=== PATIENT | female | born 1940 | race Caucasian/White ===

== ENCOUNTER 2023-04-29 17:44 | Emergency (ER) | payer MEDICARE, SELFPAY ==
[2023-04-29] VITALS (23 sets, daily range): BP systolic 111–164; BP diastolic 44–73; PULSE 78–98; RESP 15–29; TEMP 36.4–38.1; O2SAT 92–95; BMI 32.7
--- NOTE | 2023-04-29 18:24 | EKG12_ITS ---
Test Reason : DYSRHYTHMIA Blood Pressure : / mmHG Vent. Rate : 093 BPM Atrial Rate : 093 BPM P-R Int : 144 ms QRS Dur : 082 ms QT Int : 354 ms P-R-T Axes : -03 -04 026 degrees QTc Int : 440 ms Normal sinus rhythm Minimal voltage criteria for LVH, may be normal variant ( R in aVL ) Nonspecific ST and T wave abnormality Abnormal ECG Confirmed by RADHA HENNING, CELESTE ([id number]), marketing editor MARCO A KIRBY ([id number]) on 05/02/2023 9:37:07 AM Referred By: Confirmed By:DEVON GARCIA MD
[2023-04-29] MEDS: Acetaminophen 500 MG Tablet 1000 MG PO (18:47)
[2023-04-29 19:02] LABS: Absolute Lymphocyte Count 1.21 X10^3/uL (0.83-4.51); Absolute Neutrophil Count 18.1 X10^3/uL (2.0-7.7); Basophil# 0.06 X10^3/uL; Basophil% 0.3 % (0-1); Eosinophil# 0.02 X10^3/uL; Eosinophils% 0.1 % (0-5); Hematocrit 33.1 % (37-47); Hemoglobin 9.1 g/dL (12.0-15.0); Lymphocyte # 1.21 X10^3/ul (0.83-4.51); Lymphocyte % 5.9 % (19-41); Mean Corp Hgb Conc 27.5 g/dL (32-36); Mean Corpuscular Hgb 20.1 pg (27.0-32.0); Mean Corpuscular Volume 73.1 fL (81-99); Mean Platelet Vol. 10.2 fl (6.2-12.0); Monocyte# 0.88 X10^3/uL; Monocyte% 4.3 % (0-10); NRBC Flagged by Analyzer 0 % (0-5); Neutrophil # 18.14 X10^3/uL (2.7-7.7); Neutrophil % 88.9 % (47-70); Platelet Count 425 K/mm3 (150-450); RBC Distribution Width CV 19.1 % (11.6-14.6); RBC Distribution Width SD 49.5 fl (35.1-43.9); Red Blood Count 4.53 M/mm3 (4.2-5.4); White Blood Count 20.4 K/mm3 (4.4-11.0)
--- NOTE | 2023-04-29 19:03 | EX.ED.DYSGE1 ---
HPI History of Present Illness Chief Complaint: Confusion Narrative Narrative: 83-year-old female present with fever and weakness. Patient from his assisted living. Today she has been more confused per family. Patient was seen yesterday at neurology office had a concern for developing dementia. They did not give her hard diagnosis of dementia but did take her off her oxybutynin had a concern this may be causing confusion. Patient unable to transfer today which she is usually been able to do. She complains of right leg weakness more than anything. Patient is alert to self but not day, month, year. No fevers at home that she knows of. No coughing or shortness of breath. Denies urinary complaint. She does complain of back pain and states she has not any trauma. [facility] Medical History Anxiety HTN (hypertension) Home Medications acetaminophen 325 mg capsule 325 mg PO Q4H PRN fever or pain 04/29/23 [History Last Taken Unknown] amlodipine 5 mg tablet 5 mg PO DAILY 04/29/23 [History Last Taken Unknown] bisacodyl 10 mg rectal suppository [address] DAILY PRN constipation 04/29/23 [History Last Taken Unknown] cephalexin 500 mg capsule 500 mg PO Q12 #14 CAPSULES 04/29/23 [Rx Last Taken Unknown] clonidine HCl 0.1 mg tablet 0.1 mg PO Q2H PRN hypertensive emergency 04/29/23 [History Last Taken Unknown] cyanocobalamin (vitamin B-12) 1,000 mcg capsule 1,000 mcg PO DAILY 04/29/23 [History Last Taken Unknown] donepezil 5 mg tablet 5 mg PO QHS 04/29/23 [History Last Taken Unknown] famotidine 40 mg tablet 40 mg PO DAILY 04/29/23 [History Last Taken Unknown] fluoxetine 40 mg capsule 40 mg PO DAILY 04/29/23 [History Last Taken Unknown] loperamide 2 mg capsule (Anti-Diarrheal (loperamide)) 2 mg PO Q4H PRN loose stool 04/29/23 [History Last Taken Unknown] magnesium hydroxide 400 mg/5 mL oral suspension (Milk of Magnesia) 30 ml PO Q24H PRN constipation 04/29/23 [History Last Taken Unknown] mirabegron 25 mg tablet,extended release 24 hr 25 mg PO DAILY 04/29/23 [History Last Taken Unknown] mirtazapine 15 mg tablet 15 mg PO DAILY 04/29/23 [History Last Taken Unknown] polysaccharide iron complex 150 mg iron capsule 150 mg PO DAILY 04/29/23 [History Last Taken Unknown] propranolol 60 mg capsule,24 hr,extended release 60 mg PO DAILY 04/29/23 [History Last Taken Unknown] sennosides 8.6 mg tablet (Evac-U-Gen (sennosides)) 17.2 mg PO BID 04/29/23 [History Last Taken Unknown] sodium phosphates 19 gram-7 gram/118 mL enema (Fleet Enema) [address] DAILY PRN constipation 04/29/23 [History Last Taken Unknown] tramadol 100 mg tablet 100 mg PO Q6H PRN pain 04/29/23 [History Last Taken Unknown] vitamins A,C,X-jsfc-vqjwlx 4,296 mcg-226 mg-90 mg capsule (PreserVision AREDS) 1 cap PO BID 04/29/23 [History Last Taken Unknown] Allergy/AdvReac Type Severity Reaction Status Date / Time No Known Allergies Allergy Verified 04/29/23 17:47 Surgical History S/P hip replacement Social History Smoking Status: Never smoker ROS ROS ED Constitutional Constitutional ED: Denies chills, fever(s) or sweats Eyes Eyes: Denies blurry vision or change in vision ENT ENT ED: Denies ear pain or sore throat Cardiovascular Cardiovascular: Denies chest pain, palpitations or racing heartbeat Respiratory/Chest Respiratory/Chest: Denies cough, dyspnea or sputum Gastrointestinal Gastrointestinal: Denies abdominal pain, constipation, diarrhea, nausea or vomiting Genitourinary Genitourinary ED: Denies dysuria, hematuria or urinary frequency Musculoskeletal Musculoskeletal: Reports back pain; Denies arthralgias, myalgias or neck pain Integumentary Denies abscess, Abrasions or rash Neurologic Neurologic: Denies headache(s), paresthesias or weakness Psychiatric Psychiatric: Reports other Details: Confusion ; Denies anxiety, depression, suicidal ideation or suicidal thoughts Endocrine Endocrinology: Denies polydipsia or polyuria EXAM Physical Exam Const Vital Signs: 04/29/23 17:48 04/29/23 17:50 04/29/23 19:06 Temperature 100.5 F H 100.5 F H 97.5 F L Temperature Source Oral Oral Oral Pulse Rate 98 97 92 Respiratory Rate 19 H 18 15 Blood Pressure 164/73 H 164/73 H 148/56 H Blood Pressure Mean 103 103 86 Pulse Ox 92 92 92 Oxygen Delivery Method Room Air Room Air Room Air 04/29/23 20:32 04/29/23 20:32 04/29/23 21:01 Temperature 98.8 F 98.8 F Temperature Source Oral Oral Pulse Rate 84 85 87 Respiratory Rate 17 16 17 Blood Pressure 140/54 H 140/54 H Blood Pressure Mean 82 82 Pulse Ox 94 93 Oxygen Delivery Method Room Air Room Air 04/29/23 22:25 Temperature 98.8 F Temperature Source Pulse Rate 82 Respiratory Rate 16 Blood Pressure 120/45 L Blood Pressure Mean 70 Pulse Ox 95 Oxygen Delivery Method Positive well nourished General Appearance ED: NAD; Negative for pallor HEENT Reports moist mucous membranes and dry mucous membranes Mouth ED: Yes dry mucous membranes Mouth: dry mucous membranes Eyes PERRL and EOMs intact bilaterally Chest Wall inspection of chest normal Resp normal respiratory effort and clear to auscultation bilaterally Auscultation: Negative for rales, rhonchi or wheezes Cardio regular rate and regular rhythm GI normal to inspection, nondistended, normoactive bowel sounds Back/Spine Thoracic Spine / Upper Back: Negative for thoracic spinal tenderness Lumbar Spine / Lower Back: Negative for lumbar spinal tenderness Extremity normal to inspection Neuro oriented x3 and CN's II-XII intact bilaterally Sensorium / Orientation: alert Psych mental status grossly normal Skin no rashes or lesions noted and no wounds General Skin Exam: Negative for jaundice or pallor MDM MDM MDM Narrative Medical decision making narrative: Patient presenting with confusion. Patient is alert to self but not to place and time. Differential includes COVID, flu, influenza, UTI, dehydration, anemia, electrolyte abnormalities. CBC was obtained to assess white blood cell count, hemoglobin, platelets. CMP to assess liver function, renal function, electrolytes, glucose. High-sensitivity troponin EKG to assess for ischemia/dysrhythmia. Chest x-ray to rule out pneumonia. COVID, influenza, RSV swabs obtained. Urinalysis will be obtained to assess for UTI. Patient has 100.5 temperature here today so she was given a gram of Tylenol. CBC shows leukocytosis of 20.4. Hemoglobin is 9.1 without any reference range as the patient is from [place] however it does look like she has a chronic anemia based on her CBC. Renal function and electrolytes appear normal. LFTs unremarkable. High-sensitivity troponin is 8. EKG on my interpretation shows sinus tachycardia 3 bpm without sign of ischemic change or ectopy. Chest x-ray my interpretation shows no acute process. COVID, influenza, RSV all negative. Urinalysis did come back positive for infection with positive nitrites, 5-10 white blood cells, 4+ bacteria on cath specimen. Patient given a dose of Rocephin. Urine sent for culture. Case was discussed at length with Dr. De La Cruz who is on-call for Dr. Zhao. Since she has stable vital signs and has only UTI she felt it was okay to send her back to the facility. I do believe this is reasonable. I did offer to admit the patient for observation and she thought it was necessary although the patient is stable and she felt she could manage it. Patient will be given Keflex for home. Return precautions were discussed. By the time I went back to the room to discuss with the family they had already gone home. I discussed with the patient at length he appears to understand this at this point. She is discharged with a prescription for Keflex. Impression: 1. UTI 2. Delirium 3. Leukocytosis 4. Anemia Lab Data Attestation: I reviewed the patient's lab results. Labs: Laboratory Results - last 24 hr 04/29/23 04/29/23 17:59 20:30 WBC 20.4 H RBC 4.53 Hgb 9.1 L Hct 33.1 L MCV 73.1 L MCH 20.1 L MCHC 27.5 L RDW Std Deviation 49.5 H RDW Coeff of Berry 19.1 H Plt Count 425 MPV 10.2 Immature Gran % (Auto) 0.500 Neut % (Auto) 88.9 H Lymph % (Auto) 5.9 L [place] % (Auto) 4.3 Eos % (Auto) 0.1 Baso % (Auto) 0.3 Absolute Neuts (auto) 18.1 H Absolute Lymphs (auto) 1.21 Nucleated RBC % 0 Sodium 138 Potassium 3.9 Chloride 107 Carbon Dioxide 26.0 Anion Gap 5 BUN 14 Creatinine 0.72 Estim Creat Clear Calc 57.78 Est GFR (MDRD) Af Amer 100 Est GFR (MDRD) Non-Af 83 BUN/Creatinine Ratio 19.6 Glucose 110 H Calcium 8.6 Total Bilirubin 0.50 AST 22 ALT 13 Alkaline Phosphatase 110 Troponin I High Sens 8 Total Protein 6.9 Albumin 3.1 L Globulin 3.8 Albumin/Globulin Ratio 0.8 L Urine Color Yellow Urine Clarity Sl. Cloudy Urine pH 6.5 Ur Specific [place] 1.010 Urine Protein 30 H Urine Glucose (UA) Normal Urine Ketones 5 H Urine Occult Blood 50 H Urine Nitrite Positive H Urine Bilirubin Negative Urine Urobilinogen Normal Ur Leukocyte Esterase 25 H Urine RBC 0-5 SEEN Urine WBC 5-10 SEEN Ur Squamous Epith Cells 0 SEEN Urine Bacteria 4+ Urine Mucus 0 SEEN Radiography Diagnostic Testing: Clinical Impression(s) from Imaging Studies Chest X-Ray 04/29/23 19:18 IMPRESSION: Hiatal hernia. Electronically Signed: Jagdish James DO at 19:54 EST Reading Location ID and State: [address] [place] [address] Tel [phone], Service support , Discharge Plan Triage Chief Complaint: Confusion ED Provider: Horacio Romero Dx/Rx/DC Orders Instructions: ED ALOC, ED Cystitis Female Adult Prescriptions: New cephalexin 500 mg capsule 500 mg PO Q12 Qty: 14 0RF No Action acetaminophen 325 mg capsule 325 mg PO Q4H PRN (Reason: fever or pain) amlodipine 5 mg tablet 5 mg PO DAILY bisacodyl 10 mg suppository [address] DAILY PRN (Reason: constipation) clonidine HCl 0.1 mg tablet 0.1 mg PO Q2H PRN (Reason: hypertensive emergency) donepezil 5 mg tablet 5 mg PO QHS famotidine 40 mg tablet 40 mg PO DAILY Fleet Enema 19-7 gram/118 mL enema [address] DAILY PRN (Reason: constipation) fluoxetine 40 mg capsule 40 mg PO DAILY loperamide [Anti-Diarrheal (loperamide)] 2 mg capsule 2 mg PO Q4H PRN (Reason: loose stool) Rx Instructions: administer after each loose stool until symptoms controlled; do not exceed 8 mg per 24 hrs magnesium hydroxide [Milk of Magnesia] 400 mg/5 mL suspension 30 ml PO Q24H PRN (Reason: constipation) mirabegron 25 mg tablet extended release 24 hr 25 mg PO DAILY mirtazapine 15 mg tablet 15 mg PO DAILY polysaccharide iron complex 150 mg iron capsule 150 mg PO DAILY PreserVision AREDS 4,296 mcg-226 mg-90 mg capsule 1 cap PO BID propranolol 60 mg capsule,extended release 24 hr 60 mg PO DAILY sennosides [Evac-U-Gen (sennosides)] 8.6 mg tablet 17.2 mg PO BID tramadol 100 mg tablet 100 mg PO Q6H PRN (Reason: pain) cyanocobalamin (vitamin B-12) 1,000 mcg capsule 1,000 mcg PO DAILY Primary Care Provider: Manuel Zhao Referrals: Manuel Zhao MD [Primary Care Provider] - Disposition Disposition: Home, Self Care
--- NOTE | 2023-04-29 19:18 | RAD_ITS ---
INDICATION: fever EXAMINATION/TECHNIQUE: X-RAY - XR Chest 1 View COMPARISON: FINDINGS: LINES/DEVICES: None. LUNGS: No consolidation, edema or effusion. No pneumothorax. MEDIASTINUM AND CARDIOVASCULAR STRUCTURES: Cardiac silhouette not enlarged. Central airways and mediastinal contour are unremarkable. BONES AND SOFT TISSUES: Possible old right sixth rib fracture. Hiatal hernia. RAD/Chest 1 View (Portable) IMPRESSION: Hiatal hernia. Electronically Signed: Jagdish James DO at 19:54 EST ,
[2023-04-29 19:20] LABS: ALB/GLOB Ratio 0.8 RATIO (0.9-2.4); AST(SGOT) 22 U/L (15-37); Alanine Aminotransfer ALT/SGPT 13 U/L (13-56); Albumin, Serum 3.1 g/dL (3.2-5.0); Alkaline Phosphatase 110 U/L (45-117); Anion Gap 5 (5-15); BUN 14 mg/dL (7-18); BUN/Creat Ratio 19.6 RATIO (10-20); Calcium,Total 8.6 mg/dL (8.5-10.1); Chloride 107 mmol/L (98-107); Creatinine, Serum 0.72 mg/dL (0.55-1.02); EST Glomerular Filtration Rate 83 mL/min (>60); Est Glom Filt Rate - Afr Amer 100 mL/min (>60); Estimated Creatinine Clearance 57.78 ml/min; Globulin 3.8 g/dL (2.2-4.2); Glucose 110 mg/dL (74-106); Potassium 3.9 mmol/L (3.5-5.1); Protein, Total 6.9 g/dL (6.4-8.2); Sodium Level 138 mmol/L (136-145); Troponin-I HS 8 pg/mL (3.0-54.0)
[2023-04-29 20:37] LABS: Mucous, Urine 0 SEEN /hpf (<or=2+); Squamous Epithelial Cells - UA 0 SEEN /hpf (5-10)
[2023-04-29 20:38] LABS: Color, Urine Yellow (Yellow); Glucose, Dipstick Normal (Normal); Ketone-Dipstick 5 mg/dl (Negative); Leukocyte Esterase-Dipstick 25 /ul (Negative); Nitrite-Dipstick Positive (Negative); Occult Blood-Urine 50 /ul (Negative); Protein-Dipstick 30 mg/dl (Negative); Urine Bilirubin Dipstick Negative (Negative); Urine Clarity Sl. Cloudy (Clear); Urine Urobilinogen Normal (Normal); Urine pH 6.5 (5.0 - 8.0)
[2023-04-29 20:52] LABS: Bacteria 4+ /hpf (None Seen); Red Blood Cells-Urine 0-5 SEEN /hpf (0-5); White Blood Cells 5-10 SEEN /hpf (0-5)
[2023-04-29] MEDS: Ceftriaxone 1 GM/50 ML BAG IV (21:15)
--- NOTE | 2023-04-29 22:11 | ED.RN ---
report called to [facility] informed that patient would be discharged back to their facility, still awaiting ETA from [facility].
[2023-04-30 04:35] VITALS: BP 140/98; PULSE 88; RESP 19; O2SAT 96
== END 2023-04-30 06:35 | disposition home or self-care (01) ==
PROVIDERS: Emergency Provider Student in an Organized Health Care Education/Training Program; PCP Family Medicine; Visit Provider Student in an Organized Health Care Education/Training Program
DX: N39.0 Urinary tract infection, site not specified (principal); D64.9 Anemia, unspecified; Z11.52 Encounter for screening for COVID-19; D72.829 Elevated white blood cell count, unspecified; R41.0 Disorientation, unspecified; R00.0 Tachycardia, unspecified; I10 Essential (primary) hypertension; F41.9 Anxiety disorder, unspecified; Z79.899 Other long term (current) drug therapy
CPT/HCPCS: 71045; 80053; 81001; 84484; 85025; 87077; 87086; 87088; 87186; 87631; 93005; 96365; 99285; J7050; P9612; A4216

== ENCOUNTER 2023-06-09 08:04 | Day surgery (SDC) | payer MEDICARE, SELFPAY ==
--- NOTE | 2023-06-09 08:36 | PCM.HP.STD ---
HPI - General HPI Narrative TAMIE GONSALEZ, is a 83 F who presents for removal of a nonfunctioning InterStim device and placement of Axonics stage I and II. Informed consent has been obtained. The patient recently moved into this area and establish care with me. Her battery has been for some time and it worked very well for her issues with urge incontinence and nocturnal enuresis. She would like to have it replaced. [facility] Medical History (Updated 06/09/23 @ 09:[address] Estrella Teixeira MD) Anxiety Arthritis Gastric reflux History of edema HTN (hypertension) Injury of head and neck Left knee pain Left rotator cuff tear arthropathy Left shoulder pain Nocturnal enuresis Non-smoker Osteoarthritis of left knee Post-menopausal Urge incontinence Urinary frequency Uses wheelchair Wears glasses Home Medications acetaminophen 325 mg capsule 325 mg PO Q4H PRN fever or pain 04/29/23 [History Last Taken Unknown] amlodipine 5 mg tablet 5 mg PO DAILY 04/29/23 [History Last Taken Unknown] bisacodyl 10 mg rectal suppository 10 mg [place] DAILY PRN constipation 04/29/23 [History Last Taken Unknown] clonidine HCl 0.1 mg tablet 0.1 mg PO Q2H PRN hypertensive emergency 04/29/23 [History Last Taken Unknown] cyanocobalamin (vitamin B-12) 1,000 mcg capsule 1,000 mcg PO DAILY 04/29/23 [History Last Taken Unknown] famotidine 40 mg tablet 40 mg PO DAILY 04/29/23 [History Last Taken Unknown] loperamide 2 mg capsule (Anti-Diarrheal (loperamide)) 2 mg PO Q4H PRN loose stool 04/29/23 [History Last Taken Unknown] magnesium hydroxide 400 mg/5 mL oral suspension (Milk of Magnesia) 30 ml PO Q24H PRN constipation 04/29/23 [History Last Taken Unknown] polysaccharide iron complex 150 mg iron capsule 150 mg PO DAILY 04/29/23 [History Last Taken Unknown] propranolol 60 mg capsule,24 hr,extended release 60 mg PO DAILY 04/29/23 [History Last Taken Unknown] sennosides 8.6 mg tablet (Evac-U-Gen (sennosides)) 17.2 mg PO BID 04/29/23 [History Last Taken Unknown] tramadol 100 mg tablet 100 mg PO Q6H PRN pain 04/29/23 [History Last Taken Unknown] vitamins A,C,I-pfek-sxmxbj 4,296 mcg-226 mg-90 mg capsule (PreserVision AREDS) 1 cap PO BID 04/29/23 [History Last Taken Unknown] aspirin 325 mg tablet,delayed release 325 mg PO DAILY 06/03/23 [History Last Taken Unknown] oxybutynin chloride 5 mg tablet 5 mg PO DAILY 06/03/23 [History Last Taken Unknown] cephalexin 500 mg capsule 500 mg PO Q12 post-operative 3 days #6 CAPSULES 06/09/23 [Rx Last Taken Unknown] oxycodone-acetaminophen 5 mg-325 mg tablet (Percocet) 1 tab PO Q8H PRN pain 3 days #10 tabs 06/09/23 [Rx Last Taken Unknown] Allergy/AdvReac Type Severity Reaction Status Date / Time No Known Allergies Allergy Verified 06/09/23 08:48 Surgical History Hx of bilateral cataract extraction S/P hip replacement Social History Smoking Status: Never smoker ROS Constitutional Constitutional: Reports systems reviewed and no addt'l complaints, except as documented; Denies body ache(s), chills, fever(s) or night sweats Eyes Eyes: Reports systems reviewed and no addt'l complaints, except as documented ENT HEENT: Reports systems reviewed and no addt'l complaints, except as documented Cardiovascular Cardiovascular: Denies abdominal pain, chest pain, diaphoresis, fatigue or nausea Respiratory/Chest Respiratory/Chest: Denies chest congestion, chest tightness or cough Gastrointestinal Gastrointestinal: Denies abdominal pain, anorexia, nausea or vomiting Genitourinary Genitourinary: Reports urinary frequency, urinary incontinence and urinary urgency; Denies abdominal discomfort, flank pain or hematuria Musculoskeletal Musculoskeletal: Reports systems reviewed and no addt'l complaints, except as documented Integumentary Integumentary: Reports systems reviewed and no addt'l complaints, except as documented Neurologic Neurologic: Reports systems reviewed and no addt'l complaints, except as documented Psychiatric Psychiatric: Reports systems reviewed and no addt'l complaints, except as documented Endocrine Endocrinology: Reports systems reviewed and no addt'l complaints, except as documented Hematologic/Lymphatic Hematologic/Lymphatic: Reports systems reviewed and no addt'l complaints, except as documented Allergic/Immunologic Allergic/Immunologic: Reports systems reviewed and no addt'l complaints, except as documented Physical Exam Const alert, oriented x3 and no apparent distress General Appearance: cooperative, comfortable and well kempt HEENT normocephalic, head/scalp atraumatic, hearing grossly normal bilaterally, external ears normal, external nose normal and moist oral mucous membranes Eyes General Eye: normal appearance of both eyes Neck supple General: normal visual inspection Lymph Lymphatic: no lymphedema noted Chest inspection of chest normal Chest: symmetrical chest wall rise Resp normal respiratory effort, normal air movement and no retractions Cardio regular rate and regular rhythm GI soft to palpation, non-tender and non-distended no CVA tenderness Back/Spine no CVA tenderness Extremity normal to inspection Skin no rashes or lesions noted, no wounds, skin turgor normal, no jaundice, no petechiae and no mottling Neuro oriented x3 and CN's II-XII intact bilaterally Psych mental status grossly normal Results Lab / Micro Data 06/09/23 09:05 06/09/23 09:05 Assessment & Plan Assessment/Plan (1) Urge incontinence: (2) Nocturnal enuresis: PLAN: Plan Proceed with InterStim battery and lead removal and Axonics stage I and II insertion Informed consent has been obtained Vancomycin preoperatively
--- NOTE | 2023-06-09 08:41 | EX.PCM.DISCH ---
Discharge Instructions Diet Discharge Diet: No restrictions Activity Discharge Activity: May Shower (on Tuesday) May resume sexual activity in: 4 weeks Dressing / Incision Call your doctor if your incision/area has: Continuous Slow Oozing, Sudden Increased Bleeding, Increased Pain/ Swelling, Increased Redness, Foul Smelling Discharge and Swelling at the incision site Call your doctor if you observe: Fever of 101 or Higher, Inability to urinate and Inability to have a bowel movement Follow Up Care Please Follow Up With: Estrella Teixeira MD When: in the office in 4 weeks Test Results: Test results from this visit will be discussed in further detail at your follow-up appointment, if applicable. Discharge Plan Admission Attending Provider: Estrella Teixeira Primary Care Provider: Manuel Zhao Discharge Orders/Prescriptions Prescriptions: New oxycodone-acetaminophen [Percocet] 5-325 mg tablet 1 tab PO Q8H PRN (Reason: pain) 3 Days Qty: 10 0RF cephalexin [cephalexin] 500 mg capsule 500 mg PO Q12 3 Days Qty: 6 0RF Continued acetaminophen 325 mg capsule 325 mg PO Q4H PRN (Reason: fever or pain) amlodipine 5 mg tablet 5 mg PO DAILY bisacodyl 10 mg suppository 10 mg CO DAILY PRN (Reason: constipation) clonidine HCl 0.1 mg tablet 0.1 mg PO Q2H PRN (Reason: hypertensive emergency) Patient Comments: SBP>180 AND OR DBP>100 famotidine 40 mg tablet 40 mg PO DAILY loperamide [Anti-Diarrheal (loperamide)] 2 mg capsule 2 mg PO Q4H PRN (Reason: loose stool) Rx Instructions: administer after each loose stool until symptoms controlled; do not exceed 8 mg per 24 hrs magnesium hydroxide [Milk of Magnesia] 400 mg/5 mL suspension 30 ml PO Q24H PRN (Reason: constipation) polysaccharide iron complex 150 mg iron capsule 150 mg PO DAILY PreserVision AREDS 4,296 mcg-226 mg-90 mg capsule 1 cap PO BID propranolol 60 mg capsule,extended release 24 hr 60 mg PO DAILY sennosides [Evac-U-Gen (sennosides)] 8.6 mg tablet 17.2 mg PO BID tramadol 100 mg tablet 100 mg PO Q6H PRN (Reason: pain) cyanocobalamin (vitamin B-12) 1,000 mcg capsule 1,000 mcg PO DAILY aspirin 325 mg tablet,delayed release (DR/EC) 325 mg PO DAILY oxybutynin chloride 5 mg tablet 5 mg PO DAILY Referrals / Follow Up: Manuel Zhao MD [Primary Care Provider] - Disposition Disposition (needs filled in before D/C Order can be placed): Home, Self Care
[2023-06-09 08:49] VITALS: BP 159/79; PULSE 72; RESP 16; TEMP 36.1; O2SAT 98; BMI 31.3
[2023-06-09] MEDS: Vancomycin HCl 1,250 MG in 0.9% Normal Saline (250mL Bag) 250 ML 167 MG IV (09:09)
[2023-06-09] MEDS: Lactated Ringers 1,000 ML 15 ML IV (09:09)
[2023-06-09 09:15] LABS: Hematocrit 34.8 % (37-47); Hemoglobin 9.7 g/dL (12.0-15.0); Mean Corp Hgb Conc 27.9 g/dL (32-36); Mean Corpuscular Hgb 20.2 pg (27.0-32.0); Mean Corpuscular Volume 72.5 fL (81-99); Mean Platelet Vol. 9.5 fl (6.2-12.0); Platelet Count 394 K/mm3 (150-450); RBC Distribution Width CV 18.7 % (11.6-14.6)
[2023-06-09 09:33] LABS: Anion Gap 1 (5-15); BUN 21 mg/dL (7-18); BUN/Creat Ratio 28.1 RATIO (10-20); Calcium,Total 8.9 mg/dL (8.5-10.1); Chloride 110 mmol/L (98-107); Creatinine, Serum 0.75 mg/dL (0.55-1.02); EST Glomerular Filtration Rate 79 mL/min (>60); Est Glom Filt Rate - Afr Amer 95 mL/min (>60); Estimated Creatinine Clearance 56.46 ml/min; Glucose 106 mg/dL (74-106); Potassium 3.8 mmol/L (3.5-5.1); Sodium Level 141 mmol/L (136-145)
--- NOTE | 2023-06-09 09:45 | RAD_ITS ---
STUDY: X-RAY - PELVIS REASON FOR EXAM: Female, 83 years old. REMOVAL INTERSTIM, AXONICS STAGE 1 2 -- -- fluoro time 29 sec -- 12.53 mgy TECHNIQUE: 6 intraoperative views of the pelvis obtained. COMPARISON: None. FINDINGS: Intraoperative fluoroscopy utilized during stimulator replacement . RAD/Pelvis 1 or 2 Views IMPRESSION: Intraoperative fluoroscopy. Electronically Signed: Seth Berry MD at 11:14 EDT ,
[2023-06-09] MEDS: Lidocaine 2% /Epi 1:100 (20ml) 20 ML VIAL (10:42)
[2023-06-09 11:00] VITALS: BP 159/79; BP 169/77; PULSE 79; RESP 16; TEMP 37.5; O2SAT 96
[2023-06-09 11:05] VITALS: BP 155/83; BP 159/79; PULSE 77; RESP 16; O2SAT 95
[2023-06-09 11:10] VITALS: BP 159/79; BP 168/70; PULSE 76; RESP 16; O2SAT 95
[2023-06-09 11:14] VITALS: BP 159/79; BP 167/73; PULSE 77; RESP 16; TEMP 37.3; O2SAT 95
[2023-06-09 11:39] VITALS: BP 159/79
--- NOTE | 2023-06-09 12:17 | PCM.OPRPT ---
Report of Operation Date of Procedure: 06/09/23 Pre-Operative Diagnosis: Urge incontinence, nocturnal enuresis Post-Operative Diagnosis: Same Surgery/Procedure Performed:: Removal InterStim lead and battery, Axonics stage I and II Surgeon: Estrella Teixeira Type of Anesthesia: MAC Estimated Blood Loss (mL): 5 cc Description of Procedure: The patient is an 83-year-old female with an indwelling InterStim device that is no longer functioning. She is having recurrence of her urge incontinence and nocturnal enuresis and has agreed to proceed with removal of the InterStim battery and lead with placement of Axonics battery and lead. Informed consent was obtained. The patient was taken to the operating room and placed on the in a prone position on the operating room table. She was appropriately secured and padded. Anesthesia monitored the head, neck, airway, IV access and vital signs throughout the case. Once anesthesia was appropriately administered the patient was prepped and draped in usual sterile fashion. The incisions from the previous InterStim insertion site were infiltrated with lidocaine. These incisions were reopened with a knife and Bovie cautery was used to identify the battery which was then brought into the operative field. The lead was grasped with a hemostat and the battery was removed. With tension on the lead the insertion site of the lead was identified in the area overlying this was opened with a knife. Blunt dissection was performed until the lead was identified. Using 2 hemostats and constant pressure, the lead in its entirety with all tines intact was removed. These areas were irrigated for infection control. The decision was made to place the new unit with the lead on the patient's contralateral side for prevention of infection. Using fluoroscopic visualization the S3 foramen was marked out onto her skin and the insertion sites were infiltrated with lidocaine. The needle was placed through the S3 foramen on the patient's right side and stimulation provided minimal анна response with no foot rotation. The decision was made to leave the lead in this location. The guidewire was placed through the needle which was then removed. A skin incision was made and the dilator was inserted over the guidewire. The lead was placed into the dilator through the foramen. The dilator was retracted leaving the lead in good position. All 4 portions of the lead received a анна response without foot rotation. The lead was then left in situ and was tunneled into the existing pocket site. The pocket site was dry. Then lead was dried and then inserted into the Axonics battery and secured using the torque wrench. The battery was then placed into the pocket site and closed with 2 layers including 3-0 interrupted Vicryl followed by 4-0 Monocryl in subcuticular fashion. Skin glue was then applied. The new lead insertion site and the removal sites were both closed in the same fashion with 3-0 Vicryl followed by 4-0 Monocryl and skin glue. Once this was completely dry, the patient was awakened and taken to the recovery room in good condition. There were no complications during this procedure. Grafts/Implants Used: Axonics lead and battery Complications None Admit VTE Documentation VTE Present on Admission: No VTE Mechan Device Prophylaxis: None VTE Pharm Prophylaxis ordered?: No Reason prophylaxis not ordered:: Treatment Not Indicated
== END 2023-06-09 12:11 | disposition home or self-care (01) ==
LOC: SDC 08:13 → AC 08:15
PROVIDERS: PCP Family Medicine; Referring Provider Family Medicine; Visit Provider Urology
PROC: (CPT 64590; principal; 2023-06-09 09:40)
DX: Z45.42 Encounter for adjustment and management of neurostimulator (principal); N39.41 Urge incontinence; N39.44 Nocturnal enuresis; I10 Essential (primary) hypertension; R35.0 Frequency of micturition; Z79.899 Other long term (current) drug therapy; Z79.82 Long term (current) use of aspirin; F41.9 Anxiety disorder, unspecified; M19.90 Unspecified osteoarthritis, unspecified site; K21.9 Gastro-esophageal reflux disease without esophagitis
CPT/HCPCS: 64590; 64581; 00300; 72170; 76000; 80048; 85027; J7050; J7120; J2405

== ENCOUNTER → 2023-08-25 | Outpatient (CLI) | payer MEDICARE, SELFPAY | END | disposition home or self-care (01) | PROVIDERS: PCP Family Medicine; Referring Provider Surgery; Visit Provider Surgery | DX: R19.7 Diarrhea, unspecified (principal); R10.9 Unspecified abdominal pain | CPT/HCPCS: 87177; 87209; 87493 ==

== ENCOUNTER 2023-09-20 15:38 | Inpatient (IN) | payer MEDICARE, SELFPAY ==
[2023-09-20] VITALS (19 sets, daily range): BP systolic 149–222; BP diastolic 59–83; PULSE 69–87; RESP 14–18; TEMP 36.2–37.5; O2SAT 87–100; BMI 32.1
--- NOTE | 2023-09-20 09:48 | PRE.ANES_ITS ---
ASA Classification* ASA Classification ASA Classification: 3 Assessment & Plan Anesthesia* Anesthesia Assessment Anesthesia Assessment: Discussed sedation and/or anesthesia options, risks, benefits, and alternatives with patient/parents/legal guardian/POA. Questions invited. The patient/parents/legal guardian/POA seems to understand and agrees to proceed with anesthesia plan. Reviewed the physical assessment, medical history, allergy history and patient home medications list prior to surgery/procedure/anesthetic and documented any changes. Performed airway and anesthesia risk assessments. Anesthesia Type Anesthesia Type: MAC Anesthesia Focused Assessment* Airway Assessment Mouth opens: >3 cm Mallampati Score: II Focused Labs Anesthesia Preop lab: CBC WBC 12.0 K/mm3 (4.4-11.0) H 06/09/23 09:05 RBC 4.80 M/mm3 (4.2-5.4) 06/09/23 09:05 Hgb 9.7 g/dL (12.0-15.0) L 06/09/23 09:05 Hct 34.8 % (37-47) L 06/09/23 09:05 Plt Count 394 K/mm3 (150-450) 06/09/23 09:05 CHEMISTRY Potassium 3.8 mmol/L (3.5-5.1) 06/09/23 09:05 Sodium 141 mmol/L (136-145) 06/09/23 09:05 BUN 21 mg/dL (7-18) H 06/09/23 09:05 Creatinine 0.75 mg/dL (0.55-1.02) 06/09/23 09:05 Glucose 106 mg/dL (74-106) 06/09/23 09:05 COAG Pre-Assessment Diagnosis/Proposed Procedure Planned Operative Procedure(s): COLONOSCOPY/EGD Anesthesia History 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 When Was Last Pacemaker Check QUESTION #4 FULL TEXT: You/Your Family Experience fever (hyperthermia) with Anesthesia Last Oral Intake Last Oral intake: Last Oral Intake NPO since Meds taken in AM with sips of water? Meds patient instructed to take am of surgery PONV PONV - electrical journeyman: PONV - electrical journeyman Female Yes 09/19/23 15:20 HX of Motion Sickness No 09/19/23 15:20 HX of N/V After Surgery No 09/19/23 15:20 Non-Smoker Yes 09/19/23 15:20 Duration of Surgery greater No 09/19/23 15:20 than 60 minutes Number of Risk Factors 2 09/19/23 15:20 PONV Score Moderate Risk 09/19/23 15:20 Height & Weight Height & Weight: Anesthesia: Height & Weight Height 5 ft 5 in 08/24/23 09:37 Respiratory Assessment Respiratory Assessment - electrical journeyman: Respiratory Tract Infection Hx - electrical journeyman Hx Respiratory Tract Infection No 09/19/23 15:20 STOP Sleep Apnea STOP Sleep Apnea - electrical journeyman: STOP Sleep Apnea - electrical journeyman Hx Hypertension Yes: CONTROLLED ON MED 09/19/23 15:20 Hx Sleep Apnea No 09/19/23 15:20 CPAP No 09/19/23 15:20 BIPAP Do you snore loudly (louder No 09/19/23 15:20 than talking or can be heard Do you often feel tired/ No 09/19/23 15:20 fatigued/ sleepy during daytime? Has anyone observed you stop No 09/19/23 15:20 breathing during sleep? STOP Results Negative 09/19/23 15:20 QUESTION #5 FULL TEXT : Do you snore loudly (louder than talking or can be heard through closed doors)? Tobacco Use History Tobacco Use History - electrical journeyman: Tobacco Use History - electrical journeyman Tobacco Use Smoking Status Former smoker 09/19/23 15:20 Hx Tobacco Use No 09/19/23 15:20 Years Smoking Packs Smoked per Day Smoking Cessation Date was No - quit smoking greater 09/19/23 15:20 within the last 15 years than 15 years ago Hx Smoking Cessation Date Hx Smoking Cessation Counseling Hematologic Medial History Hematologic Hx - electrical journeyman: Hematologic Medical Hx - chipper feeder Hx of Blood Transfusion No 09/19/23 15:20 Hx of Transfusion in last 3 No 09/19/23 15:20 Months Date of Last Transfusion (if within last 3 months) Ever experience any problems No 09/19/23 15:20 with transfusion(s)? Specify any problems Hx of Preganancy in last 3 No 09/19/23 15:20 Months Nurse Filling Out Transfusion VCHRISTIN 09/19/23 15:20 & Questions: Date: 09/19/23 09/19/23 15:20 Time: 15:09/19/23 15:20 Patient unable to answer at this time (ie. confused, unrespo /Reproduction History /Reproductive History - electrical journeyman: /Reproductive Hx- electrical journeyman Hx Now Gestational Age (in weeks): EDC: Hx Hx Para Hx Section SAB Active Medications Active Medications: Current Medications Generic Name Dose Route Start Last Admin Trade Name Freq PRN Reason Stop Dose Admin Lactated Ringer's 1,000 mls @ 15 mls/hr 09/20/23 09:15 IV .Q48H MARCIAL PFSH Medical History Walker as ambulation aid Bladder disease Easy bruising Back pain Parkinson's disease Former smoker Diarrhea Belching Abdominal pain C. difficile diarrhea Nocturnal enuresis Urinary frequency Urge incontinence Wears glasses Post-menopausal Uses wheelchair Arthritis Injury of head and neck Gastric reflux Non-smoker History of edema Osteoarthritis of left knee Left rotator cuff tear arthropathy Left shoulder pain Left knee pain HTN (hypertension) Anxiety Home Medications ?Medication ?Instructions ?Recorded ?Last Taken ?Type acetaminophen 325 mg capsule 325 mg PO Q4H PRN fever or pain 04/29/23 Unknown History amlodipine 5 mg tablet 5 mg PO DAILY 04/29/23 09/20/23 09:00 History bisacodyl 10 mg rectal suppository 10 mg CA DAILY PRN constipation 04/29/23 Unknown History clonidine HCl 0.1 mg tablet 0.1 mg PO Q2H PRN hypertensive 04/29/23 Unknown History emergency cyanocobalamin (vitamin B-12) 1,000 mcg PO DAILY 04/29/23 09/19/23 History 1,000 mcg capsule famotidine 40 mg tablet 40 mg PO DAILY 04/29/23 09/19/23 History loperamide 2 mg capsule 2 mg PO Q4H PRN loose stool 04/29/23 Unknown History (Anti-Diarrheal (loperamide)) magnesium hydroxide 400 mg/5 mL 30 ml PO Q24H PRN constipation 04/29/23 Unknown History oral suspension (Milk of Magnesia) polysaccharide iron complex 150 mg 150 mg PO DAILY 04/29/23 09/19/23 History iron capsule propranolol 60 mg capsule,24 60 mg PO DAILY 04/29/23 09/20/23 History hr,extended release sennosides 8.6 mg tablet 17.2 mg PO BID 04/29/23 09/19/23 History (Evac-U-Gen (sennosides)) tramadol 100 mg tablet 100 mg PO Q6H PRN pain 04/29/23 Unknown History vitamins A,C,D-yogb-rrceea 4,296 1 cap PO BID 04/29/23 09/19/23 History mcg-226 mg-90 mg capsule (PreserVision AREDS) donepezil 5 mg disintegrating 5 mg PO QHS 08/24/23 09/19/23 History tablet mirtazapine 15 mg tablet 15 mg PO DAILY 08/24/23 09/19/23 History omeprazole 40 mg capsule,delayed 40 mg PO DAILY #60 caps 09/09/23 Unknown Rx release Allergy/AdvReac Type Severity Reaction Status Date / Time No Known Allergies Allergy Verified 09/20/23 09:40 Surgical History Hx of surgical procedure Hx of bilateral cataract extraction S/P hip replacement Social History Smoking Status: Former smoker Review of Systems (Anesthesia) ROS Narrative System reviewed and no additional complaints, except as documented.
[2023-09-20] MEDS: Lactated Ringers 1,000 ML 15 ML IV (09:59)
--- NOTE | 2023-09-20 10:30 | IMM_PTH ---
PATIENT: TAMIE GONSALEZ LOC: MS3 U#:[id number] AGE/SX: 83/F [place] [facility] [place]: Dr. Eduardo Francis MD : 1940 BED: 1 DIS: 09/24/2023 SPEC #: [id number] RECD: 09/21/23 08:27 STATUS: SO RENila #: [id number] CRISTINA: 09/20/23 10:[address]: Eduardo Francis DEPT: IMMUNOHISTOCHEMISTRY RECD BY: Patrick Diez ENTERED: 09/21/23 08:28 SP TYPE: IMMUNO OTHR DR: Dr. Manuel Zhao MD Tissues: Gastric mucous membrane Procedures: H Pylori (initial) PHYSICIAN & [place] [id number] SPECIMEN INFORMATION: Tissue Source: Antrum biopsy Clinical Info: Diarrhea, belching Specimen Number: [id number] CPT code: 17373 METHODOLOGY: Deparaffinized sections of prefer/formalin-fixed tissue or PAP/DQ stained slides are incubated with monoclonal/polyclonal antibodies/oligonucleotide probes. Localization is made via biotin free immunoperoxidase method. Appropriate controls are performed and reacted as expected. Results on target cell population are indicated in the following table: RESULTS: ANTIBODY / CLONE RESULT H Pylori (polyclonal) negative These tests were developed and their performance characteristics determined by [facility]. They may not have been cleared or approved by the U.S. Food and Drug Administration. The FDA has determined that such clearance or approval is not necessary. The above immunohistochemical/dualISH markers are ordered and reviewed by the Pathologist. INTERPRETATION: Gastric antrum biopsy: Negative for Helicobacter pylori organisms. DAMIEN/ 09/22/2023
--- NOTE | 2023-09-20 10:30 | EGD_PTH ---
PATIENT: TAMIE GONSALEZ LOC: MS3 U#:[id number] AGE/SX: 83/F [place] [facility] [place]: Dr. Eduardo Francis MD : 1940 BED: 1 DIS: 09/24/2023 SPEC #: [id number] RECD: 09/20/23 13:50 STATUS: SO HANNAH #: [id number] CRISTINA: 09/20/23 10:[address]: Eduardo Francis DEPT: SURGICAL PATHOLOGY RECD BY: Jessica Butler ENTERED: 09/21/23 07:57 SP TYPE: EGD BIOPSY OT DR: Dr. Manuel Zhao MD Tissues: Gastric mucous membrane Procedures: Surgery Specimen Level IV HEADER OPERATION: Colonoscopy, EGD biopsy PRE-OP DIAGNOSIS: Diarrhea, belching TISSUE SUBMITTED: Antrum biopsy MICROSCOPIC DIAGNOSIS Gastric antrum, biopsy: Mild chronic inflammation. Focal acute inflammation. See comment. DAMIEN/ 09/22/2023 COMMENT The results of immunohistochemistry for Helicobacter pylori will be reported separately ([id number]). MICROSCOPIC DESCRIPTION Slides are reviewed. GROSS DESCRIPTION Received in fixative is one container labeled with the patient's name and designated Antrum biopsy. The specimen consists of one irregular fragment of light perez soft tissue that measures 0.3 x 0.3 x 0.1 cm. The specimen is totally submitted in one cassette. Indira 09/21/2023 TC:2 CPT:87744
--- NOTE | 2023-09-20 12:27 | PCM.HP.BLA ---
History and Physical Date of Admission: 09/20/23 Intake Vital Signs 06/09/2407:49 08/23/2408:37 Height 5 ft 5 in 5 ft 5 in BP 155/75 H Blood Pressure Location Lt brachial Position Sitting Respiration 18 Intake Visit Reasons: CHANGE IN BOWEL HABITS & GERD Chief Complaint: diarrhea, abd pain, belching Process Improvement Analyst Required: No Is patient in pain?: Yes (upper abdomen) Allergies No Known Allergies Allergy (Verified 08/24/23 09:38) Medications ?Medication ?Instructions ?Recorded ?Confirmed ?Type acetaminophen 325 mg capsule 325 mg PO Q4H PRN fever or pain 04/29/23 08/24/23 History amlodipine 5 mg tablet 5 mg PO DAILY 04/29/23 08/24/23 History bisacodyl 10 mg rectal suppository 10 mg MS DAILY PRN constipation 04/29/23 08/24/23 History clonidine HCl 0.1 mg tablet 0.1 mg PO Q2H PRN hypertensive 04/29/23 08/24/23 History emergency cyanocobalamin (vitamin B-12) 1,000 mcg PO DAILY 04/29/23 08/24/23 History 1,000 mcg capsule famotidine 40 mg tablet 40 mg PO DAILY 04/29/23 08/24/23 History loperamide 2 mg capsule 2 mg PO Q4H PRN loose stool 04/29/23 08/24/23 History (Anti-Diarrheal (loperamide)) magnesium hydroxide 400 mg/5 mL 30 ml PO Q24H PRN constipation 04/29/23 08/24/23 History oral suspension (Milk of Magnesia) polysaccharide iron complex 150 mg 150 mg PO DAILY 04/29/23 08/24/23 History iron capsule propranolol 60 mg capsule,24 60 mg PO DAILY 04/29/23 08/24/23 History hr,extended release sennosides 8.6 mg tablet 17.2 mg PO BID 04/29/23 08/24/23 History (Evac-U-Gen (sennosides)) tramadol 100 mg tablet 100 mg PO Q6H PRN pain 04/29/23 08/24/23 History vitamins A,C,Z-sxxf-yywjip 4,296 1 cap PO BID 04/29/23 08/24/23 History mcg-226 mg-90 mg capsule (PreserVision AREDS) donepezil 5 mg disintegrating 5 mg PO QHS 08/24/23 08/24/23 History tablet fluoxetine 40 mg capsule 40 mg PO DAILY 08/24/23 08/24/23 History mirtazapine 15 mg tablet 15 mg PO DAILY 08/24/23 08/24/23 History Have you fallen in the past year?: No PFSH Medical History (Updated 08/24/23 @ 09:53 by Sun Galvin) Diarrhea Belching Abdominal pain C. difficile diarrhea Nocturnal enuresis Urinary frequency Urge incontinence Wears glasses Post-menopausal Uses wheelchair Arthritis Injury of head and neck Gastric reflux Non-smoker History of edema Osteoarthritis of left knee Left rotator cuff tear arthropathy Left shoulder pain Left knee pain HTN (hypertension) Anxiety Surgical History Hx of bilateral cataract extraction S/P hip replacement Social History Smoking Status: Never smoker HPI HPI HPI: Patient is an 83-year-old female brought here from [place] by her family. She is being seen because she is having a lot of belching and upper abdominal discomfort especially after eating and a lot of loose stools. She recently also had C. difficile about 3 weeks ago. ROS General General: No weight change, appetite, fatigue, colon cancer, breast cancer or weakness HEENT HEENT: Yes difficulty swallowing, eye injury and eye surgery; No swollen glands or hoarseness Endo Endocrine: No thyroid disease, diabetes mellitus, thyroid cancer, Hair loss, heat intolerance or cold intolerance Skin Skin: No rash or changing moles Breast Breast: No left breast lump, right breast lump, nipple discharge, breast pain, abnormal mammogram, abnormal US or breast enlargement Musc Musculoskeletal: Yes arthritis; No back problems, rheumatoid arthritis, gout or joint pain Cardio Cardiovascular: No murmur, pacemaker, heart disease, atrial fibrillation, high blood pressure, heart attack, heart stent, palpitations, shortness of breat with exertion or chest pain Psych Psychiatric: No depression, anxiety or hearing voices Resp Respiratory: No shortness of breath, No sleep apnea, No cough, No COPD, No asthma, No emphysema and No wheezing Gastro Gastrointestinal: Yes abdominal pain, Yes nausea or vomiting, Yes diarrhea, No constipation, No blood in stool, Yes acid reflux, No hemorrhoids, No ulcers, No gallbladder problem and Yes black,tarry stools Jose Hematologic: No blood thinners, No blood disorders, No bleeding, No anemia and No blood clots Neuro Neurologic: No system reviewed and no additional complaints, except as documented, No as per HPI, No abnormal gait, No abnormal hearing, No abnormal movements, No abnormal speech, No behavioral changes, No burning sensations, No confusion, No convulsions, No disequilibrium, No dizziness, No localized weakness, No frequent falls, No headache(s), No lack of coordination, No loss of vision, No memory loss, No numbness, No other visual disturbances, No radicular pain, No restless legs, No sensory deficit, No syncope, No tingling, No tremor(s), No weakness and No other Exam Const General: cooperative Orientation: alert and oriented x3 HENMT Head: normal to inspection Neck Neck: normal visual inspection and full ROM Chest Chest palpation & inspection: normal inspection of the chest Resp Effort & Inspection: normal respiratory effort Auscultation: clear to auscultation bilaterally Cardio Rate: regular rate Rhythm: regular rhythm GI Inspection: non-distended Palpation: soft and nontender Skin General: no rashes or lesions noted Neuro General: patient alert and patient oriented x3 Extrem General: full ROM Psych Appearance: grossly normal Mental Status: mental status grossly normal Assessment and Plan Assessment and Plan (1) Diarrhea: Status: Acute (2) Belching: Status: Acute Orders: Orders CDIFF (PCR) 08/25/23 R19.7 - Diarrhea, unspecified Ova and Parasites 8623 08/25/23 R10.9 - Unspecified abdominal pain, R19.7 - Diarrhea, unspecified Colonoscopy Today EGD Today Plan The patient is having a lot of belching and diarrhea. I would like to switch her Pepcid over to a PPI and perform a double endoscopy to evaluate the esophagus and stomach as well as the colon. I have also checked a C. difficile, which came back negative. Plan for EGD and colonoscopy to evaluate. I explained endoscopy in detail to the patient. I explained the risks including but not limited to stroke or heart attack with anesthesia, perforation of the GI tract, bleeding, infection. I explained that any of these could necessitate further emergency surgery. The patient understands and all questions were answered sufficiently. The patient wishes to proceed with procedure. Eduardo Francis MD Pager: [facility] [address] [place] [address], [address] [place] [address] Office: I have examined the patient and the H&P has been reviewed. There are no clinical changes since date of exam.
--- NOTE | 2023-09-20 12:57 | PCM.POST.ANE ---
Anesthesia: Postop Eval I Current Vital Signs Temperature: 97.2 F Pulse Rate: 87 Blood Pressure: 222/82 Respiratory Rate: 18 Pulse Ox: 94 Oxygen Delivery Method: Room Air Assessment Airway patent: Yes Spontaneous unlabored respirations: Yes Mental status: Awake and Calm nausea: Yes Vomiting: No Anesthesia Complication: No Fluid Hydration Crystalloid volume administer (ml): 1,000 Total IV fluid infused: 1,000 Progress Note Anesthesia document: Postop Eval 1 completed: Yes
--- NOTE | 2023-09-20 13:01 | PN_ITS ---
Progress Note During the colonoscopy portion of her procedure I was unable to make it around the sigmoid colon and during manipulation we saw outside of the colon indicating that we perforated. The scope was quickly removed and the patient will be awoken and consented and discussed for surgery. I will discuss performing a sigmoid repair if possible if not I will do a sigmoid resection. I also discussed this with the patient's son as she has dementia. He will consent when he makes it and he is on his way. I discussed performing sigmoid colectomy if unable to repair the injury. I also discussed possibly performing a colostomy if necessary. Patient understands the risks and is willing to proceed. I discussed the risks of bleeding, infection, injury other organs, need for open surgery. Patient understands and is willing to proceed. Eduardo Francis MD Pager: [facility] [address] [place] [address], [address] [place] [address] Office:
[2023-09-20] MEDS: Piperacil/Tazobactam 3.375 GM in 0.9% Normal Saline (50mL MB+) 50 ML IV ×2 (14:06→20:40)
--- NOTE | 2023-09-20 14:10 | POSTOPAN2_ITS ---
Anesthesia Postop Eval I Sum Postop Eval Completion status Anesthesia document: Postop Eval 1 completed: Yes Anesthesia Postop Eval I Summary Anesthesia Postop Eval I Summary: Anesthesia Postop Eval I: Assessment Summary Airway patent Yes 09/20/23 12:58 POLITICAL [email or web address] Spontaneous unlabored Yes 09/20/23 12:58 POLITICAL [email or web address].SCHR respirations Mental status Awake,Calm 09/20/23 12:58 POLITICAL [email or web address].SCHR nausea Yes 09/20/23 12:58 POLITICAL ANTHROPOLOGIST.SCHR Vomiting No 09/20/23 12:58 POLITICAL [email or web address].SCHR Anesthesia Postop Eval I: Fluid Summary Crystalloid volume administer 1,000 09/20/23 12:58 POLITICAL [email or web address].SCHR (ml) Colloids volume administered ( ml) Blood Product volume administered (ml) Total IV fluid infused 1,000 09/20/23 12:58 POLITICAL [email or web address].SCHR Anesthesia Postop Eval I: Summary Notes Anesthesia Complication No 09/20/23 12:58 POLITICAL [email or web address].SCHR Anesthesia Complication Comment: Post-operative progress note Anesthesia: Postop Eval II Evaluation Mental status: Awake and Calm Pain Level: 2 nausea: No Vomiting: No Complications Anesthesia Complication: No
--- NOTE | 2023-09-20 14:10 | PCM.POSTANE2 ---
Anesthesia Postop Eval I Sum Postop Eval Completion status Anesthesia document: Postop Eval 1 completed: Yes Anesthesia Postop Eval I Summary Anesthesia Postop Eval I Summary: Anesthesia Postop Eval I: Assessment Summary Airway patent Yes 09/20/23 12:58 DATA GOVERNANCE ANALYST.[email or web address] Spontaneous unlabored Yes 09/20/23 12:58 DATA GOVERNANCE ANALYST.SCHR respirations Mental status Awake,Calm 09/20/23 12:58 DATA GOVERNANCE ANALYST.SCHR nausea Yes 09/20/23 12:58 DATA GOVERNANCE ANALYST.SCHR Vomiting No 09/20/23 12:58 DATA GOVERNANCE ANALYST.SCHR Anesthesia Postop Eval I: Fluid Summary Crystalloid volume administer 1,000 09/20/23 12:58 DATA GOVERNANCE ANALYST.SCHR (ml) Colloids volume administered ( ml) Blood Product volume administered (ml) Total IV fluid infused 1,000 09/20/23 12:58 DATA GOVERNANCE ANALYST.SCHR Anesthesia Postop Eval I: Summary Notes Anesthesia Complication No 09/20/23 12:58 DATA GOVERNANCE ANALYST.SCHR Anesthesia Complication Comment: Post-operative progress note Anesthesia: Postop Eval II Evaluation Mental status: Awake and Calm Pain Level: 2 nausea: No Vomiting: No Complications Anesthesia Complication: No
[2023-09-20] MEDS: Bupivacaine Mpf 0.5% 30 ML VIAL (15:08)
--- NOTE | 2023-09-20 15:29 | OP.PCM_ITS ---
Report of Operation Date of Procedure: 09/20/23
--- NOTE | 2023-09-20 15:29 | PCM.OPRPT ---
Report of Operation Date of Procedure: 09/20/23 Pre-Operative Diagnosis: Iatrogenic colon injury Post-Operative Diagnosis: Iatrogenic sigmoid colon perforation Surgery/Procedure Performed:: Laparoscopic repair of sigmoid colon Type of Anesthesia: General/Regional Drains: PHANI to bulb suction Estimated Blood Loss (mL): 10 Description of Procedure: Patient brought back to the operating room and general anesthesia was induced. A Ybarra catheter was placed. The abdomen was prepped and draped in the usual sterile fashion as well as perineum. Next a small incision was made superior to the umbilicus and deepened to the fascia which was elevated and incised. Port was placed into the abdomen and insufflated to 15 mm mercury. Patient was placed in steep Trendelenburg position. Under direct visualization a 5 mm port was placed in the left upper quadrant as well as in the right lower quadrant and right upper quadrant. She had a lot of adhesions to the anterior abdominal wall from the omentum precluding view. These were taken down using Enseal. After there was a clear view of the sigmoid colon was inspected. There was an area of pneumatosis in an easily accessible antimesenteric part of the sigmoid colon. The peritoneum was stripped of this area and the perforation was identified. It was small. It was repaired with several interrupted 2-0 silk suture. The completely reapproximated and then it was imbricated with another suture. Next a leak test was performed. A rigid sigmoidoscope was placed into the well-lubricated anus the proximal sigmoid was pinched and there was no air leak. The abdomen was suctioned dry. A 15 Burundian round drain was placed through the lateral right lower quadrant port and into the pelvis sutured in place using 3-0 nylon suture. Next the midline fascia was closed with a [id number] 0 Vicryl suture. All of the incisions were injected with local anesthetic and closed with interrupted 4-0 Monocryl sutures. Steri-Strips and bandages were applied. We left the Ybarra and brought the patient to PACU in stable condition. Admit VTE Documentation VTE Mechan Device Prophylaxis: SCD's
--- NOTE | 2023-09-20 15:32 | OP.CCLET_ITS ---
09/20/2023 Manuel Zhao MD [address] [place] [address] Re : Upper GI endoscopy procedure for Cordelia Olivier Dear Dr. Zhao This procedure was performed on Wednesday, September 20, 2023. My impressions and recommendations are as follows: Impressions : - Normal esophagus. - Normal examined duodenum. - Large hiatal hernia. - No specimens collected. Recommendations : - Discharge patient to home. - Resume previous diet. - Continue present medications. My findings are described in the full procedure note, which is enclosed. If I can be of further assistance, please feel free to contact me at Doctor phone number(s): , Work: . Sincerely, Eduardo Francis MD 09/20/2023 3:31:40 PM This report has been signed electronically.
--- NOTE | 2023-09-20 15:32 | OP.EGD_ITS ---
Patient Name: Cordelia Olivier Procedure Date: 09/20/2023 12:24 PM Date of : 1940 Age: 83 Procedure: Upper GI endoscopy Indications: Gastro-esophageal reflux disease Providers: Eduardo Francis MD Referring MD: Eduardo Francis MD Medicines: Propofol per Anesthesia Patient Profile: This is an 83 year old female. Refer to note in patient chart for documentation of history and physical. Complications: No immediate complications. Estimated blood loss: Minimal. Procedure: Pre-Anesthesia Assessment: - Prior to the procedure, a History and Physical was performed, and patient medications and allergies were reviewed. The patient's tolerance of previous anesthesia was also reviewed. The risks and benefits of the procedure and the sedation options and risks were discussed with the patient. All questions were answered, and informed consent was obtained. Prior Anticoagulants: The patient has taken no anticoagulant or antiplatelet agents. After reviewing the risks and benefits, the patient was deemed in satisfactory condition to undergo the procedure. After obtaining informed consent, the endoscope was passed under direct vision. Throughout the procedure, the patient's blood pressure, pulse, and oxygen saturations were monitored continuously. The Endoscope was introduced through the mouth, and advanced to the second part of duodenum. The upper GI endoscopy was accomplished without difficulty. The patient tolerated the procedure well. Scope In: 12:41:11 PM Scope Out: 12:43:45 PM Total Procedure Duration Time 0 hours 2 minutes 34 seconds Findings: The esophagus was normal. The examined duodenum was normal. A large hiatal hernia was present. Impression: - Normal esophagus. - Normal examined duodenum. - Large hiatal hernia. - No specimens collected. Recommendation: - Discharge patient to home. - Resume previous diet. - Continue present medications. Procedure Code(s): --- Professional --- 47488, Esophagogastroduodenoscopy, flexible, transoral; diagnostic, including collection of specimen(s) by brushing or washing, when performed (separate procedure) Diagnosis Code(s): --- Professional --- K44.9, Diaphragmatic hernia without obstruction or gangrene K21.9, Gastro-esophageal reflux disease without esophagitis CPT copyright 2021 [employer]. All rights reserved. The codes documented in this report are preliminary and upon sample cutter review may be revised to meet current compliance requirements. Eduardo Francis MD 09/20/2023 3:31:40 PM This report has been signed electronically. Number of Addenda: 0 Note Initiated On: 09/20/2023 12:24 PM
--- NOTE | 2023-09-20 16:31 | PCM.POST.ANE ---
Anesthesia: Postop Eval I Current Vital Signs Temperature: 97.9 F Pulse Rate: 81 Blood Pressure: 164/73 Respiratory Rate: 14 Pulse Ox: 96 Oxygen Delivery Method: Nasal Cannula Oxygen Flow Rate (L/min): 4 Assessment Airway patent: Yes Spontaneous unlabored respirations: Yes Mental status: Awake and Calm nausea: No Vomiting: No Anesthesia Complication: No Fluid Hydration Crystalloid volume administer (ml): 2,400 Total IV fluid infused: 2,400 Progress Note Anesthesia document: Postop Eval 1 completed: Yes
[2023-09-20] MEDS: 0.9% Normal Saline (1000mL) 1,000 ML 100 ML IV (18:17)
[2023-09-20] MEDS: Ketorolac 15 MG/ML Vial IV (18:17)
[2023-09-20] MEDS: 0.9% Saline Lock 10 ML Syringe IV (18:17)
[2023-09-20] MEDS: Donepezil HCl 5 MG Tablet PO (20:39)
[2023-09-20] MEDS: Acetaminophen 325 MG Tablet PO (20:39)
[2023-09-21] VITALS (7 sets, daily range): BP systolic 137–159; BP diastolic 51–76; PULSE 62–84; RESP 16–18; TEMP 36.6–36.8; O2SAT 92–96
[2023-09-21] MEDS: Menthol/Lanolin/Calamine/Znox 113 GM Tube 1 APPLIC TOPICAL ×3 (00:49→20:12)
[2023-09-21] MEDS: Piperacil/Tazobactam 3.375 GM in 0.9% Normal Saline (50mL MB+) 50 ML IV ×3 (05:06→20:13)
[2023-09-21] MEDS: 0.9% Saline Lock 10 ML Syringe IV ×2 (05:06→20:25)
[2023-09-21] MEDS: Acetaminophen 325 MG Tablet PO ×3 (05:06→17:11)
[2023-09-21] MEDS: Ketorolac 15 MG/ML Vial IV ×2 (05:06→20:25)
[2023-09-21] MEDS: 0.9% Normal Saline (1000mL) 1,000 ML 100 ML IV (05:07)
[2023-09-21] MEDS: 0.9% Normal Saline (250mL Bag) 250 ML 15 ML IV (05:07)
[2023-09-21 06:53] LABS: Absolute Lymphocyte Count 1.41 X10^3/uL (0.83-4.51); Absolute Neutrophil Count 13.6 X10^3/uL (2.0-7.7); Basophil# 0.05 X10^3/uL; Basophil% 0.3 % (0-1); Eosinophil# 0.01 X10^3/uL; Eosinophils% 0.1 % (0-5); Hematocrit 30.2 % (37-47); Lymphocyte # 1.41 X10^3/ul (0.83-4.51); Lymphocyte % 8.8 % (19-41); Mean Corp Hgb Conc 29.8 g/dL (32-36); Mean Corpuscular Hgb 24.1 pg (27.0-32.0); Mean Platelet Vol. 9.9 fl (6.2-12.0); Monocyte# 0.86 X10^3/uL; Monocyte% 5.3 % (0-10); NRBC Flagged by Analyzer 0 % (0-5); Neutrophil # 13.62 X10^3/uL (2.7-7.7); Neutrophil % 84.5 % (47-70); Platelet Count 237 K/mm3 (150-450); RBC Distribution Width CV 15.7 % (11.6-14.6); RBC Distribution Width SD 45.9 fl (35.1-43.9); Red Blood Count 3.73 M/mm3 (4.2-5.4); White Blood Count 16.1 K/mm3 (4.4-11.0)
[2023-09-21 07:09] LABS: Anion Gap 5 (5-15); BUN 14 mg/dL (7-18); BUN/Creat Ratio 13.9 RATIO (10-20); Calcium,Total 8.5 mg/dL (8.5-10.1); Chloride 109 mmol/L (98-107); Creatinine, Serum 1.01 mg/dL (0.55-1.02); EST Glomerular Filtration Rate 55 mL/min (>60); Est Glom Filt Rate - Afr Amer 67 mL/min (>60); Estimated Creatinine Clearance 45.31 ml/min; Glucose 141 mg/dL (74-106); Potassium 3.3 mmol/L (3.5-5.1); Sodium Level 141 mmol/L (136-145)
[2023-09-21] MEDS: Potassium Chloride 10mEq/100mL 10 MEQ/100 ML IV.SOLN. 100 MEQ IV BOLUS ×2 (08:15→09:20)
--- NOTE | 2023-09-21 09:27 | CASEMGMT ---
Social Work Pt is here from [facility]. SW spoke w/pt in regard to discharge plan. Pt confirms will return to [facility]. She states she has been there for 6 months, and she does like it there. Pt states that her children Gem and Migue are both her healthcare POAs. SW did let her know that we do not have the POA/LW papers on the chart. SW explained will ask [facility] to send them over, she states that they should have them on file. SW will continue to follow. D/C senior planning analyst Josette will send over updates. BERNICE Villalpando
--- NOTE | 2023-09-21 09:41 | CASEMGMT ---
Discharge Planning Updates sent to [facility] via [facility]. Josette Azevedo DC Planning Asst.
[2023-09-21] MEDS: Docusate Sodium 100 MG Capsule PO ×2 (11:39→20:12)
[2023-09-21] MEDS: amLODIPine 5 MG Tablet PO (11:39)
[2023-09-21] MEDS: Pantoprazole Sodium 40 MG Tablet PO (11:39)
[2023-09-21] MEDS: Mirtazapine 15 MG Tablet PO (11:43)
--- NOTE | 2023-09-21 11:52 | NURSING ---
assisted pt w/ ordering clear liquid diet
--- NOTE | 2023-09-21 12:02 | CASEMGMT ---
Addendum entered by Shara Nielson 09/21/23 14:53: Social Work Josette d/c golf player assistant, did send over PT/OT to [facility]. Based on these evaluations it does appear pt will be able to return to [place]. SW will continue to follow. BERNICE Villalpando Original Note: Social Work TOY did send a message in [facility] asking [facility] to fax over LW/POA documents. ANDIE VillalpandoS
--- NOTE | 2023-09-21 14:51 | CASEMGMT ---
Discharge Planning Therapy evals sent to [place] [facility] via [facility]. Karol is comfortable with patient returning to her [facility] suite. Josette Azevedo DC Planning Asst.
[2023-09-21] MEDS: Propranolol LA 60 MG Capsule PO (17:10)
[2023-09-21] MEDS: 0.9% Normal Saline (1000mL) 1,000 ML 40 ML IV (20:11)
[2023-09-21] MEDS: Donepezil HCl 5 MG Tablet PO (20:12)
[2023-09-22] VITALS (8 sets, daily range): BP systolic 158–184; BP diastolic 49–78; PULSE 66–82; RESP 16–18; TEMP 36.5–36.7; O2SAT 94–97
[2023-09-22] MEDS: Acetaminophen 325 MG Tablet PO ×2 (04:06→21:56)
[2023-09-22] MEDS: Piperacil/Tazobactam 3.375 GM in 0.9% Normal Saline (50mL MB+) 50 ML IV ×3 (05:38→21:47)
--- NOTE | 2023-09-22 06:34 | PCM.PN.SRG ---
Subjective Subjective Patient seen and examined during AM rounds. She is found resting comfortably in bed. She states that she is doing well. She describes only fleeting sharp discomfort in her left lower quadrant. She states that she has been up and about her room. She denies any difficulty with her clear liquid diet yesterday. She continues to have loose bowel movements and shares that she will have a bowel movement without hardly even knowing it. Objective Data Objective Data Vital Signs: Vital Signs Temp Pulse Resp BP Pulse Ox O2 Del Method O2 Flow Rate 98.1 F 73 18 158/72 H 94 Nasal Cannula 2 09/22/23 04:00 09/22/23 04:00 09/22/23 04:00 09/22/23 04:00 09/22/23 04:00 09/22/23 04:00 09/22/23 04:00 Oxygen Flow Rate (L/min) 2 Oxygen Delivery Method Nasal Cannula Weight: 193 lb Body Mass Index (BMI) 32.1 Intake & Output: Intake and Output for Last 24 Hours 09/20/23 09/21/23 09/22/23 23:59 23:59 23:59 Intake Total 2177.5 / 2177.5 3805 / 3805 50 / 50 Output Total 880 / 880 380 / 380 30 / 30 Balance 1297.5 / 1297.5 3425 / 3425 20 / 20 Lab / Micro Data 09/22/23 06:14 09/22/23 06:14 Labs: Laboratory Results - last 24 hr 09/21/23 06:08: WBC 16.1 H, RBC 3.73 L, Hgb 9.0 L, Hct 30.2 L, MCV 81.0, MCH 24.1 L, MCHC 29.8 L, RDW Std Deviation 45.9 H, RDW Coeff of Berry 15.7 H, Plt Count 237, MPV 9.9, Immature Gran % (Auto) 1.000 H, Neut % (Auto) 84.5 H, Lymph % (Auto) 8.8 L, [place] % (Auto) 5.3, Eos % (Auto) 0.1, Baso % (Auto) 0.3, Absolute Neuts (auto) 13.6 H, Absolute Lymphs (auto) 1.41, Nucleated RBC % 0, Sodium 141, Potassium 3.3 L, Chloride 109 H, Carbon Dioxide 27.0, Anion Gap 5, BUN 14, Creatinine 1.01, Estim Creat Clear Calc 45.31, Est GFR (MDRD) Af Amer 67, Est GFR (MDRD) Non-Af 55 L, BUN/Creatinine Ratio 13.9, Glucose 141 H, Calcium 8.5 Physical Exam Const oriented x3 and no apparent distress Resp normal respiratory effort GI GI Narrative: Nondistended, operative dressings intact, right lower quadrant drain with serosanguineous output and some clotting in the tubing. Mild tenderness to palpation of the deep left lower quadrant. Assessment & Plan Assessment/Plan (1) Perforation of colon as colonoscopy complication: PLAN: Patient is postoperative day 2 from laparoscopic exploration and primary repair of the iatrogenic colon perforation with colonoscopy. She reports that she is overall doing well. Her belly exam is largely as expected with just some minor tenderness of the left lower quadrant with deeper palpation. She describes numerous liquid bowel movements and incontinence of stool. This appears to be leading to a hypokalemic state. Will plan to replete potassium today and advance to a full liquid diet. If she tolerates this would continue for lunch and then advance further for dinner. Will continue to monitor her labs for electrolyte repletion as well as her CBC. Patient is encouraged to ambulate more frequently. Javier Clement MD General Surgery Endocrine Surgery Pager: [facility] [address] [place] [address], [address] [place] [address] Office: [phone] Charges/Coding Visit Charges Inpatient E&M: 54813 Init Hosp L2
[2023-09-22 07:33] LABS: Absolute Lymphocyte Count 2.17 X10^3/uL (0.83-4.51); Absolute Neutrophil Count 6.3 X10^3/uL (2.0-7.7); Basophil# 0.05 X10^3/uL; Basophil% 0.5 % (0-1); Eosinophil# 0.12 X10^3/uL; Eosinophils% 1.2 % (0-5); Hematocrit 28.1 % (37-47); Hemoglobin 8.1 g/dL (12.0-15.0); Lymphocyte # 2.17 X10^3/ul (0.83-4.51); Lymphocyte % 22.5 % (19-41); Mean Corp Hgb Conc 28.8 g/dL (32-36); Mean Corpuscular Hgb 23.6 pg (27.0-32.0); Mean Corpuscular Volume 81.9 fL (81-99); Mean Platelet Vol. 10.2 fl (6.2-12.0); Monocyte# 0.95 X10^3/uL; Monocyte% 9.9 % (0-10); NRBC Flagged by Analyzer 0 % (0-5); Neutrophil % 65.4 % (47-70); Platelet Count 240 K/mm3 (150-450); RBC Distribution Width CV 15.9 % (11.6-14.6); RBC Distribution Width SD 47.7 fl (35.1-43.9); Red Blood Count 3.43 M/mm3 (4.2-5.4); White Blood Count 9.6 K/mm3 (4.4-11.0)
[2023-09-22 08:13] LABS: Anion Gap 5 (5-15); BUN 15 mg/dL (7-18); Chloride 113 mmol/L (98-107); Creatinine, Serum 0.88 mg/dL (0.55-1.02); EST Glomerular Filtration Rate 65 mL/min (>60); Est Glom Filt Rate - Afr Amer 78 mL/min (>60); Glucose 99 mg/dL (74-106); Potassium 2.9 mmol/L (3.5-5.1); Sodium Level 145 mmol/L (136-145)
[2023-09-22] MEDS: amLODIPine 5 MG Tablet PO (09:09)
[2023-09-22] MEDS: Mirtazapine 15 MG Tablet PO (09:09)
[2023-09-22] MEDS: Potassium Chloride Oral Tablet 20 MEQ 60 MEQ PO (09:09)
[2023-09-22] MEDS: Pantoprazole Sodium 40 MG Tablet PO (09:10)
[2023-09-22] MEDS: Menthol/Lanolin/Calamine/Znox 113 GM Tube 1 APPLIC TOPICAL ×2 (09:10→21:48)
[2023-09-22] MEDS: cloNIDine HCl 0.1 MG Tablet PO (09:12)
[2023-09-22] MEDS: 0.9% Saline Lock 10 ML Syringe IV ×2 (09:18→21:57)
[2023-09-22] MEDS: Ketorolac 15 MG/ML Vial IV (09:18)
[2023-09-22] MEDS: hydrALAZINE 20 MG/ML Vial 10 MG IV ×2 (11:53→21:56)
[2023-09-22] MEDS: Propranolol LA 60 MG Capsule PO (11:54)
[2023-09-22] MEDS: 0.9% Normal Saline (250mL Bag) 250 ML 15 ML IV (13:56)
[2023-09-22] MEDS: 0.9% Normal Saline (1000mL) 1,000 ML 40 ML IV (21:47)
[2023-09-22] MEDS: Donepezil HCl 5 MG Tablet PO (21:57)
[2023-09-23] VITALS (10 sets, daily range): BP systolic 154–185; BP diastolic 59–78; PULSE 75–86; RESP 16–18; TEMP 36.6–36.9; O2SAT 87–96
[2023-09-23] MEDS: Piperacil/Tazobactam 3.375 GM in 0.9% Normal Saline (50mL MB+) 50 ML IV ×2 (05:48→16:41)
[2023-09-23] MEDS: cloNIDine HCl 0.1 MG Tablet PO (05:50)
[2023-09-23 06:07] LABS: Absolute Lymphocyte Count 1.47 X10^3/uL (0.83-4.51); Absolute Neutrophil Count 6.3 X10^3/uL (2.0-7.7); Basophil# 0.05 X10^3/uL; Basophil% 0.6 % (0-1); Eosinophils% 2.2 % (0-5); Hematocrit 32.5 % (37-47); Hemoglobin 9.6 g/dL (12.0-15.0); Lymphocyte # 1.47 X10^3/ul (0.83-4.51); Lymphocyte % 16.4 % (19-41); Mean Corp Hgb Conc 29.5 g/dL (32-36); Mean Corpuscular Hgb 24.1 pg (27.0-32.0); Mean Corpuscular Volume 81.5 fL (81-99); Mean Platelet Vol. 9.5 fl (6.2-12.0); Monocyte# 0.94 X10^3/uL; Monocyte% 10.5 % (0-10); NRBC Flagged by Analyzer 0 % (0-5); Neutrophil # 6.26 X10^3/uL (2.7-7.7); Platelet Count 248 K/mm3 (150-450); RBC Distribution Width CV 15.9 % (11.6-14.6); RBC Distribution Width SD 47.3 fl (35.1-43.9); Red Blood Count 3.99 M/mm3 (4.2-5.4)
[2023-09-23 06:29] LABS: Anion Gap 3 (5-15); BUN 8 mg/dL (7-18); BUN/Creat Ratio 11.2 RATIO (10-20); Calcium,Total 8.2 mg/dL (8.5-10.1); Chloride 115 mmol/L (98-107); Creatinine, Serum 0.71 mg/dL (0.55-1.02); EST Glomerular Filtration Rate 83 mL/min (>60); Est Glom Filt Rate - Afr Amer 100 mL/min (>60); Glucose 111 mg/dL (74-106); Magnesium 1.8 mg/dL (1.6-2.6); Phosphorus 2.2 mg/dL (2.5-4.9); Sodium Level 145 mmol/L (136-145)
--- NOTE | 2023-09-23 07:22 | PN.SURG_ITS ---
Subjective Subjective Patient seen and examined during AM rounds. She is found resting in bed, however, she complains that she has some wheezing and shortness of breath this morning. She shares that she tolerated her advance to a transitional diet without difficulty and the food agreeable. She continues to demonstrate bowel function. Objective Data Objective Data Vital Signs: Vital Signs Temp Pulse Resp BP Pulse Ox O2 Del Method O2 Flow Rate 97.8 F 80 18 185/78 H 94 Nasal Cannula 2 09/23/23 05:00 09/23/23 05:00 09/23/23 05:00 09/23/23 05:00 09/23/23 05:00 09/23/23 05:00 09/23/23 05:00 Oxygen Flow Rate (L/min) 2 Oxygen Delivery Method Nasal Cannula Weight: 193 lb Body Mass Index (BMI) 32.1 Intake & Output: Intake and Output for Last 24 Hours 09/21/23 09/22/23 09/23/23 23:59 23:59 23:59 Intake Total 3805 / 3805 2467.75 / 2467.75 50 / 50 Output Total 380 / 380 80 / 80 40 / 40 Balance 3425 / 3425 2387.75 / 2387.75 Lab / Micro Data 09/23/23 05:55 09/23/23 14:13 Labs: Laboratory Results - last 24 hr 09/22/23 06:14: WBC 9.6, RBC 3.43 L, Hgb 8.1 L, Hct 28.1 L, MCV 81.9, MCH 23.6 L , MCHC 28.8 L, RDW Std Deviation 47.7 H, RDW Coeff of Berry 15.9 H, Plt Count 240, MPV 10.2, Immature Gran % (Auto) 0.500, Neut % (Auto) 65.4, Lymph % (Auto) 22.5, [place] % (Auto) 9.9, Eos % (Auto) 1.2, Baso % (Auto) 0.5, Absolute Neuts (auto) 6.3, Absolute Lymphs (auto) 2.17, Nucleated RBC % 0, Sodium 145, Potassium 2.9 L , Chloride 113 H, Carbon Dioxide 27.0, Anion Gap 5, BUN 15, Creatinine 0.88, Estim Creat Clear Calc 52.00, Est GFR (MDRD) Af Amer 78, Est GFR (MDRD) Non-Af 65, BUN/Creatinine Ratio 17.0, Glucose 99, Calcium 8.0 L 09/23/23 05:55: WBC 9.0, RBC 3.99 L, Hgb 9.6 L, Hct 32.5 L, MCV 81.5, MCH 24.1 L , MCHC 29.5 L, RDW Std Deviation 47.3 H, RDW Coeff of Berry 15.9 H, Plt Count 248, MPV 9.5, Immature Gran % (Auto) 0.300, Neut % (Auto) 70.0, Lymph % (Auto) 16.4 L , [place] % (Auto) 10.5 H, Eos % (Auto) 2.2, Baso % (Auto) 0.6, Absolute Neuts (auto) 6.3, Absolute Lymphs (auto) 1.47, Nucleated RBC % 0, Sodium 145, P otassium 3.0 L, Chloride 115 H, Carbon Dioxide 27.0, Anion Gap 3 L, BUN 8, Creatinine 0.71, Estim Creat Clear Calc 57.20, Est GFR (MDRD) Af Amer 100, Est GFR (MDRD) Non-Af 83, BUN/Creatinine Ratio 11.2, Glucose 111 H, Calcium 8.2 L, P hosphorus 2.2 L, Magnesium 1.8 Physical Exam Const oriented x3 Constitutional Narrative: Patient describes some shortness of breath Resp Resp Narrative: Mildly tachypneic GI GI Narrative: Soft, nondistended, nontender to palpation x 4 quadrants. Right lower quadrant drain site with serosanguineous output Assessment & Plan Assessment/Plan (1) Perforation of colon as colonoscopy complication: PLAN: Patient is postoperative day 3 from laparoscopic exploration and primary repair of the iatrogenic colon perforation with colonoscopy. She reports that she is overall doing well, however, this morning she appears dyspneic and is requiring some oxygen. A BNP was checked alongside of a chest x-ray and both are consistent with volume overload. Thus patient was prescribed 1 dose of IV Lasix and had a favorable response both in terms of urine output as well as her oxygen saturation. Her belly exam is largely as expected with just some minor tenderness of the left lower quadrant with deeper palpation. With her normal white count her antibiotics were discontinued and her drain was removed. She describes improvements in her diarrhea. We have continuing potassium needs as a consequence of patient's diarrhea and will likely have additional needs as a consequence of her required diuresis. Will plan to replete potassium and magnesium today as well as continuing transitional diet. Provided patient's electrolytes are within normal limits or rather easily corrected she should be medically optimized for discharge to home tomorrow. A basic metabolic panel is pending for the a.m. Dr. Dougherty will be covering for the weekend. Javier Clement MD General Surgery Endocrine Surgery Pager: [facility] [address] [place] [address], [address] [place] [address] Office: [phone] Charges/Coding Visit Charges Inpatient E&M: 71583 [facility] Hosp L2
--- NOTE | 2023-09-23 07:26 | RAD_ITS ---
STUDY: X-RAY CHEST REASON FOR EXAM: Female, 83 years old. New wheezing/sob TECHNIQUE: Single AP portable view of the chest. COMPARISON: Comparison is made with prior study dated April 29, 2023. FINDINGS: Mild degree of vascular congestion. Increased bilateral perihilar markings suggestive of either parahilar bronchitis versus patchy bilateral perihilar infiltrates worse on the left side. There is no demonstrated pleural abnormality. There is borderline cardiomegaly. Normal mediastinum and doug. Normal visualized pulmonary arteries. Normal visualized aortic arch and descending thoracic aorta. Normal visualized thoracic spine. There is degenerative osteoarthritis of the bilateral shoulders. There is no demonstrated abnormality of the visualized soft tissue structures of the upper abdomen. RAD/Chest 1 View (Portable) IMPRESSION: Mild degree of the vascular congestion with increased markings and areas of confluence in both parahilar regions worse at the left lung base. Electronically Signed: Brian Vieyra MD at 13:37 EDT ,
[2023-09-23] MEDS: Potassium Chloride Oral Tablet 20 MEQ 40 MEQ PO ×2 (08:42→16:43)
[2023-09-23] MEDS: Menthol/Lanolin/Calamine/Znox 113 GM Tube 1 APPLIC TOPICAL ×2 (08:42→20:56)
[2023-09-23] MEDS: Magnesium Sulfate 2 GM in Dextrose 5%-Water (100mL Bag) 100 ML IV (08:42)
[2023-09-23] MEDS: Docusate Sodium 100 MG Capsule PO (08:43)
[2023-09-23] MEDS: Propranolol LA 60 MG Capsule PO (08:43)
[2023-09-23] MEDS: Pantoprazole Sodium 40 MG Tablet PO (08:44)
[2023-09-23] MEDS: Mirtazapine 15 MG Tablet PO (08:44)
[2023-09-23] MEDS: amLODIPine 5 MG Tablet PO (08:44)
--- NOTE | 2023-09-23 09:24 | NURSING ---
Pt spo2 93-94% sitting in chair resting. Pt had to void and have a BM. Pt became SOB and wheezy after walking back from bathroom and spo2 was checked at 87% on RA. Sat in chair, this RN applied o2 at 2L NC and spo2 then came back up to 96%. Will monitor. No distress at this time.
[2023-09-23 10:03] LABS: BNP,B-Type NATRIURETIC PEPTIDE 688.9 pg/mL (0-100)
--- NOTE | 2023-09-23 11:01 | CASEMGMT ---
Discharge Planning Patient is not on O2 at [facility]. [facility] asked for hospital to set up if needed at discharge. RN CM updated. Josette Azevedo DC Planning Asst.
[2023-09-23] MEDS: Furosemide 20 MG/2 ML VIAL IV (11:30)
[2023-09-23] MEDS: Potassium Phosphate 15 MM in 0.9% Normal Saline (250mL Bag) 250 ML 125 MM IV (11:30)
[2023-09-23] MEDS: 0.9% Saline Lock 10 ML Syringe IV (11:31)
[2023-09-23 14:48] LABS: Potassium 3.3 mmol/L (3.5-5.1)
--- NOTE | 2023-09-23 15:13 | CASEMGMT ---
Social Work- SW met with pt who states that son, David, will transport pt if she is d/c prior to him leaving for [place] Tuesday. Pt reports that she is feeling well and feels ready to return to [facility]. SW passed information on to RNCM for green sheet. JHONATAN Rosales
--- NOTE | 2023-09-23 15:38 | NURSING ---
IV site went bad, this RN and Gallo RN attempted to restart Iv x1 each and Adela RN attempted x2. Josselyn vehicle fare collector aware and will come to restart.
[2023-09-23] MEDS: 0.9% Normal Saline (250mL Bag) 250 ML 15 ML IV (16:44)
[2023-09-23] MEDS: DiphenhydrAMINE 25 MG Capsule PO (20:55)
[2023-09-23] MEDS: Donepezil HCl 5 MG Tablet PO (20:55)
[2023-09-24] VITALS (7 sets, daily range): BP systolic 150–201; BP diastolic 71–90; PULSE 80–87; RESP 17–18; TEMP 36.9; O2SAT 88–95
[2023-09-24] MEDS: cloNIDine HCl 0.1 MG Tablet PO ×2 (02:56→09:05)
[2023-09-24 06:33] LABS: Anion Gap 4 (5-15); BUN 10 mg/dL (7-18); BUN/Creat Ratio 15.8 RATIO (10-20); Calcium,Total 8.2 mg/dL (8.5-10.1); Chloride 113 mmol/L (98-107); Creatinine, Serum 0.63 mg/dL (0.55-1.02); EST Glomerular Filtration Rate 95 mL/min (>60); Est Glom Filt Rate - Afr Amer 115 mL/min (>60); Glucose 105 mg/dL (74-106); Magnesium 1.9 mg/dL (1.6-2.6); Phosphorus 2.6 mg/dL (2.5-4.9); Potassium 3.2 mmol/L (3.5-5.1); Sodium Level 143 mmol/L (136-145)
[2023-09-24] MEDS: Furosemide 20 MG/2 ML VIAL IV (06:55)
--- NOTE | 2023-09-24 08:37 | PN.SURG_ITS ---
Subjective Subjective Patient is tolerating diet, PHANI removed yesterday, still having diarrhea which she had prior to having a colonoscopy, patient is currently on 2 L we will give her 1 more dose of Lasix 20 mg IV Objective Data Objective Data Vital Signs: Vital Signs Temp Pulse Resp BP Pulse Ox O2 Del Method O2 Flow Rate 98.4 F 86 18 160/71 H 95 Nasal Cannula 2 09/24/23 06:27 09/24/23 06:27 09/24/23 06:27 09/24/23 06:27 09/24/23 07:40 09/24/23 07:40 09/24/23 07:40 Oxygen Flow Rate (L/min) 2 Oxygen Delivery Method Nasal Cannula Weight: 193 lb Body Mass Index (BMI) 32.1 Intake & Output: Intake and Output for Last 24 Hours 09/22/23 09/23/23 09/24/23 23:59 23:59 23:59 Intake Total 2467.75 / 2467.75 1910.75 / 1910.75 699.58 / 699.58 Output Total 80 / 80 135 / 135 Balance 2387.75 / 2387.75 1775.75 / 1775.75 699.58 / 699.58 Lab / Micro Data 09/23/23 05:55 09/24/23 05:17 Labs: Laboratory Results - last 24 hr 09/23/23 05:55: B-Natriuretic Peptide 688.9 H 09/23/23 14:13: Potassium 3.3 L 09/24/23 05:17: Sodium 143, Potassium 3.2 L, Chloride 113 H, Carbon Dioxide 26.0, Anion Gap 4 L, BUN 10, Creatinine 0.63, Estim Creat Clear Calc 57.20, Est GFR (MDRD) Af Amer 115, Est GFR (MDRD) Non-Af 95, BUN/Creatinine Ratio 15.8, Glucose 105, Calcium 8.2 L, Phosphorus 2.6, Magnesium 1.9 Micro: Microbiology 09/22/23 17:59 Stool C. difficile GDH Antigen & Toxins - Final 09/22/23 17:59 Stool Clostridioides difficile (PCR) - Final Radiography Diagnostic Testing: Radiology Impression Chest X-Ray 09/23/23 07:26 IMPRESSION: Mild degree of the vascular congestion with increased markings and areas of confluence in both parahilar regions worse at the left lung base. Electronically Signed: Brian Vieyra MD at 13:37 EDT , Physical Exam Const oriented x3 and no apparent distress Resp Resp Narrative: On 2 L nasal oxygen Assessment & Plan Assessment/Plan (1) Perforation of colon as colonoscopy complication: PLAN: Patient is postoperative day 4 from laparoscopic exploration and primary repair of the iatrogenic colon perforation with colonoscopy. Patient IV fluids were stopped as she is tolerating a diet. Will give patient 1 more dose of Lasix 20 IV x 1. Hypokalemia will replace and give additional p.o. due to also giving Lasix. Will plan to recheck at 1 PM and likely discharge home with some KCl as well. Patient denies pain. Lea Dougherty M.D. Pager: [phone] [facility] [address] [place] [address], [facility], [address] [place] [address] Office: [phone]
--- NOTE | 2023-09-24 08:40 | DCINST_ITS ---
Discharge Instructions Diet Discharge Diet: - (transitional) Activity Discharge Activity: May Not Drive (while taking narcotic pain medications.) May shower in (days): 1 Lifting Restrictions: no lifting >20 lbs x 2 wks, no strenuous exercise for 4 wks Dressing / Incision Call your doctor if your incision/area has: Continuous Slow Oozing, Sudden Increased Bleeding, Increased Pain/ Swelling, Increased Redness, Foul Smelling Discharge and Swelling at the incision site Call your doctor if you observe: Fever of 101 or Higher Remove Dressing in: 1 day (change PHANI site daily if still having drainage) Cleanse incision/area with: Soap & Water Additional Dressing/Incision Instructions:: Steri-Strips will fall off in 7 to 10 days, if they do not fall off okay to remove after 10 days. Follow Up Care Please Follow Up With: Eduardo Francis MD When: Call the office for a follow-up appointment 1 week; after 5 PM and on the weekends call [phone] with any concerns. Test Results: Test results from this visit will be discussed in further detail at your follow- up appointment, if applicable. Discharge Plan Admission Admit Date/Time: 09/20/23 15:38 Attending Provider: Eduardo Francis Primary Care Provider: Manuel Zhao Discharge Orders/Prescriptions Prescriptions: New potassium chloride 20 mEq tablet extended release 20 meq PO DAILY Qty: 7 0RF Continued donepezil 5 mg tablet,disintegrating 5 mg PO QHS mirtazapine 15 mg tablet 15 mg PO DAILY acetaminophen 325 mg capsule 325 mg PO Q4H PRN (Reason: fever or pain) amlodipine 5 mg tablet 5 mg PO DAILY bisacodyl 10 mg suppository 10 mg PA DAILY PRN (Reason: constipation) clonidine HCl 0.1 mg tablet 0.1 mg PO Q2H PRN (Reason: hypertensive emergency) Patient Comments: SBP>180 AND OR DBP>100 famotidine 40 mg tablet 40 mg PO DAILY loperamide [Anti-Diarrheal (loperamide)] 2 mg capsule 2 mg PO Q4H PRN (Reason: loose stool) Rx Instructions: administer after each loose stool until symptoms controlled; do not exceed 8 mg per 24 hrs magnesium hydroxide [Milk of Magnesia] 400 mg/5 mL suspension 30 ml PO Q24H PRN (Reason: constipation) polysaccharide iron complex 150 mg iron capsule 150 mg PO DAILY PreserVision AREDS 4,296 mcg-226 mg-90 mg capsule 1 cap PO BID propranolol 60 mg capsule,extended release 24 hr 60 mg PO DAILY tramadol 100 mg tablet 100 mg PO Q6H PRN (Reason: pain) cyanocobalamin (vitamin B-12) 1,000 mcg capsule 1,000 mcg PO DAILY omeprazole 40 mg capsule,delayed release(DR/EC) 40 mg PO DAILY Qty: 60 1RF Held sennosides [Evac-U-Gen (sennosides)] 8.6 mg tablet 17.2 mg PO BID Hold Instructions: if having diarrhea Referrals / Follow Up: Manuel Zhao MD [Primary Care Provider] - Disposition Disposition (needs filled in before D/C Order can be placed): Home, Self Care
--- NOTE | 2023-09-24 08:44 | DS.PCM_ITS ---
Providers Date of Admission: 09/20/23 Primary Care Physician: Dr. Manuel Zhao MD Reason For Visit: COLON PERFORATION Diagnosis Discharge Diagnosis (1) Perforation of colon as colonoscopy complication: Status: Acute Code(s): K63.1 - Perforation of intestine (nontraumatic); K91.71 - Accidental puncture and laceration of a digestive system organ or structure during a digestive system procedure Plan: Patient is postoperative day 4 from laparoscopic exploration and primary repair of the iatrogenic colon perforation with colonoscopy. Patient IV fluids were stopped as she is tolerating a diet. Will give patient 1 more dose of Lasix 20 IV x 1. Hypokalemia will replace and give additional p.o. due to also giving Lasix. Will plan to recheck at 1 PM and likely discharge home with some KCl as well. Patient denies pain. Lea Dougherty M.D. Pager: [phone] [facility] [address] [place] [address], [facility], [address] [place] [id number] Office: [phone] Medications at Discharge Home Medications acetaminophen 325 mg capsule 325 mg PO Q4H PRN fever or pain 04/29/23 amlodipine 5 mg tablet 5 mg PO DAILY 04/29/23 bisacodyl 10 mg rectal suppository 10 mg LA DAILY PRN constipation 04/29/23 clonidine HCl 0.1 mg tablet 0.1 mg PO Q2H PRN hypertensive emergency 04/29/23 cyanocobalamin (vitamin B-12) 1,000 mcg capsule 1,000 mcg PO DAILY 04/29/23 famotidine 40 mg tablet 40 mg PO DAILY 04/29/23 loperamide 2 mg capsule (Anti-Diarrheal (loperamide)) 2 mg PO Q4H PRN loose stool 04/29/23 magnesium hydroxide 400 mg/5 mL oral suspension (Milk of Magnesia) 30 ml PO Q24H PRN constipation 04/29/23 polysaccharide iron complex 150 mg iron capsule 150 mg PO DAILY 04/29/23 propranolol 60 mg capsule,24 hr,extended release 60 mg PO DAILY 04/29/23 sennosides 8.6 mg tablet (Evac-U-Gen (sennosides)) 17.2 mg PO BID 04/29/23 tramadol 100 mg tablet 100 mg PO Q6H PRN pain 04/29/23 vitamins A,C,S-jddm-zcsgxa 4,296 mcg-226 mg-90 mg capsule (PreserVision AREDS) 1 cap PO BID 04/29/23 donepezil 5 mg disintegrating tablet 5 mg PO QHS 08/24/23 mirtazapine 15 mg tablet 15 mg PO DAILY 08/24/23 omeprazole 40 mg capsule,delayed release 40 mg PO DAILY #60 caps 09/09/23 potassium chloride 20 mEq tablet,extended release 20 meq PO DAILY #7 tabs 09/24/23 Hospital Course Operations None (Laparoscopic repair of sigmoid colon perforation) Procedures Colonoscopy (attempted) and EGD Summary of Care Provided Minutes Spent on Discharge: 15 Hospital Course: Patient presented to the hospital for an EGD and colonoscopy. Patient did have a perforation of the sigmoid colon during the colonoscopy was taken to the OR for laparoscopic repair of the sigmoid colon. Patient was kept n.p.o. until she began to have bowel function. Patient was able to tolerate diet. Patient did have issues with hypokalemia due to the diarrhea which she initially had prior to the colonoscopy as well per patient as well as receiving a couple doses of Lasix due to likely volume overload as her BNP was elevated at 600 when checked on 09/22. Will plan to have patient follow-up with PCP as well as check potassium as it outpatient and sent home with some p.o. potassium as well. Weight / BMI Weight Weight: 193 lb Body Mass Index (BMI) 32.1 ABG / Lab / Microbiology Data 09/23/23 05:55 09/24/23 12:30 Laboratory: Laboratory Results - last 24 hr 09/23/23 05:55: B-Natriuretic Peptide 688.9 H 09/23/23 14:13: Potassium 3.3 L 09/24/23 05:17: Sodium 143, Potassium 3.2 L, Chloride 113 H, Carbon Dioxide 26.0, Anion Gap 4 L, BUN 10, Creatinine 0.63, Estim Creat Clear Calc 57.20, Est GFR (MDRD) Af Amer 115, Est GFR (MDRD) Non-Af 95, BUN/Creatinine Ratio 15.8, Glucose 105, Calcium 8.2 L, Phosphorus 2.6, Magnesium 1.9 Microbiology: Microbiology 09/22/23 17:59 Stool C. difficile GDH Antigen & Toxins - Final 09/22/23 17:59 Stool Clostridioides difficile (PCR) - Final Radiography Diagnostic Testing: Radiology Impression Chest X-Ray 09/23/23 07:26 IMPRESSION: Mild degree of the vascular congestion with increased markings and areas of confluence in both parahilar regions worse at the left lung base. Electronically Signed: Brian Vieyra MD at 13:37 EDT , D/C Instructions Discharge Diet: - (transitional) May shower in (days): 1 Call your doctor if your incision/area has: Continuous Slow Oozing, Sudden Increased Bleeding, Increased Pain/ Swelling, Increased Redness, Foul Smelling Discharge and Swelling at the incision site Call your doctor if you observe: Fever of 101 or Higher Cleanse incision/area with: Soap & Water Additional Dressing/Incision Instructions: Steri-Strips will fall off in 7 to 10 days, if they do not fall off okay to remove after 10 days. Please Follow Up With: Eduardo Francis MD When: Call the office for a follow-up appointment 1 week; after 5 PM and on the weekends call [phone] with any concerns. Meaningful Use Info Meaningful Use Meaningful Use Diagnoses (Choose all that apply): None applicable Ischemic Stroke Statin Dosing Therapy Reference: STATIN DOSE THERAPY REFERENCE: * Patients > 75 years receive moderate or high dose statin therapy. * Patients 75 years or YOUNGER should receive HIGH intensity statin dose unless contraindicated. You will be required to document reason for non-treatment if statin daily dose does not meet guidelines. HIGH DOSE STATIN THERAPY DAILY Atorvastatin > than or = to 40 mg Rosuvastatin > than or = to 20 mg Amlodipine + Atorvastatin > than or = to 2.5/40 mg Ezetimibe + Simvastatin 10/80 mg Simvastatin 80mg Discharge Plan Admission Admit Date/Time: 09/20/23 15:38 Attending Provider: Eduardo Francis Primary Care Provider: Manuel Zhao Discharge Orders/Prescriptions Prescriptions: New potassium chloride 20 mEq tablet extended release 20 meq PO DAILY Qty: 7 0RF Continued donepezil 5 mg tablet,disintegrating 5 mg PO QHS mirtazapine 15 mg tablet 15 mg PO DAILY acetaminophen 325 mg capsule 325 mg PO Q4H PRN (Reason: fever or pain) amlodipine 5 mg tablet 5 mg PO DAILY bisacodyl 10 mg suppository 10 mg LA DAILY PRN (Reason: constipation) clonidine HCl 0.1 mg tablet 0.1 mg PO Q2H PRN (Reason: hypertensive emergency) Patient Comments: SBP>180 AND OR DBP>100 famotidine 40 mg tablet 40 mg PO DAILY loperamide [Anti-Diarrheal (loperamide)] 2 mg capsule 2 mg PO Q4H PRN (Reason: loose stool) Rx Instructions: administer after each loose stool until symptoms controlled; do not exceed 8 mg per 24 hrs magnesium hydroxide [Milk of Magnesia] 400 mg/5 mL suspension 30 ml PO Q24H PRN (Reason: constipation) polysaccharide iron complex 150 mg iron capsule 150 mg PO DAILY PreserVision AREDS 4,296 mcg-226 mg-90 mg capsule 1 cap PO BID propranolol 60 mg capsule,extended release 24 hr 60 mg PO DAILY tramadol 100 mg tablet 100 mg PO Q6H PRN (Reason: pain) cyanocobalamin (vitamin B-12) 1,000 mcg capsule 1,000 mcg PO DAILY omeprazole 40 mg capsule,delayed release(DR/EC) 40 mg PO DAILY Qty: 60 1RF Held sennosides [Evac-U-Gen (sennosides)] 8.6 mg tablet 17.2 mg PO BID Hold Instructions: if having diarrhea Other Ambulatory Orders: Potassium (Routine) Timeframe: [id number] Facility: [facility] - Location: Laboratory Ordered By: Dr. Lea Dougherty Referrals / Follow Up: Manuel Zhao MD [Primary Care Provider] - Disposition Disposition (needs filled in before D/C Order can be placed): Home, Self Care
[2023-09-24] MEDS: Potassium Chloride Oral Tablet 20 MEQ 60 MEQ PO (08:54)
[2023-09-24] MEDS: Mirtazapine 15 MG Tablet PO (08:57)
[2023-09-24] MEDS: Propranolol LA 60 MG Capsule PO (08:57)
[2023-09-24] MEDS: Menthol/Lanolin/Calamine/Znox 113 GM Tube 1 APPLIC TOPICAL (08:57)
[2023-09-24] MEDS: Pantoprazole Sodium 40 MG Tablet PO (08:58)
[2023-09-24] MEDS: amLODIPine 5 MG Tablet PO (08:58)
[2023-09-24] MEDS: Potassium Chloride Oral Tablet 20 MEQ 40 MEQ PO (09:06)
[2023-09-24 12:52] LABS: Anion Gap 3 (5-15); BUN 9 mg/dL (7-18); BUN/Creat Ratio 12.5 RATIO (10-20); Calcium,Total 8.1 mg/dL (8.5-10.1); Chloride 113 mmol/L (98-107); Creatinine, Serum 0.72 mg/dL (0.55-1.02); EST Glomerular Filtration Rate 82 mL/min (>60); Est Glom Filt Rate - Afr Amer 99 mL/min (>60); Glucose 114 mg/dL (74-106); Potassium 3.9 mmol/L (3.5-5.1); Sodium Level 143 mmol/L (136-145)
--- NOTE | 2023-10-11 14:25 | OP.PCM_ITS ---
Report of Operation Date of Procedure: 09/20/23 Pre-Operative Diagnosis: Diarrhea Post-Operative Diagnosis: Same Surgery/Procedure Performed:: Colonoscopy Type of Anesthesia: IV Sedation Specimen's removed: None Description of Procedure: Patient was brought back to the operating room and EGD was performed. Please see that operative report for dictation. The patient was then turned and a we ll-lubricated colonoscope was placed into the anus and up to the rectum. The sigmoid colon was very tortuous and unable to be traversed. There was a sharp turn and trying to get around the turn it was apparent that there was a perforation. The scope was withdrawn and it was only in about 15 cm. The patient will be taken to PACU to wake up and discuss repair. Colonoscopy was aborted early. Complications Perforation of the sigmoid colon
== END 2023-09-24 16:50 | disposition home or self-care (01) | DRG 330 ==
LOC: EN 16:02 → MS3 16:02
PROVIDERS: Surgery; Admitting Provider Surgery; PCP Family Medicine; Referring Provider Surgery; Visit Provider Surgery
PROC: 0DJD8ZZ Inspection of Lower Intestinal Tract, Via Natural or Artificial Opening Endoscopic (ICD-10-PCS; CPT 45378; principal; 2023-09-20 10:25)
PROC: 0DTN0ZZ Resection of Sigmoid Colon, Open Approach (ICD-10-PCS; CPT 44204; principal; 2023-09-20 12:35)
DX: K21.9 Gastro-esophageal reflux disease without esophagitis (principal); K91.71 Accidental puncture and laceration of a digestive system organ or structure during a digestive system procedure; I10 Essential (primary) hypertension; E87.6 Hypokalemia; K44.9 Diaphragmatic hernia without obstruction or gangrene; K66.0 Peritoneal adhesions (postprocedural) (postinfection); Y65.8 Other specified misadventures during surgical and medical care; Z79.899 Other long term (current) drug therapy; Z86.19 Personal history of other infectious and parasitic diseases; Z87.891 Personal history of nicotine dependence
CPT/HCPCS: 36415; 71045; 80048; 83735; 83880; 84100; 84132; 85025; 87493; 88305; 88342; 94668; 97116; 97162; 97166; 97530; 97535; J7030; J7050; J7120; A4216; C1760; J1940; J2405

== ENCOUNTER 2023-11-08 16:25 | Inpatient (IN) | payer MEDICARE, SELFPAY ==
[2023-11-04 15:31] LABS: International Normalized Ratio 1.1; Prothrombin Time (Protime)PT. 13.7 SECONDS (11.7-14.9)
[2023-11-04 16:46] LABS: AST(SGOT) 15 U/L (15-37); Alanine Aminotransfer ALT/SGPT 19 U/L (13-56); Alkaline Phosphatase 107 U/L (45-117); Bilirubin, Direct 0.06 mg/dL (0.00-0.30); Globulin 3.6 g/dL (2.2-4.2); Magnesium 2.4 mg/dL (1.6-2.6); Protein, Total 6.6 g/dL (6.4-8.2)
[2023-11-04 17:04] LABS: Potassium 3.8 mmol/L (3.5-5.1)
[2023-11-08] VITALS (19 sets, daily range): BP systolic 136–199; BP diastolic 62–89; PULSE 72–96; RESP 12–94; TEMP 36.3–37.3; O2SAT 16–98; BMI 32.6
[2023-11-08] MEDS: Lactated Ringers 1,000 ML 40 ML IV ×3 (06:34→13:31)
--- NOTE | 2023-11-08 06:39 | PCM.HP.BLA ---
History and Physical Date of Admission: 11/08/23 Intake Vital Signs 09/20/2409:15 10/10/2413:43 Height 5 ft 5 in 5 ft 5 in BP 179/82 H Blood Pressure Location Rt brachial Position Sitting Respiration 18 Pulse 72 Pulse Source Monitor Temp 97.4 F L Temp Source Temporal Pulse Oximetry (%) 98 Oxygen Delivery Method room air Intake Visit Reasons: S/P PERF COLON Chief Complaint: s/p perf colon Accompanied by: Daughter Is patient in pain?: No Allergies No Known Allergies Allergy (Verified 10/11/23 14:45) Medications ?Medication ?Instructions ?Recorded ?Confirmed ?Type acetaminophen 325 mg capsule 325 mg PO Q4H PRN fever or pain 04/29/23 10/11/23 History amlodipine 5 mg tablet 5 mg PO DAILY 04/29/23 10/11/23 History bisacodyl 10 mg rectal suppository 10 mg NE DAILY PRN constipation 04/29/23 10/11/23 History clonidine HCl 0.1 mg tablet 0.1 mg PO Q2H PRN hypertensive 04/29/23 10/11/23 History emergency cyanocobalamin (vitamin B-12) 1,000 mcg PO DAILY 04/29/23 10/11/23 History 1,000 mcg capsule famotidine 40 mg tablet 40 mg PO DAILY 04/29/23 10/11/23 History loperamide 2 mg capsule 2 mg PO Q4H PRN loose stool 04/29/23 10/11/23 History (Anti-Diarrheal (loperamide)) magnesium hydroxide 400 mg/5 mL 30 ml PO Q24H PRN constipation 04/29/23 10/11/23 History oral suspension (Milk of Magnesia) polysaccharide iron complex 150 mg 150 mg PO DAILY 04/29/23 10/11/23 History iron capsule propranolol 60 mg capsule,24 60 mg PO DAILY 04/29/23 10/11/23 History hr,extended release sennosides 8.6 mg tablet 17.2 mg PO BID 04/29/23 10/11/23 History (Evac-U-Gen (sennosides)) tramadol 100 mg tablet 100 mg PO Q6H PRN pain 04/29/23 10/11/23 History vitamins A,C,N-ttni-tlsnlp 4,296 1 cap PO BID 04/29/23 10/11/23 History mcg-226 mg-90 mg capsule (PreserVision AREDS) donepezil 5 mg disintegrating 5 mg PO QHS 08/24/23 10/11/23 History tablet mirtazapine 15 mg tablet 15 mg PO DAILY 08/24/23 10/11/23 History omeprazole 40 mg capsule,delayed 40 mg PO DAILY #60 caps 09/09/23 10/11/23 Rx release potassium chloride 20 mEq 20 meq PO DAILY #7 tabs 09/24/23 10/11/23 Rx tablet,extended release metronidazole 500 mg tablet 500 mg PO .COMPLEX #6 tabs 10/11/23 10/11/23 Rx neomycin 500 mg tablet 500 mg PO .COMPLEX pre-op 10/11/23 10/11/23 Rx antibiotics #6 tabs Have you fallen in the past year?: No PFSH Medical History (Updated 10/11/23 @ 14:46 by Amber Bonilla LPN) Perforated sigmoid colon Walker as ambulation aid Bladder disease Easy bruising Back pain Parkinson's disease Former smoker Diarrhea Belching Abdominal pain C. difficile diarrhea Nocturnal enuresis Urinary frequency Urge incontinence Wears glasses Post-menopausal Uses wheelchair Arthritis Injury of head and neck Gastric reflux Non-smoker History of edema Osteoarthritis of left knee Left rotator cuff tear arthropathy Left shoulder pain Left knee pain HTN (hypertension) Anxiety Surgical History Hx of surgical procedure Hx of bilateral cataract extraction S/P hip replacement Social History Smoking Status: Former smoker alcohol intake: never substance use type: does not use HPI HPI HPI: Patient is an 83-year-old female following up after laparoscopic repair of sigmoid injury during colonoscopy. Patient reports she is doing well with no complaints ROS General General: No weight change, appetite, fatigue, colon cancer, breast cancer or weakness HEENT HEENT: Yes difficulty swallowing, eye injury and eye surgery; No swollen glands or hoarseness Endo Endocrine: No thyroid disease, diabetes mellitus, thyroid cancer, Hair loss, heat intolerance or cold intolerance Skin Skin: No rash or changing moles Breast Breast: No left breast lump, right breast lump, nipple discharge, breast pain, abnormal mammogram, abnormal US or breast enlargement Musc Musculoskeletal: Yes arthritis; No back problems, rheumatoid arthritis, gout or joint pain Cardio Cardiovascular: No murmur, pacemaker, heart disease, atrial fibrillation, high blood pressure, heart attack, heart stent, palpitations, shortness of breat with exertion or chest pain Psych Psychiatric: No depression, anxiety or hearing voices Resp Respiratory: No shortness of breath, No sleep apnea, No cough, No COPD, No asthma, No emphysema and No wheezing Gastro Gastrointestinal: Yes abdominal pain, Yes nausea or vomiting, Yes diarrhea, No constipation, No blood in stool, Yes acid reflux, No hemorrhoids, No ulcers, No gallbladder problem and Yes black,tarry stools Jose Hematologic: No blood thinners, No blood disorders, No bleeding, No anemia and No blood clots Neuro Neurologic: No system reviewed and no additional complaints, except as documented, No as per HPI, No abnormal gait, No abnormal hearing, No abnormal movements, No abnormal speech, No behavioral changes, No burning sensations, No confusion, No convulsions, No disequilibrium, No dizziness, No localized weakness, No frequent falls, No headache(s), No lack of coordination, No loss of vision, No memory loss, No numbness, No other visual disturbances, No radicular pain, No restless legs, No sensory deficit, No syncope, No tingling, No tremor(s), No weakness and No other Exam Const General: cooperative Orientation: alert and oriented x3 HENMT Head: normal to inspection Neck Neck: normal visual inspection and full ROM Chest Chest palpation & inspection: normal inspection of the chest Resp Effort & Inspection: normal respiratory effort Auscultation: clear to auscultation bilaterally Cardio Rate: regular rate Rhythm: regular rhythm GI Inspection: non-distended Palpation: soft and nontender Skin General: no rashes or lesions noted Neuro General: patient alert and patient oriented x3 Extrem General: full ROM Psych Appearance: grossly normal Mental Status: mental status grossly normal Assessment and Plan Assessment and Plan (1) Diarrhea: Status: Acute Plan: The patient had perforation of her sigmoid colon during colonoscopy. I took her for exploratory laparoscopy and found that her sigmoid colon was tightly adherent to the lateral abdominal sidewall causing a hairpin turn. The perforation was repaired with sutures. She is doing well now and I recommend sigmoid colectomy. I think that the sigmoid colon being scarred into where it is is causing a partial obstruction which is the cause of the diarrhea. I also cannot evaluate the colon and do biopsies until the sigmoid colon is dealt with as the turn is too tight for sigmoidoscope or colonoscope. I discussed laparoscopic sigmoid colectomy with her in detail. I discussed the risks including but not limited to bleeding, infection, injury other organ such as the bowel, bladder or ureter, blood supply to the pelvis or legs. Patient understands the risks and is willing to proceed. Eduardo Francis MD Pager: [facility] [address] [place] [address] [address] [place] [address] Office: I have seen and reexamined the patient and reviewed the H&P. There are no changes.
[2023-11-08] MEDS: Acetaminophen 500 MG Tablet 1000 MG PO ×2 (06:40→18:21)
[2023-11-08] MEDS: Gabapentin 600 MG Tablet PO (06:40)
[2023-11-08] MEDS: Magnesium 1 GM over 15 mins IV (06:40)
--- NOTE | 2023-11-08 06:57 | PRE.ANES_ITS ---
ASA Classification* ASA Classification ASA Classification: 2 Assessment & Plan Anesthesia* Anesthesia Assessment Anesthesia Assessment: Discussed sedation and/or anesthesia options, risks, benefits, and alternatives with patient/parents/legal guardian/POA. Questions invited. The patient/parents/legal guardian/POA seems to understand and agrees to proceed with anesthesia plan. Reviewed the physical assessment, medical history, allergy history and patient home medications list prior to surgery/procedure/anesthetic and documented any changes. Performed airway and anesthesia risk assessments. Anesthesia Type Anesthesia Type: General (see written pre anesthesia record for full assessment) Anesthesia Focused Assessment* Temperature: 97.6 F Pulse Rate: 75 Blood Pressure: 179/67 Respiratory Rate: 16 Pulse Ox: 94 Airway Assessment Mouth opens: >3 cm Mallampati Score: II Focused Labs Anesthesia Preop lab: CBC WBC 9.0 K/mm3 (4.4-11.0) 09/23/23 05:55 RBC 3.99 M/mm3 (4.2-5.4) L 09/23/23 05:55 Hgb 9.6 g/dL (12.0-15.0) L 09/23/23 05:55 Hct 32.5 % (37-47) L 09/23/23 05:55 Plt Count 248 K/mm3 (150-450) 09/23/23 05:55 CHEMISTRY Potassium 3.8 mmol/L (3.5-5.1) 11/04/23 13:02 Sodium 143 mmol/L (136-145) 09/24/23 12:30 Magnesium 2.4 mg/dL (1.6-2.6) 11/04/23 13:02 Phosphorus 2.6 mg/dL (2.5-4.9) 09/24/23 05:17 BUN 9 mg/dL (7-18) 09/24/23 12:30 Creatinine 0.72 mg/dL (0.55-1.02) 09/24/23 12:30 Glucose 114 mg/dL (74-106) H 09/24/23 12:30 COAG PT 13.7 SECONDS (11.7-14.9) 11/04/23 13:02 Pre-Assessment Diagnosis/Proposed Procedure Planned Operative Procedure(s): LAP SIGMOID COLECTOMY ERAS Anesthesia History Anesthesia History - orthotist or prosthetist: Anesthesia History - orthotist or prosthetist Hx Hospitalization Yes: PERFORATED BOWEL 08/202310/25/23 15:16 Any Problems With Anesthesia No 10/25/23 15:16 Cholinesterase deficiency No 10/25/23 15:16 You/Your Family Experience No 10/25/23 15:16 fever (hyperthermia) with Relationship Recent Exposure to Contagious No 11/08/23 06:35 Disease Does patient have nerve No 10/25/23 15:16 stimulator Patient instructed to have device shut off --Does patient have Pacemaker No 11/08/23 06:35 or ICD? When Was Last Pacemaker Check QUESTION #4 FULL TEXT: You/Your Family Experience fever (hyperthermia) with Anesthesia Last Oral Intake Last Oral intake: Last Oral Intake NPO since 00:00 11/08/23 06:35 Meds taken in AM with sips of No 11/08/23 06:35 water? Meds patient instructed to take am of surgery PONV PONV - orthotist or prosthetist: PONV - orthotist or prosthetist Female Yes 10/25/23 15:16 HX of Motion Sickness No 10/25/23 15:16 HX of N/V After Surgery No 10/25/23 15:16 Non-Smoker Yes 10/25/23 15:16 Duration of Surgery greater Yes 10/25/23 15:16 than 60 minutes Number of Risk Factors 3 10/25/23 15:16 PONV Score Moderate Risk 10/25/23 15:16 Height & Weight Height & Weight: Anesthesia: Height & Weight Height 5 ft 5 in 11/08/23 06:35 Weight: 89.1 kg 11/08/23 06:35 Body Mass Index (BMI) 32.6 11/08/23 06:35 Respiratory Assessment Respiratory Assessment - orthotist or prosthetist: Respiratory Tract Infection Hx - orthotist or prosthetist Hx Respiratory Tract Infection No 10/25/23 15:16 STOP Sleep Apnea STOP Sleep Apnea - orthotist or prosthetist: STOP Sleep Apnea - orthotist or prosthetist Hx Hypertension Yes: CONTROLLED ON MED 10/25/23 15:16 Hx Sleep Apnea No 10/25/23 15:16 CPAP No 10/25/23 15:16 BIPAP Do you snore loudly (louder No 10/25/23 15:16 than talking or can be heard Do you often feel tired/ No 10/25/23 15:16 fatigued/ sleepy during daytime? Has anyone observed you stop No 10/25/23 15:16 breathing during sleep? STOP Results Negative 10/25/23 15:16 QUESTION #5 FULL TEXT : Do you snore loudly (louder than talking or can be heard through closed doors)? 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 Specify any problems Hx of Preganancy in last 3 No 10/25/23 15:16 Months Nurse Filling Out Transfusion DSCHRIBER 10/25/23 15:16 & Questions: Date: 10/25/23 10/25/23 15:16 Time: 15:18 10/25/23 15:16 Patient unable to answer at this time (ie. confused, unrespo /Reproduction History /Reproductive History - orthotist or prosthetist: /Reproductive Hx- orthotist or prosthetist Hx Now No 10/25/23 15:16 Gestational Age (in weeks): EDC: Hx Hx Para Hx Section SAB No 10/25/23 15:16 Active Medications Active Medications: Current Medications Generic Name Dose Route Start Last Admin Trade Name Freq PRN Reason Stop Dose Admin Acetaminophen 1,000 mg 11/08/23 08:55 11/08/23 06:40 Acetaminophen 500 Mg Tablet PO 11/08/23 08:56 1,000 mg PREOP ONE Administration Gabapentin 600 mg 11/08/23 08:55 11/08/23 06:40 Gabapentin 600 Mg Tablet PO 11/08/23 08:56 600 mg PREOP ONE Administration Cefotetan Disodium 2 gm/ 100 mls @ 200 mls/hr 11/08/23 08:55 Sodium Chloride IV 11/08/23 09:24 PREOP ONE Lactated Ringer's 1,000 mls @ 40 mls/hr 11/08/23 08:55 11/08/23 06:34 IV 40 mls/hr .Q25H MARCIAL Administration Magnesium Sulfate 1 gm/ 102 mls @ 408 mls/hr 11/08/23 08:55 11/08/23 06:40 Dextrose IV 11/08/23 09:09 408 mls/hr X1 ONE Administration Insulin Human Lispro 0 unit 11/08/23 08:55 Insulin Lispro 100 Unit/Ml Insuln.Pen SC 11/08/23 15:00 Q4H PRN PRN BG >/= 180, SEE PROTOCOL Protocol PFSH Medical History Lives in assisted living facility Perforated sigmoid colon Walker as ambulation aid Bladder disease Easy bruising Back pain Diarrhea Belching Abdominal pain C. difficile diarrhea Nocturnal enuresis Urinary frequency Urge incontinence Wears glasses Post-menopausal Uses wheelchair Arthritis Injury of head and neck Gastric reflux Non-smoker History of edema Osteoarthritis of left knee Left rotator cuff tear arthropathy Left shoulder pain Left knee pain HTN (hypertension) Anxiety Home Medications ?Medication ?Instructions ?Recorded ?Last Taken ?Type acetaminophen 325 mg capsule 650 mg PO Q4H PRN fever or pain 04/29/23 Unknown History amlodipine 5 mg tablet 5 mg PO DAILY BP 04/29/23 11/07/23 History bisacodyl 10 mg rectal suppository 10 mg WA DAILY PRN constipation 04/29/23 Unknown History clonidine HCl 0.1 mg tablet 0.1 mg PO Q2H PRN hypertensive 04/29/23 Unknown History emergency cyanocobalamin (vitamin B-12) 1,000 mcg PO DAILY SUPPLEMENT 04/29/23 11/07/23 History 1,000 mcg capsule loperamide 2 mg capsule 2 mg PO Q4H PRN loose stool 04/29/23 Unknown History (Anti-Diarrheal (loperamide)) magnesium hydroxide 400 mg/5 mL 30 ml PO Q24H PRN constipation 04/29/23 Unknown History oral suspension (Milk of Magnesia) polysaccharide iron complex 150 mg 150 mg PO DAILY SUPPLEMENT 04/29/23 11/07/23 History iron capsule propranolol 60 mg capsule,24 60 mg PO DAILY BP 04/29/23 11/07/23 History hr,extended release tramadol 100 mg tablet 100 mg PO Q6H PRN pain 04/29/23 Unknown History vitamins A,C,L-qyvs-jvweli 4,296 1 cap PO BID EYE VITAMIN 04/29/23 11/07/23 History mcg-226 mg-90 mg capsule (PreserVision AREDS) donepezil 5 mg disintegrating 5 mg PO QHS MEMORY 08/24/23 11/07/23 History tablet mirtazapine 15 mg tablet 15 mg PO DAILY ANXIETY 08/24/23 11/07/23 History omeprazole 40 mg capsule,delayed 40 mg PO DAILY GERD #60 caps 09/09/23 11/07/23 Rx release potassium chloride 20 mEq 20 meq PO DAILY SUPPLEMENT #7 tabs 09/24/23 Unknown Rx tablet,extended release fluoxetine 40 mg capsule 40 mg PO DAILY DEPRESSION 10/25/23 11/07/23 History sennosides 8.6 mg capsule (senna) 17.2 mg PO DAILY PRN PRN 10/25/23 Unknown History constipation Allergy/AdvReac Type Severity Reaction Status Date / Time No Known Allergies Allergy Verified 11/08/23 06:33 Surgical History Hx of colonoscopy Hx of surgical procedure Hx of bilateral cataract extraction S/P hip replacement Social History Smoking Status: Former smoker alcohol intake: never substance use type: does not use Review of Systems (Anesthesia) ROS Narrative System reviewed and no additional complaints, except as documented.
[2023-11-08 07:04] LABS: Bedside Glucose 123 mg/dL (74-106)
--- NOTE | 2023-11-08 07:30 | COL._PTH ---
PATIENT: TAMIE GONSALEZ LOC: [facility] U#:[id number] AGE/SX: 83/F ROOM: IL313 RE11/08/[address]: Dr. Eduardo Francis MD : 1940 BED: 1 DIS: 11/11/2023 SPEC #: [id number] RECD: 11/08/23 10:49 STATUS: SO HANNAH #: [id number] CRISTINA: 11/08/23 07:[address]: Eduardo Francis DEPT: SURGICAL PATHOLOGY RECD BY: Jessica Butler ENTERED: 11/08/23 11:47 SP TYPE: COLON OTHR DR: MD Dr. Manuel Cadena MD Dr. Tamera Robotham, MD Tissues: A - Colon, NOS B - Colon Donuts Procedures: Surgery Specimen Level III Surgery Specimen Level HEADER OPERATION: Attempted laparoscopic sigmoid colectomy PRE-OP DIAGNOSIS: Perforation of sigmoid colon during colonoscopy, partial obstruction TISSUE SUBMITTED: A- Sigmoid colon, B- Proximal and distal colon donuts MICROSCOPIC DIAGNOSIS A. Sigmoid colon, colectomy: Diverticulosis. Acute and chronic inflammation, suture granulomas and foreign body giant cell reaction, changes consistent with previous history of perforation. Two benign pericolonic lymph nodes. B. Proximal and distal colon donuts: Colonic donuts, no pathologic diagnosis. SJ.mr 11/10/2023 COMMENT Case has been reviewed in consultation with Dr. Zacarias who concurs with the above diagnosis. IDC:AM MICROSCOPIC DESCRIPTION Slides are reviewed. GROSS DESCRIPTION A. Received in fixative is one container labeled with the patient's name and designated Sigmoid colon. The specimen consists of a segment of colon with attached pericolonic adipose tissue measuring 8.0cm in length. Both resection margins are stapled. Lumen contains a small amount of fecal material. No mucosal lesion is identified. More dictation will follow after additional fixation. MEENA.mr 11/08/2023 Focal area of serosal adhesion is noted, and this area is 3.5cm away from one resection margin. Sections of this area reveal a clip and multiple diverticula. Sections of the rest of the specimen also reveal multiple diverticula. Obviously ruptured diverticula are seen. Diverticula are filled with fecal material. Sections of the pericolonic adipose tissue do not reveal any obvious enlarged lymph node. Remnants Cutter sections are submitted in seven cassettes as follows: 1- resection margins, 2&3- diverticula, 4-6- diverticula in the area of serosal adhesion and clip, 7- pericolonic adipose tissue. 11/09/2023 B. Received in fixative is one container labeled with the patient's name and designated Proximal and distal colon donuts. The specimen consists of two donut shaped pieces of colonic tissue measuring 1.5 x 1.5 x 0.6cm and 2.5 x 2.0 x 1.0cm. The larger piece shows sutures. No lesion is identified. Remnants Cutter sections from both pieces are submitted in one cassette. 11/08/2023 TC:3 CPT: 54236, 47016 x2
[2023-11-08] MEDS: Cefotetan 2 GM in 0.9% Normal Saline (100mL MB+) 100 ML IV (07:32)
[2023-11-08] MEDS: Bupivacaine 0.25% 30 ML Vial (09:46)
[2023-11-08] MEDS: BUPIVACAINE LIPOSOME/PF 20 ML VIAL OPERA.SITE (09:47)
--- NOTE | 2023-11-08 10:22 | OP.PCM_ITS ---
Report of Operation Date of Procedure: 11/08/23 Pre-Operative Diagnosis: Sigmoid stricture Post-Operative Diagnosis: Same Surgery/Procedure Performed:: Laparoscopic sigmoid colectomy Type of Anesthesia: General/Regional Specimen's removed: Sigmoid colon and donuts Estimated Blood Loss (mL): 20 Description of Procedure: Patient was brought back to the operating room and general anesthesia was induced. The abdomen was prepped and draped in usual sterile fashion after Ybarra catheter was placed. A midline incision was made superior to the umbilicus and deepened to the fascia which was elevated and incised. The abdomen was entered and insufflated to 15 mmHg. Next under direct visualization a 5 mm port was placed in the left lower quadrant as well as a 5 mm port in the right upper quadrant and a 12 mm port in the right lower quadrant. Next the patient was placed in steep Trendelenburg and the pelvis was inspected. There were adhesions from her last surgery which were taken down. The part of the sigmoid colon that was inflamed was isolated. Proximal this the colon was taken down from its lateral attachments using Enseal. There was an area tightly ad herent to the right pelvis which was taken down. The left ureter was identified and spared. The mesentery to the sigmoid was then taken down using Enseal. Next the procedure was converted to open and a longer midline incision was created inferior to the umbilicus. Wound protector was placed. The sigmoid colon was followed down to the rectum and a stapler was used to staple across the sigmoid colon. The proximal end was stapled in the same fashion the segment was removed. Next the staple line was removed from the proximal colon and it was sized and a 29 EEA stapler was selected. The anvil was then placed into the distal colon and pursestring using 0 Prolene suture was created. The sizer was then inserted into the rectum and it appeared that the distal rectum was still having a stricture and kinking. I was unable to get down to the pelvis to dissect free the most distal sigmoid but we decided to put an anastomosis to the anterior rectum. The stapler was placed into the rectum and deployed in the rectal anterior wall. The anvil was placed on the spike and it was closed and stapled. Stapler was removed and there were good donuts. Next a pressure test was performed and the well-lubricated sigmoidoscope was placed into the rectum and air was insufflated. There was good leak test with no bubbles. Next the abdomen was suctioned dry and irrigated again and suctioned dry again. The wound protector was twisted and tied and the abdomen was reinsufflated. Using the M Close device the superior port and right lower quadrant port fascia was closed using 0 Vicryl suture. All gown and gloves were changed. The wound protector was removed and the fascia was closed with running 0 PDS from the top and bottom meeting in the middle. The subcutaneous tissue was irrigated and suctioned dry. All incisions were closed with interrupted 4-0 Monocryl sutures and Steri-Strips and bandages. Patient was awoken and taken to PACU in stable condition and the Ybarra catheter was left in place. Admit VTE Documentation VTE Mechan Device Prophylaxis: SCD's
--- NOTE | 2023-11-08 10:28 | PCM.POST.ANE ---
Anesthesia: Postop Eval I Current Vital Signs Temperature: 97.4 F Pulse Rate: 96 Blood Pressure: 177/76 Respiratory Rate: 16 Pulse Ox: 92 Oxygen Delivery Method: Nasal Cannula Oxygen Flow Rate (L/min): 4 Assessment Airway patent: Yes Spontaneous unlabored respirations: Yes Mental status: Awake and Calm nausea: No Vomiting: No Anesthesia Complication: No Fluid Hydration Crystalloid volume administer (ml): 1,100 Total IV fluid infused: 1,100 Progress Note Anesthesia document: Postop Eval 1 completed: Yes
--- NOTE | 2023-11-08 12:17 | POSTOPAN2_ITS ---
Anesthesia Postop Eval I Sum Postop Eval Completion status Anesthesia document: Postop Eval 1 completed: Yes Anesthesia Postop Eval I Summary Anesthesia Postop Eval I Summary: Anesthesia Postop Eval I: Assessment Summary Airway patent Yes 11/08/23 10:36 SOCIAL [email or web address].[email or web address] Spontaneous unlabored Yes 11/08/23 10:36 SOCIAL SCIENTIST.GDOTT respirations Mental status Awake,Calm 11/08/23 10:36 SOCIAL SCIENTIST.GDOTT nausea No 11/08/23 10:36 SOCIAL SCIENTIST.GDOTT Vomiting No 11/08/23 10:36 SOCIAL SCIENTIST.GDOTT Anesthesia Postop Eval I: Fluid Summary Crystalloid volume administer 1,100 11/08/23 10:36 SOCIAL SCIENTIST.GDOTT (ml) Colloids volume administered ( ml) Blood Product volume administered (ml) Total IV fluid infused 1,100 11/08/23 10:36 SOCIAL SCIENTIST.GDOTT Anesthesia Postop Eval I: Summary Notes Anesthesia Complication No 11/08/23 10:36 SOCIAL SCIENTIST.GDOTT Anesthesia Complication Comment: Post-operative progress note Anesthesia: Postop Eval II Evaluation Mental status: Awake and Calm Pain Level: 1 nausea: No Vomiting: No Complications Anesthesia Complication: No
--- NOTE | 2023-11-08 12:17 | PCM.POSTANE2 ---
Anesthesia Postop Eval I Sum Postop Eval Completion status Anesthesia document: Postop Eval 1 completed: Yes Anesthesia Postop Eval I Summary Anesthesia Postop Eval I Summary: Anesthesia Postop Eval I: Assessment Summary Airway patent Yes 11/08/23 10:36 RANGE MANAGEMENT SPECIALIST.[email or web address] Spontaneous unlabored Yes 11/08/23 10:36 RANGE MANAGEMENT SPECIALIST.GDOTT respirations Mental status Awake,Calm 11/08/23 10:36 RANGE MANAGEMENT SPECIALIST.GDOTT nausea No 11/08/23 10:36 RANGE MANAGEMENT SPECIALIST.GDOTT Vomiting No 11/08/23 10:36 RANGE MANAGEMENT SPECIALIST.GDOTT Anesthesia Postop Eval I: Fluid Summary Crystalloid volume administer 1,100 11/08/23 10:36 RANGE MANAGEMENT SPECIALIST.GDOTT (ml) Colloids volume administered ( ml) Blood Product volume administered (ml) Total IV fluid infused 1,100 11/08/23 10:36 RANGE MANAGEMENT SPECIALIST.GDOTT Anesthesia Postop Eval I: Summary Notes Anesthesia Complication No 11/08/23 10:36 RANGE MANAGEMENT SPECIALIST.GDOTT Anesthesia Complication Comment: Post-operative progress note Anesthesia: Postop Eval II Evaluation Mental status: Awake and Calm Pain Level: 1 nausea: No Vomiting: No Complications Anesthesia Complication: No
[2023-11-08] MEDS: Ketorolac 15 MG/ML Vial IV ×2 (12:24→18:19)
[2023-11-08] MEDS: LACTATED RINGERS 500 ML 999 ML IV (18:18)
[2023-11-08] MEDS: 0.9% Saline Lock 10 ML Syringe IV (18:19)
[2023-11-08] MEDS: cloNIDine HCl 0.1 MG Tablet PO (18:32)
[2023-11-08] MEDS: Donepezil HCl 5 MG Tablet PO (20:58)
[2023-11-09] VITALS (10 sets, daily range): BP systolic 145–168; BP diastolic 58–74; PULSE 69–81; RESP 14–16; TEMP 36.3–37.2; O2SAT 91–99
[2023-11-09] MEDS: Ketorolac 15 MG/ML Vial IV ×4 (00:32→17:15)
[2023-11-09] MEDS: Lactated Ringers 1,000 ML 40 ML IV ×2 (00:41→09:25)
[2023-11-09] MEDS: Lactated Ringers 1,000 ML 999 ML IV (04:14)
[2023-11-09] MEDS: Acetaminophen 500 MG Tablet 1000 MG PO ×3 (04:27→17:16)
[2023-11-09 06:58] LABS: Hematocrit 28.8 % (37-47); Hemoglobin 8.2 g/dL (12.0-15.0); Mean Corp Hgb Conc 28.5 g/dL (32-36); Mean Corpuscular Hgb 23.4 pg (27.0-32.0); Mean Corpuscular Volume 82.1 fL (81-99); Mean Platelet Vol. 9.8 fl (6.2-12.0); Platelet Count 257 K/mm3 (150-450); RBC Distribution Width SD 47.8 fl (35.1-43.9); Red Blood Count 3.51 M/mm3 (4.2-5.4)
--- NOTE | 2023-11-09 07:55 | PN.SURG_ITS ---
Subjective Subjective Patient is an 83 y/o F I am following s/p colectomy with Dr. Francis. Patient states she is very tired this morning. She notes she was able to sleep all night, however nursing noted she was not able to sleep prior to the surgery. She denies abdominal pain, nausea, vomiting. She is tolerating clear liquids. She denies any flatus and bowel movement. Objective Data Objective Data Vital Signs: Vital Signs Temp Pulse Resp BP Pulse Ox O2 Del Method O2 Flow Rate 98 F 70 16 168/70 H 96 Nasal Cannula 1 11/09/23 04:10 11/09/23 04:10 11/09/23 04:10 11/09/23 04:10 11/09/23 05:13 11/09/23 05:13 11/09/23 05:13 Oxygen Flow Rate (L/min) 1 Oxygen Delivery Method Nasal Cannula Weight: 196 lb 6.91 oz Body Mass Index (BMI) 32.6 Intake & Output: Intake and Output for Last 24 Hours 11/07/23 11/08/23 11/09/23 23:59 23:59 23:59 Intake Total 2075.33 / 2075.33 1828.67 / 1828.67 Output Total 770 / 770 300 / 300 Balance 1305.33 / 1305.33 1528.67 / 1528.67 Lab / Micro Data 11/09/23 06:29 11/09/23 06:29 Labs: Laboratory Results - last 24 hr 11/09/23 06:29: WBC 12.0 H, RBC 3.51 L, Hgb 8.2 L, Hct 28.8 L, MCV 82.1, MCH 23.4 L, MCHC 28.5 L, RDW Std Deviation 47.8 H, RDW Coeff of Berry 16.0 H, Plt Count 257, MPV 9.8 Physical Exam GI GI Narrative: Abdomen- soft, slight tenderness to the abdomen. Incisions intact. Midline incision with drainage noted at the distal aspect of the op-site. Remaining op- sites dry, clean. Assessment & Plan Assessment/Plan (1) Perforated sigmoid colon: PLAN: I am following this patient in conjunction with Dr. Prado in Dr. Francis's absence. CBC reviewed. Chemistry pending Continue IV fluids Continue clear liquid diet Encourage ambulation in the hallway 3 times a day and sitting in the chair for every meal Keep Ybarra intact May chew gum and hard candy Kpad for abdomen We will continue to closely monitor this patient Charges/Coding Visit Charges Inpatient E&M: 57697 Subs Hosp L1 (No charge; post-op)
[2023-11-09 08:09] LABS: Anion Gap 6 (5-15); BUN 13 mg/dL (7-18); BUN/Creat Ratio 10.1 RATIO (10-20); Calcium,Total 8.4 mg/dL (8.5-10.1); Chloride 107 mmol/L (98-107); Creatinine, Serum 1.29 mg/dL (0.55-1.02); EST Glomerular Filtration Rate 42 mL/min (>60); Est Glom Filt Rate - Afr Amer 51 mL/min (>60); Estimated Creatinine Clearance 35.79 ml/min; Glucose 127 mg/dL (74-106); Potassium 3.1 mmol/L (3.5-5.1); Sodium Level 140 mmol/L (136-145)
[2023-11-09] MEDS: Docusate Sodium 100 MG Capsule PO (09:16)
[2023-11-09] MEDS: Propranolol LA 60 MG Capsule PO (09:16)
[2023-11-09] MEDS: amLODIPine 5 MG Tablet PO (09:17)
[2023-11-09] MEDS: Fluoxetine HCl 40 MG CAPSULE PO (09:17)
[2023-11-09] MEDS: Pantoprazole Sodium 40 MG Tablet PO (09:17)
[2023-11-09] MEDS: Mirtazapine 15 MG Tablet PO (09:17)
[2023-11-09] MEDS: Potassium Chloride Oral Tablet 20 MEQ PO (09:17)
[2023-11-09] MEDS: Ensure Plus High Protein 120 ML LIQUID PO (09:20)
[2023-11-09] MEDS: Potassium Chloride 10mEq/100mL 10 MEQ/100 ML IV.SOLN. 100 MEQ IV BOLUS ×4 (09:25→15:29)
--- NOTE | 2023-11-09 10:03 | NURSING ---
Avril Stoll called to check on pt. Is aware that there is 175cc of urine in mohamud since last emptied at 0600 this morning. Pt is awake and Alert and finishing up breakfast.
--- NOTE | 2023-11-09 10:34 | CASEMGMT ---
Social Work SW met with pt and introduced self and role of SW. Pt is admitted from the [facility]. Pt states she has been getting along well there and plans to return when medically ready. Therapy ordered to assess pt's ability to return to [place]. [place] oceanographer assistant notified and will send updates to [facility]. Plan: Return to [facility] pending therapy JHONATAN Quiroz
[2023-11-09] MEDS: LACTATED RINGERS 500 ML 999 ML IV (10:38)
--- NOTE | 2023-11-09 10:42 | CASEMGMT ---
Discharge Planning Updates sent to [facility] [place]. Requested copies of advanced directives be faxed to unit. Josette Azevedo DC Planning Asst.
--- NOTE | 2023-11-09 11:30 | NURSING ---
Pt tells me she passed flatus and had a bm in her attends was already cleaned up but this RN was getting pt up to get OOB when therapy walked in.
--- NOTE | 2023-11-09 12:18 | CASEMGMT ---
Social Work SW met with pt to discuss advance directives.? Pt confirms she has completed a living will and health care POA naming her daughter Gem Villela.? Pt notified that documents are not on file at [facility] and SW requested they be brought in for scanning into the EMR. SW touched base with [facility] and they do not have a living will or HCPOA on file. Pt states her daughter has the documents and she lives in [place] and is aware that they need sent in. ? JHONATAN Tomlinson
[2023-11-09] MEDS: Morphine 2 MG/ML Syringe IV (20:35)
[2023-11-09] MEDS: Donepezil HCl 5 MG Tablet PO (20:38)
[2023-11-10] VITALS (7 sets, daily range): BP systolic 142–187; BP diastolic 52–70; PULSE 72–79; RESP 15–18; TEMP 36.6–36.9; O2SAT 92–97
[2023-11-10] MEDS: Acetaminophen 500 MG Tablet 1000 MG PO ×4 (01:22→18:02)
[2023-11-10 07:19] LABS: Absolute Lymphocyte Count 1.46 X10^3/uL (0.83-4.51); Absolute Neutrophil Count 6.5 X10^3/uL (2.0-7.7); Basophil# 0.06 X10^3/uL; Basophil% 0.7 % (0-1); Eosinophil# 0.24 X10^3/uL; Eosinophils% 2.6 % (0-5); Hematocrit 27.9 % (37-47); Hemoglobin 8.1 g/dL (12.0-15.0); Lymphocyte # 1.46 X10^3/ul (0.83-4.51); Mean Corpuscular Hgb 23.6 pg (27.0-32.0); Mean Corpuscular Volume 81.3 fL (81-99); Mean Platelet Vol. 10.9 fl (6.2-12.0); Monocyte# 0.83 X10^3/uL; Monocyte% 9.1 % (0-10); NRBC Flagged by Analyzer 0 % (0-5); Neutrophil % 71.5 % (47-70); Platelet Count 216 K/mm3 (150-450); RBC Distribution Width CV 16.1 % (11.6-14.6); RBC Distribution Width SD 47.7 fl (35.1-43.9); Red Blood Count 3.43 M/mm3 (4.2-5.4); White Blood Count 9.1 K/mm3 (4.4-11.0)
--- NOTE | 2023-11-10 07:29 | PCM.PN.SRG ---
Subjective Subjective Patient is an 83 y/o F I am following s/p sigmoid colectomy. Patient is more alert this morning. She is very pleasant. She notes passing a large amount of flatus and having 2 liquidy bowel movements. She denies any abdominal pain/pressure. She denies any nausea, vomiting. Her urine output has increased throughout yesterday and last night. Denies fever. Has been ambulating in the hallway and sitting in the chair. Objective Data Objective Data Vital Signs: Vital Signs Temp Pulse Resp BP Pulse Ox O2 Del Method O2 Flow Rate 97.9 F 72 15 165/66 H 92 Room Air 1 11/10/23 03:44 11/10/23 03:44 11/10/23 03:44 11/10/23 03:44 11/10/23 03:44 11/10/23 04:00 11/09/23 09:09 Oxygen Flow Rate (L/min) 1 Oxygen Delivery Method Room Air Weight: 196 lb 6.91 oz Body Mass Index (BMI) 32.6 Intake & Output: Intake and Output for Last 24 Hours 11/08/23 11/09/23 11/10/23 23:59 23:59 23:59 Intake Total 2075.33 / 2075.33 4231.34 / 4381.34 150 / 150 Output Total 770 / 770 2300 / 2800 1100 / 1100 Balance 1305.33 / 1305.33 1931.34 / 1581.34 -950 / -950 Lab / Micro Data 11/10/23 06:29 11/09/23 06:29 Labs: Laboratory Results - last 24 hr 11/09/23 06:29: Sodium 140, Potassium 3.1 L, Chloride 107, Carbon Dioxide 27.0, Anion Gap 6, BUN 13, Creatinine 1.29 H, Estim Creat Clear Calc 35.79, Est GFR (MDRD) Af Amer 51 L, Est GFR (MDRD) Non-Af 42 L, BUN/Creatinine Ratio 10.1, Glucose 127 H, Calcium 8.4 L 11/10/23 06:29: WBC 9.1, RBC 3.43 L, Hgb 8.1 L, Hct 27.9 L, MCV 81.3, MCH 23.6 L, MCHC 29.0 L, RDW Std Deviation 47.7 H, RDW Coeff of Berry 16.1 H, Plt Count 216, MPV 10.9, Immature Gran % (Auto) 0.100, Neut % (Auto) 71.5 H, Lymph % (Auto) 16.0 L, [place] % (Auto) 9.1, Eos % (Auto) 2.6, Baso % (Auto) 0.7, Absolute Neuts (auto) 6.5, Absolute Lymphs (auto) 1.46, Nucleated RBC % 0 Physical Exam GI GI Narrative: Abdomen- soft, positive bowel sounds. Non-tender. Incisions c/d/i. Midline dressing changed from surgery today secondary to dark/dried bloody drainage. No active oozing noted. Some steri-strips were removed as well. Assessment & Plan Assessment/Plan (1) Perforated sigmoid colon: PLAN: I am following this patient in conjunction with Dr. Francis. He has independently evaluated this patient. CBC reviewed with white count improved. Chemistry pending Stop IV fluids Discontinue Ybarra Increase to transitional diet Continue ambulation We will continue to monitor this patient Likely discharge tomorrow to [facility] Charges/Coding Visit Charges Inpatient E&M: 48769 Subs Hosp L1 (No charge; post-op)
[2023-11-10 07:55] LABS: Anion Gap 6 (5-15); BUN 9 mg/dL (7-18); BUN/Creat Ratio 13.5 RATIO (10-20); Calcium,Total 8.4 mg/dL (8.5-10.1); Chloride 111 mmol/L (98-107); Creatinine, Serum 0.66 mg/dL (0.55-1.02); EST Glomerular Filtration Rate 90 mL/min (>60); Est Glom Filt Rate - Afr Amer 109 mL/min (>60); Estimated Creatinine Clearance 57.72 ml/min; Glucose 100 mg/dL (74-106); Phosphorus 2.5 mg/dL (2.5-4.9); Potassium 3.5 mmol/L (3.5-5.1); Sodium Level 141 mmol/L (136-145)
[2023-11-10] MEDS: cloNIDine HCl 0.1 MG Tablet PO (08:25)
[2023-11-10] MEDS: Fluoxetine HCl 40 MG CAPSULE PO (08:25)
[2023-11-10] MEDS: amLODIPine 5 MG Tablet PO (08:25)
[2023-11-10] MEDS: Mirtazapine 15 MG Tablet PO (08:25)
[2023-11-10] MEDS: Pantoprazole Sodium 40 MG Tablet PO (08:25)
[2023-11-10] MEDS: Propranolol LA 60 MG Capsule PO (08:26)
[2023-11-10] MEDS: Potassium Chloride Oral Tablet 20 MEQ PO (08:26)
--- NOTE | 2023-11-10 15:00 | CASEMGMT ---
Addendum entered by Abby Adam 11/10/23 16:13: Social Work SW met with pt, pt's son and pt's dgt on speaker phone. SW discussed discharge plan and pt and family agreeable. All questions regarding discharge process answered. Plan: Return to [facility] living with part B therapy services. JHONATAN Tomlinson Addendum entered by Abby Adam 11/10/23 15:15: Therapy is recommending some continued therapy at the [facility]. [facility] confirms they can provide needed therapy under part B once pt returns. JHONATAN Tomlinson Original Note: Social Work SW spoke with therapy who feel pt did well enough to return to [facility]. Updated clinicals sent to [facility]. Anticipate return tomorrow. JHONATAN Tomlinson
[2023-11-10] MEDS: Menthol/Lanolin/Calamine/Znox 113 GM Tube 1 APPLIC TOPICAL (21:11)
[2023-11-10] MEDS: Donepezil HCl 5 MG Tablet PO (21:12)
[2023-11-11] VITALS: BP 195/79; PULSE 81; RESP 18; TEMP 36.6; O2SAT 92
[2023-11-11] MEDS: cloNIDine HCl 0.1 MG Tablet PO ×2 (00:04→05:35)
[2023-11-11 05:20] VITALS: O2SAT 85
[2023-11-11 05:27] VITALS: BP 196/73; PULSE 81; RESP 18; TEMP 37; O2SAT 94
[2023-11-11] MEDS: Acetaminophen 500 MG Tablet 1000 MG PO (05:35)
[2023-11-11 06:22] VITALS: BP 150/53; PULSE 77; O2SAT 97
[2023-11-11 06:54] LABS: Absolute Lymphocyte Count 1.38 X10^3/uL (0.83-4.51); Absolute Neutrophil Count 6.6 X10^3/uL (2.0-7.7); Basophil# 0.04 X10^3/uL; Basophil% 0.4 % (0-1); Eosinophil# 0.21 X10^3/uL; Eosinophils% 2.3 % (0-5); Hematocrit 28.9 % (37-47); Hemoglobin 8.2 g/dL (12.0-15.0); Lymphocyte # 1.38 X10^3/ul (0.83-4.51); Lymphocyte % 15.3 % (19-41); Mean Corp Hgb Conc 28.4 g/dL (32-36); Mean Corpuscular Hgb 23.2 pg (27.0-32.0); Mean Corpuscular Volume 81.9 fL (81-99); Mean Platelet Vol. 10.3 fl (6.2-12.0); Monocyte# 0.81 X10^3/uL; NRBC Flagged by Analyzer 0 % (0-5); Neutrophil # 6.56 X10^3/uL (2.7-7.7); Neutrophil % 72.7 % (47-70); Platelet Count 248 K/mm3 (150-450); RBC Distribution Width CV 16.4 % (11.6-14.6); RBC Distribution Width SD 48.4 fl (35.1-43.9); Red Blood Count 3.53 M/mm3 (4.2-5.4)
[2023-11-11 07:08] LABS: Anion Gap 5 (5-15); BUN 12 mg/dL (7-18); BUN/Creat Ratio 19.6 RATIO (10-20); Calcium,Total 8.3 mg/dL (8.5-10.1); Chloride 112 mmol/L (98-107); Creatinine, Serum 0.61 mg/dL (0.55-1.02); EST Glomerular Filtration Rate 99 mL/min (>60); Est Glom Filt Rate - Afr Amer 120 mL/min (>60); Estimated Creatinine Clearance 57.72 ml/min; Glucose 110 mg/dL (74-106); Potassium 3.3 mmol/L (3.5-5.1); Sodium Level 144 mmol/L (136-145)
[2023-11-11 07:30] VITALS: O2SAT 94
--- NOTE | 2023-11-11 08:14 | PCM.PN.SRG ---
Subjective Subjective Patient is doing well this morning with no complaints Objective Data Objective Data Vital Signs: Vital Signs Temp Pulse Resp BP Pulse Ox O2 Del Method O2 Flow Rate 98.6 F 77 18 150/53 H 97 Nasal Cannula 2 11/11/23 05:27 11/11/23 06:22 11/11/23 05:27 11/11/23 06:22 11/11/23 06:22 11/11/23 06:22 11/11/23 06:22 Oxygen Flow Rate (L/min) 2 Oxygen Delivery Method Nasal Cannula Weight: 196 lb 6.91 oz Body Mass Index (BMI) 32.6 Intake & Output: Intake and Output for Last 24 Hours 11/09/23 11/10/23 11/11/23 23:59 23:59 23:59 Intake Total 4231.34 / 4381.34 1370 / 1370 200 / 200 Output Total 2300 / 2800 1600 / 1600 Balance 1931.34 / 1581.34 -230 / -230 200 / 200 Lab / Micro Data 11/11/23 05:53 11/11/23 05:53 Labs: Laboratory Results - last 24 hr 11/11/23 05:53: WBC 9.0, RBC 3.53 L, Hgb 8.2 L, Hct 28.9 L, MCV 81.9, MCH 23.2 L, MCHC 28.4 L, RDW Std Deviation 48.4 H, RDW Coeff of Berry 16.4 H, Plt Count 248, MPV 10.3, Immature Gran % (Auto) 0.300, Neut % (Auto) 72.7 H, Lymph % (Auto) 15.3 L, [place] % (Auto) 9.0, Eos % (Auto) 2.3, Baso % (Auto) 0.4, Absolute Neuts (auto) 6.6, Absolute Lymphs (auto) 1.38, Nucleated RBC % 0, Sodium 144, Potassium 3.3 L, Chloride 112 H, Carbon Dioxide 27.0, Anion Gap 5, BUN 12, Creatinine 0.61, Estim Creat Clear Calc 57.72, Est GFR (MDRD) Af Amer 120, Est GFR (MDRD) Non-Af 99, BUN/Creatinine Ratio 19.6, Glucose 110 H, Calcium 8.3 L Physical Exam Const oriented x3 and no apparent distress Resp normal respiratory effort GI soft to palpation and non-tender Assessment & Plan Assessment/Plan (1) H/O colectomy: PLAN: The patient is tolerating transitional diet and doing well. I will discharge her back to her ECF today. Eduardo Francis MD Pager: [facility] [address] [place] [address], [address] [place] [phone] Office:
--- NOTE | 2023-11-11 08:16 | PCM.TXEXTCAR ---
Diet Diet Order/Speech Therapy: 11/10/23 07:27 Diet: Transitional Wound(s) ABDOMEN, MIDLINE VERTICAL: Wound Type: Surgical Incision ABDOMEN - LAP SITES: Wound Type: Surgical Incision Therapies Physical Therapy: Eval and Treat Occupational Therapy: Eval and Treat Problem/Diagnosis (1) H/O colectomy: Status: Acute Code(s): Z90.49 - Acquired absence of other specified parts of digestive tract Plan: The patient is tolerating transitional diet and doing well. I will discharge her back to her ECF today. Eduardo Francis MD Pager: [facility] [address] [place] [address], [address] [place] [address] Office: Allergies/Procedures Done in Hospital Allergies No Known Allergies Allergy (Verified 11/08/23 06:33) Type of Care/Length of Stay Estimated LOS: More Than 30 Days Type of Care Needed: Skilled Rehab Potential: Good Prognosis: Good Additional Orders/Day of Discharge Day of Discharge: 11/11/23 Dietary and Speech Recommendations Dietitian Recommendations/Changes: ADAT to low fiber diet when medically able to manage medical conditions. RD will order 120mL ensure clear 4x daily with medpass to provide supplemental energy on clear liquid diet. RD will discontinue 120mL ensure plus high protein BID with medpass, not appropriate on clear liquid diet. Follow Up Care Please Follow Up With: Eduardo Francis MD When: Please call to schedule 1 week follow up appointment. [phone] Discharge Plan Admission Admit Date/Time: 11/08/23 16:25 Attending Provider: Eduardo Francis Primary Care Provider: Manuel Zhao Consulting Providers: Radames Colmenares; Lea Dougherty Discharge Orders/Prescriptions Prescriptions: Continued donepezil 5 mg tablet,disintegrating 5 mg PO QHS mirtazapine 15 mg tablet 15 mg PO DAILY acetaminophen 325 mg capsule 650 mg PO Q4H PRN (Reason: fever or pain) amlodipine 5 mg tablet 5 mg PO DAILY bisacodyl 10 mg suppository 10 mg KS DAILY PRN (Reason: constipation) clonidine HCl 0.1 mg tablet 0.1 mg PO Q2H PRN (Reason: hypertensive emergency) Patient Comments: SBP>180 AND OR DBP>100 loperamide [Anti-Diarrheal (loperamide)] 2 mg capsule 2 mg PO Q4H PRN (Reason: loose stool) Rx Instructions: administer after each loose stool until symptoms controlled; do not exceed 8 mg per 24 hrs magnesium hydroxide [Milk of Magnesia] 400 mg/5 mL suspension 30 ml PO Q24H PRN (Reason: constipation) polysaccharide iron complex 150 mg iron capsule 150 mg PO DAILY PreserVision AREDS 4,296 mcg-226 mg-90 mg capsule 1 cap PO BID propranolol 60 mg capsule,extended release 24 hr 60 mg PO DAILY tramadol 100 mg tablet 100 mg PO Q6H PRN (Reason: pain) cyanocobalamin (vitamin B-12) 1,000 mcg capsule 1,000 mcg PO DAILY potassium chloride 20 mEq tablet extended release 20 meq PO DAILY Qty: 7 0RF fluoxetine 40 mg capsule 40 mg PO DAILY senna 8.6 mg capsule 17.2 mg PO DAILY PRN PRN (Reason: constipation) omeprazole 40 mg capsule,delayed release(DR/EC) 40 mg PO DAILY Qty: 60 1RF Referrals / Follow Up: Manuel Zhao MD [Primary Care Provider] - Disposition Disposition (needs filled in before D/C Order can be placed): [facility]
--- NOTE | 2023-11-11 08:18 | PCM.DC.SUM ---
Providers Date of Admission: 11/08/23 Primary Care Physician: Dr. Manuel Zhao MD Reason For Visit: ERAS, Laparoscopic, Sigmoid Colectomy Diagnosis Discharge Diagnosis (1) H/O colectomy: Status: Acute Code(s): Z90.49 - Acquired absence of other specified parts of digestive tract Plan: The patient is tolerating transitional diet and doing well. I will discharge her back to her [facility] today. Eduardo Francis MD Pager: [facility] [address] [place] [address], [address] [place] [address] Office: Medications at Discharge Home Medications acetaminophen 325 mg capsule 650 mg PO Q4H PRN fever or pain 04/29/23 amlodipine 5 mg tablet 5 mg PO DAILY BP 04/29/23 bisacodyl 10 mg rectal suppository 10 mg AL DAILY PRN constipation 04/29/23 clonidine HCl 0.1 mg tablet 0.1 mg PO Q2H PRN hypertensive emergency 04/29/23 cyanocobalamin (vitamin B-12) 1,000 mcg capsule 1,000 mcg PO DAILY SUPPLEMENT 04/29/23 loperamide 2 mg capsule (Anti-Diarrheal (loperamide)) 2 mg PO Q4H PRN loose stool 04/29/23 magnesium hydroxide 400 mg/5 mL oral suspension (Milk of Magnesia) 30 ml PO Q24H PRN constipation 04/29/23 polysaccharide iron complex 150 mg iron capsule 150 mg PO DAILY SUPPLEMENT 04/29/23 propranolol 60 mg capsule,24 hr,extended release 60 mg PO DAILY BP 04/29/23 tramadol 100 mg tablet 100 mg PO Q6H PRN pain 04/29/23 vitamins A,C,R-bafo-oqcaiw 4,296 mcg-226 mg-90 mg capsule (PreserVision AREDS) 1 cap PO BID EYE VITAMIN 04/29/23 donepezil 5 mg disintegrating tablet 5 mg PO QHS MEMORY 08/24/23 mirtazapine 15 mg tablet 15 mg PO DAILY ANXIETY 08/24/23 omeprazole 40 mg capsule,delayed release 40 mg PO DAILY GERD #60 caps 09/09/23 potassium chloride 20 mEq tablet,extended release 20 meq PO DAILY SUPPLEMENT #7 tabs 09/24/23 fluoxetine 40 mg capsule 40 mg PO DAILY DEPRESSION 10/25/23 sennosides 8.6 mg capsule (senna) 17.2 mg PO DAILY PRN PRN constipation 10/25/23 Hospital Course Operations colectomy Procedures None Summary of Care Provided Hospital Course: Patient was admitted after elective sigmoid colectomy. Following surgery she was slowly advanced on her diet and once tolerating a diet she was discharged home. Weight / BMI Weight Weight: 196 lb 6.91 oz Body Mass Index (BMI) 32.6 ABG / Lab / Microbiology Data 11/11/23 05:53 11/11/23 05:53 Laboratory: Laboratory Results - last 24 hr 11/11/23 05:53: WBC 9.0, RBC 3.53 L, Hgb 8.2 L, Hct 28.9 L, MCV 81.9, MCH 23.2 L, MCHC 28.4 L, RDW Std Deviation 48.4 H, RDW Coeff of Berry 16.4 H, Plt Count 248, MPV 10.3, Immature Gran % (Auto) 0.300, Neut % (Auto) 72.7 H, Lymph % (Auto) 15.3 L, [place] % (Auto) 9.0, Eos % (Auto) 2.3, Baso % (Auto) 0.4, Absolute Neuts (auto) 6.6, Absolute Lymphs (auto) 1.38, Nucleated RBC % 0, Sodium 144, Potassium 3.3 L, Chloride 112 H, Carbon Dioxide 27.0, Anion Gap 5, BUN 12, Creatinine 0.61, Estim Creat Clear Calc 57.72, Est GFR (MDRD) Af Amer 120, Est GFR (MDRD) Non-Af 99, BUN/Creatinine Ratio 19.6, Glucose 110 H, Calcium 8.3 L D/C Instructions Discharge Diet: No restrictions Discharge Activity: May Shower Lifting Restrictions: 15 lbs for 6 weeks Call your doctor if your incision/area has: Continuous Slow Oozing, Sudden Increased Bleeding, Increased Pain/ Swelling, Increased Redness, Foul Smelling Discharge and Swelling at the incision site Call your doctor if you observe: Fever of 101 or Higher Remove Dressing in: 1 day Cleanse incision/area with: Soap & Water Please Follow Up With: Eduardo Francis MD When: Please call to schedule 1 week follow up appointment. [phone] Meaningful Use Info Meaningful Use Meaningful Use Diagnoses (Choose all that apply): None applicable Ischemic Stroke Statin Dosing Therapy Reference: STATIN DOSE THERAPY REFERENCE: * Patients > 75 years receive moderate or high dose statin therapy. * Patients 75 years or YOUNGER should receive HIGH intensity statin dose unless contraindicated. You will be required to document reason for non-treatment if statin daily dose does not meet guidelines. HIGH DOSE STATIN THERAPY DAILY Atorvastatin > than or = to 40 mg Rosuvastatin > than or = to 20 mg Amlodipine + Atorvastatin > than or = to 2.5/40 mg Ezetimibe + Simvastatin 10/80 mg Simvastatin 80mg Discharge Plan Admission Admit Date/Time: 11/08/23 16:25 Attending Provider: Eduardo Francis Primary Care Provider: Manuel Zhao Consulting Providers: Radames Colmenares; Lea Dougherty Discharge Orders/Prescriptions Prescriptions: Continued donepezil 5 mg tablet,disintegrating 5 mg PO QHS mirtazapine 15 mg tablet 15 mg PO DAILY acetaminophen 325 mg capsule 650 mg PO Q4H PRN (Reason: fever or pain) amlodipine 5 mg tablet 5 mg PO DAILY bisacodyl 10 mg suppository 10 mg AL DAILY PRN (Reason: constipation) clonidine HCl 0.1 mg tablet 0.1 mg PO Q2H PRN (Reason: hypertensive emergency) Patient Comments: SBP>180 AND OR DBP>100 loperamide [Anti-Diarrheal (loperamide)] 2 mg capsule 2 mg PO Q4H PRN (Reason: loose stool) Rx Instructions: administer after each loose stool until symptoms controlled; do not exceed 8 mg per 24 hrs magnesium hydroxide [Milk of Magnesia] 400 mg/5 mL suspension 30 ml PO Q24H PRN (Reason: constipation) polysaccharide iron complex 150 mg iron capsule 150 mg PO DAILY PreserVision AREDS 4,296 mcg-226 mg-90 mg capsule 1 cap PO BID propranolol 60 mg capsule,extended release 24 hr 60 mg PO DAILY tramadol 100 mg tablet 100 mg PO Q6H PRN (Reason: pain) cyanocobalamin (vitamin B-12) 1,000 mcg capsule 1,000 mcg PO DAILY potassium chloride 20 mEq tablet extended release 20 meq PO DAILY Qty: 7 0RF fluoxetine 40 mg capsule 40 mg PO DAILY senna 8.6 mg capsule 17.2 mg PO DAILY PRN PRN (Reason: constipation) omeprazole 40 mg capsule,delayed release(DR/EC) 40 mg PO DAILY Qty: 60 1RF Referrals / Follow Up: Manuel Zhao MD [Primary Care Provider] - Disposition Disposition (needs filled in before D/C Order can be placed): Assisted Facility
[2023-11-11 09:30] VITALS: BP 158/62; PULSE 83; RESP 18; TEMP 36.3; O2SAT 92
[2023-11-11] MEDS: Potassium Chloride Oral Tablet 20 MEQ 60 MEQ PO (09:33)
[2023-11-11] MEDS: Pantoprazole Sodium 40 MG Tablet PO (09:34)
[2023-11-11] MEDS: Propranolol LA 60 MG Capsule PO (09:34)
[2023-11-11] MEDS: amLODIPine 5 MG Tablet PO (09:34)
[2023-11-11] MEDS: Menthol/Lanolin/Calamine/Znox 113 GM Tube 1 APPLIC TOPICAL (09:34)
[2023-11-11] MEDS: Fluoxetine HCl 40 MG CAPSULE PO (09:34)
[2023-11-11] MEDS: Mirtazapine 15 MG Tablet PO (09:34)
--- NOTE | 2023-11-11 10:03 | CASEMGMT ---
Discharge Planning Discharge summary and transport time sent to [facility] Wheelchair transport was scheduled with [facility] for 11:30a. Nursing, SW, patient, and her son (Migue) updated. LITA Mace Planning Asst.
--- NOTE | 2023-11-11 10:17 | PHA.DC.MR.R ---
[facility] has performed discharge medication reconciliation for this patient. The patient's discharge medication list was reviewed for discrepancies and discrepancies were resolved. Medications at Discharge Home Medications acetaminophen 325 mg capsule 650 mg PO Q4H PRN fever or pain 04/29/23 amlodipine 5 mg tablet 5 mg PO DAILY BP 04/29/23 bisacodyl 10 mg rectal suppository 10 mg CO DAILY PRN constipation 04/29/23 clonidine HCl 0.1 mg tablet 0.1 mg PO Q2H PRN hypertensive emergency 04/29/23 cyanocobalamin (vitamin B-12) 1,000 mcg capsule 1,000 mcg PO DAILY SUPPLEMENT 04/29/23 loperamide 2 mg capsule (Anti-Diarrheal (loperamide)) 2 mg PO Q4H PRN loose stool 04/29/23 magnesium hydroxide 400 mg/5 mL oral suspension (Milk of Magnesia) 30 ml PO Q24H PRN constipation 04/29/23 polysaccharide iron complex 150 mg iron capsule 150 mg PO DAILY SUPPLEMENT 04/29/23 propranolol 60 mg capsule,24 hr,extended release 60 mg PO DAILY BP 04/29/23 tramadol 100 mg tablet 100 mg PO Q6H PRN pain 04/29/23 vitamins A,C,A-cjce-nakpva 4,296 mcg-226 mg-90 mg capsule (PreserVision AREDS) 1 cap PO BID EYE VITAMIN 04/29/23 donepezil 5 mg disintegrating tablet 5 mg PO QHS MEMORY 08/24/23 mirtazapine 15 mg tablet 15 mg PO DAILY ANXIETY 08/24/23 omeprazole 40 mg capsule,delayed release 40 mg PO DAILY GERD #60 caps 09/09/23 potassium chloride 20 mEq tablet,extended release 20 meq PO DAILY SUPPLEMENT #7 tabs 09/24/23 fluoxetine 40 mg capsule 40 mg PO DAILY DEPRESSION 10/25/23 sennosides 8.6 mg capsule (senna) 17.2 mg PO DAILY PRN PRN constipation 10/25/23
== END 2023-11-11 12:30 | disposition home or self-care (01) | DRG 330 ==
LOC: MS3 16:34
PROVIDERS: Anesthesiology; Physician Assistant; Surgery; Admitting Provider Surgery; PCP Family Medicine; Referring Provider Surgery; Visit Provider Surgery
PROC: 0DTN0ZZ Resection of Sigmoid Colon, Open Approach (ICD-10-PCS; CPT 44204; principal; 2023-11-08 07:05)
DX: K56.51 Intestinal adhesions [bands], with partial obstruction (principal); N17.9 Acute kidney failure, unspecified; G20.A1 Parkinson's disease without dyskinesia, without mention of fluctuations; I10 Essential (primary) hypertension; R19.7 Diarrhea, unspecified; I16.0 Hypertensive urgency; K56.600 Partial intestinal obstruction, unspecified as to cause; Z53.31 Laparoscopic surgical procedure converted to open procedure; Z79.899 Other long term (current) drug therapy; Z87.891 Personal history of nicotine dependence; Z53.39 Other specified procedure converted to open procedure
CPT/HCPCS: 36415; 80048; 80076; 82962; 83735; 84100; 84132; 85025; 85027; 85610; 85730; 88304; 88309; 94668; 94762; 97162; 97166; 97530; 97535; 99252; J7120; A4216; C1760; G0463; J2405; J3475

== ENCOUNTER → 2023-11-18 | Outpatient (CLI) | payer MEDICARE, SELFPAY | END | disposition home or self-care (01) | PROVIDERS: PCP Family Medicine; Referring Provider Surgery; Visit Provider Surgery | DX: R19.7 Diarrhea, unspecified (principal); K58.9 Irritable bowel syndrome, unspecified | CPT/HCPCS: 82274; 83630; 87177; 87209; 87493; 87506 ==

== ENCOUNTER → 2023-12-13 | Outpatient (CLI) | payer MEDICARE, SELFPAY ==
--- OUTSIDE RECORDS SUMMARY | 2023-12-13 16:46 | XMS RPT_ITS | CCD ---
Author Organization [facility] Care Team Providers Care Corrections Identification Technician Name Role Phone Adrienne PARKNKasiSNOW REMOVAL SUPERVISOR, Sun Unavailable Manuel Zhao MD Primary Care Provider [phone] ADALBERTO DE LEÓN Attending Unavailable Medications Current Medications Medication Drug Class(es) Dates Sig (Normalized) Sig (Original) donepezil hydrochloride 5 mg oral tablet (4 sources) Start: 04-28-2023 End: 04-27-2024 take 1 tablet by mouth once daily at bedtime donepezil (ARICEPT) 5 mg tablet Take 1 tablet by mouth daily at bedtime. 30 tablet 11 04/28/2023 04/27/2024 Active Comment on above: Take 1 tablet by ernesto th daily at bedtime. 24 hr mirabegron 25 mg extended release oral tablet (4 sources) beta3-Adrenergic Agonist Start: 04-28-2023 End: 04-27-2024 take 1 tablet by mouth once daily mirabegron (MYRBETRIQ) 25 mg Tb24 Take 1 tablet by mouth once daily. 30 tablet 11 04/28/2023 04/27/2024 Active Comment on above: Take 1 tablet by ernesto th once daily. Completed/Discontinued Medications Medication Drug Class(es) Dates Sig (Normalized) Sig (Original) acetaminophen 325 mg oral tablet (3 sources) take 2 tablets by mouth every four hours as needed acetaminophen (TYLENOL) 325 mg tablet Take 2 tablets by mouth every 4 hours as needed for pain. 0 Active Comment on above: Take 2 tablets by mo uth every 4 hours as needed for pain. amLODIPine 5 mg oral tablet (3 sources) Dihydropyridine Calcium Channel Lila take 1 tablet by mouth once daily amLODIPine (NORVASC) 5 mg tablet Take 1 tablet by mouth once daily. 0 Active Comment on above: Take 1 tablet by ernesto once daily. bisacodyl 10 mg rectal suppository (3 sources) Stimulant Laxative take 10 mg rectal route every twenty-four hours as needed for constipation BISACODYL RECTAL 10 mg by RECTAL route every 24 hours. as needed for constipation. 0 Active Comment on above: 10 mg by RECTAL rout e every 24 hours. as needed for constipation. cloNIDine hydrochloride 0.1 mg oral tablet (3 sources) Central alpha-2 Adrenergic Agonist cloNIDine HCl (CATAPRES) 0.1 mg tablet Take 0.1 mg by mouth. Give 1 tablet by mouth every 2 hours as need for HTN take 1 tab by mouth as needed if SBP>180 AND/OR DBP>100 May repeat dose 2 hours after if needed 0 Active Comment on above: Take 0.1 mg by mouth . Give 1 tablet by mouth every 2 hours as need for HTN take 1 tab by mouth as needed if SBP>180 AND/OR DBP>100 May repeat dose 2 hours after if needed cyanocobalamin, vitamin B-12, (VITAMIN B-12 ORAL) (3 sources) take 1000 ug by mouth once daily cyanocobalamin, vitamin B-12, (VITAMIN B-12 ORAL) Take 1,000 mcg by mouth once daily. 0 Active Comment on above: Take 1,000 mcg by mo [facility] once daily. famotidine 40 mg oral tablet (3 sources) Histamine-2 Receptor Antagonist take 1 tablet by mouth once daily as needed famotidine (PEPCID) 40 mg tablet Take 40 mg by mouth once daily as needed (Acid Reflux). 0 Active Comment on above: Take 40 mg by mouth once daily as needed (Acid Reflux). FLUoxetine 40 mg oral capsule (3 sources) Serotonin Reuptake Inhibitor take 1 capsule by mouth once daily FLUoxetine (PROZAC) 40 mg capsule Take 40 mg by mouth once daily. 0 Active Comment on above: Take 40 mg by mouth once daily. loperamide hydrochloride 2 mg oral capsule (3 sources) Opioid Agonist take 2 capsules by mouth every four hours as needed loperamide (IMODIUM) 2 mg cap(s) Take 2 capsules by mouth every 4 hours as needed for diarrhea. 0 Active Comment on above: Take 2 capsules by m outh every 4 hours as needed for diarrhea. Magnesium Hydroxide (3 sources) take 30 mL by mouth every twenty-four hours magnesium hydroxide (MILK OF MAGNESIA ORAL) Take 30 mL by mouth every 24 hours. 0 Active Comment on above: Take 30 mL by mouth every 24 hours. meloxicam 7.5 mg oral tablet (3 sources) Nonsteroidal Anti-inflammatory Drug take 2 tablets by mouth once daily meloxicam (MOBIC) 7.5 mg tablet Take 15 mg by mouth once daily. 0 Active Comment on above: Take 15 mg by mouth once daily. mirtazapine 15 mg oral tablet (3 sources) take 1 tablet by mouth once daily at bedtime mirtazapine (REMERON) 15 mg tablet Take 1 tablet by mouth daily at bedtime. 0 Active Comment on above: Take 1 tablet by ernesto th daily at bedtime. oxybutynin chloride 5 mg oral tablet (3 sources) Cholinergic Muscarinic Antagonist take 1 tablet by mouth twice daily oxybutynin (DITROPAN) 5 mg tablet Take 5 mg by mouth two times a day. 0 Active Comment on above: Take 5 mg by mouth t wo times a day. polysaccharide iron complex 150 mg oral capsule (3 sources) take 1 tablet by mouth once daily Polysaccharide Iron Complex 150 mg iron tab Take 1 tablet by mouth once daily. 0 Active Comment on above: Take 1 tablet by ernesto th once daily. 24 hr propranolol hydrochloride 60 mg extended release oral capsule (3 sources) beta-Adrenergic Lila take 1 capsule by mouth once daily propranolol ER (INDERAL LA) 60 mg 24 hr capsule Take 60 mg by mouth once daily. 0 Active Comment on above: Take 60 mg by mouth once daily. sennosides, long-term 8.6 mg oral tablet (3 sources) take 2 tablets by mouth twice daily Senna 8.6 mg tab Take 2 tablets by mouth two times a day. 0 Active Comment on above: Take 2 tablets by mo uth two times a day. sodium phosphate, dibasic 59.3 mg/ml / sodium phosphate, monobasic 161 mg/ml enema (3 sources) sodium phosphate-sodium bisphosphate (FLEET) enema 1 Enema by RECTAL route as needed for constipation. 0 Active Comment on above: 1 Enema by RECTAL ro parvez as needed for constipation. traMADol hydrochloride 100 mg oral tablet (3 sources) Opioid Agonist take 1 tablet by mouth every six hours as needed traMADol (ULTRAM) 100 mg tablet Take 100 mg by mouth every 6 hours as needed for pain. 0 Active Comment on above: Take 100 mg by mouth every 6 hours as needed for pain. vit A/vit C/vit E/zinc/copper (PRESERVISION AREDS ORAL) (3 sources) take 1 capsule by mouth twice daily vit A/vit C/vit E/zinc/copper (PRESERVISION AREDS ORAL) Take 1 capsule by mouth two times a day. 0 Active Comment on above: Take 1 capsule by mo uth two times a day. Problems Problem Classification Problem Date Documented Da te Episodic/Chronic Delirium, dementia, and amnestic and other cognitive disorders (4 sources) Dementia associated with another disease; Translations: [Dementia in other diseases classified elsewhere without behavioral disturbance] Onset: 04-28-2023 04-28-2023 Chronic Other diseases of bladder and urethra (4 sources) Overactive bladder; Translations: [Overactive bladder] Onset: 04-28-2023 04-28-2023 Chronic Other hereditary and degenerative nervous system conditions (4 sources) Essential tremor; Translations: [Essential tremor] Onset: 04-28-2023 04-28-2023 Chronic Residual codes; unclassified (1 source) History of clinical finding in subject; Translations: [Personal history of other specified conditions] 04-28-2023 Episodic Results Test Name Value Interpretation Reference Range Facil lacy Brock 06-03-2023 CNPN Telephone (GENSWS) CORDELIA GONSALEZ ([id number]) 1940 [facility] Date Time Provider Department 06/03/23 FAIZAN WYNN GENSWS During your visit today, we recorded the following information about you: Amber Winslow LPN 06/03/2023 11:31 AM Signed SERVANDO García at [facility] called. Raquel is asking that orders for upcoming surgery be faxed to [phone]. She states that their normal fax is down and perhaps missed orders to it. SERVANDO Boyer Rhonda, UMESH 06/07/2023 9:57 AM Signed Reviewed chart, the patient has never been evaluated by the general surgery office or had a procedure performed by our office. Called and spoke with Raquel, advised that I do not have any medical records for Cordelia. She voiced understanding. Gabrielle Nichole RN Allergies As of Date: 06/03/2023 (No Known Allergies) Date Reviewed: 04/28/2023 Reviewed by: Jeanne Irwin MA - Fully Assessed Reason for Visit: Orders [[id number]] Prescriptions as of 06/07/2023 - acetaminophen (TYLENOL) 325 mg tablet Take 2 tablets by mouth every 4 hours as needed for pain. - amLODIPine (NORVASC) 5 mg tablet Take 1 tablet by mouth once daily. - BISACODYL RECTAL 10 mg by RECTAL route every 24 hours. as needed for constipation. - cloNIDine HCl (CATAPRES) 0.1 mg tablet Take 0.1 mg by mouth. Give 1 tablet by mouth every 2 hours as need for HTN take 1 tab by mouth as needed if SBP>180 AND/OR DBP>100 May repeat dose 2 hours after if needed - famotidine (PEPCID) 40 mg tablet Take 40 mg by mouth once daily as needed (Acid Reflux). - sodium phosphate-sodium bisphosphate (FLEET) enema 1 Enema by RECTAL route as needed for constipation. - FLUoxetine (PROZAC) 40 mg capsule Take 40 mg by mouth once daily. - loperamide (IMODIUM) 2 mg cap(s) Take 2 capsules by mouth every 4 hours as needed for diarrhea. - meloxicam (MOBIC) 7.5 mg tablet Take 15 mg by mouth once daily. - magnesium hydroxide (MILK OF MAGNESIA ORAL) Take 30 mL by mouth every 24 hours. - mirtazapine (REMERON) 15 mg tablet Take 1 tablet by mouth daily at bedtime. - oxybutynin (DITROPAN) 5 mg tablet Take 5 mg by mouth two times a day. - Polysaccharide Iron Complex 150 mg iron tab Take 1 tablet by mouth once daily. - vit A/vit C/vit E/zinc/copper (PRESERVISION AREDS ORAL) Take 1 capsule by mouth two times a day. - propranolol ER (INDERAL LA) 60 mg 24 hr capsule Take 60 mg by mouth once daily. - Senna 8.6 mg tab Take 2 tablets by mouth two times a day. - traMADol (ULTRAM) 100 mg tablet Take 100 mg by mouth every 6 hours as needed for pain. - cyanocobalamin, vitamin B-12, (VITAMIN B-12 ORAL) Take 1,000 mcg by mouth once daily. - donepezil (ARICEPT) 5 mg tablet Take 1 tablet by mouth daily at bedtime. - mirabegron (MYRBETRIQ) 25 mg Tb24 Take 1 tablet by mouth once daily. Problem List As Of Date 06/03/2023 Noted Resolved Dementia due to medical condition without behav*04/28/2023 OAB (overactive bladder) [N32.81] 04/28/2023 Essential tremor [G25.0] 04/28/2023 Encounter Status:Closed by GABRIELLE NICHOLE on 06/07/23 [facility] CNOVon 04-28-2023 CNOV Office Visit (NRMDN) CORDELIA GONSALEZ ([id number]) 1940 F Date Time Provider Department 04/28/23 10:00 AM ADALBERTO DE LEÓN During your visit today, we recorded the following information about you: Weight Height 88.5 kg 1.676 m Adalberto De León MD 04/28/2023 12:52 PM Signed [facility] - NEW PATIENT EVALUATION Primary Care Provider: Manuel Zhao MD [address] [place] [id number] Dear Manuel Zhao MD: I had the pleasure of evaluating Ms. Gonsalez in our clinic today. As you know she is a 83 year old left-handed female who presents for evaluation of tremor since 2019. Subjective HISTORY OF PRESENT ILLNESS: Initial HPI She has had tremors for a few years and was diagnosed with essential tremor and this has been helped with propranolol. She has been having problems with her speech. She was seen by a neurologist in the [place], [place] by a Dr. Shabazz who was concerned with Parkinson's disease. She has a history of seizures and was on Oxycarbazine in the past and it was stopped. She has not had more seizures. She appears to have been on Olanzapine for depression after her passed 04/27/2021. Movement Disorders Medications Schedule - as of the start of the visit: Medications None Questionnaires In addition, the following areas that may be affected by abnormal involuntary movements were evaluated: Daily activities Difficulties with eating: Yes (mild) Difficulties in dressing: Yes (mild) Difficulties with hygiene activities: Yes (mild) Difficulties with handwriting: Yes (severe) Difficulties with doing hobbies and other activities: Yes (severe) Difficulties turning in bed: Yes (severe) Difficulties getting out of bed, car or chair: Yes (mild) Tremors/Gait/Balance Shaking or tremors: Yes (mild) Walking and balance problems: Yes (severe) Number of falls in the Last Month: 0 Gait freezing: Yes (severe) Autonomic/Pain Lightheadeness on standing: Yes (mild) Urinary problems: Yes (mild) Constipation problems: Yes (moderate) Pain and other sensations: Yes (mild) Speech/Swallowing Speech problems: Yes (mild) Droolin (none) Chewing and swallowing problems: 0 (none) Sleep/Fatigue Sleep problems: Yes (slight) Daytime sleepiness: Yes (mild) Fatigue: Yes (mild) Mood/Behavior Depression: PHQ-9 Score: 4 usually representing no significant (0-4) depression. Anxiety: VAUGHN-7 Total Score: 0 usually representing no significant (0-4) anxiety. Finally, the following table shows the patient's overall global physical and mental health using the PROMIS scale: PROMIS-10 Flowsheet Row Office Visit from 04/28/2023 in Neurology Global Physical Health T Score 37.4 Global Mental Health T Score 45.8 0-10 Standard Pain Scale 4 *PROMIS-10 scoring scale: mean = 50, over 50 is above average, under 50 is below average ALLERGIES No Known Allergies Current Outpatient Medications Medication Sig acetaminophen (TYLENOL) 325 mg tablet Take 2 tablets by mouth every 4 hours as needed for pain. amLODIPine (NORVASC) 5 mg tablet Take 1 tablet by mouth once daily. BISACODYL RECTAL 10 mg by RECTAL route every 24 hours. as needed for constipation. cloNIDine HCl (CATAPRES) 0.1 mg tablet Take 0.1 mg by mouth. Give 1 tablet by mouth every 2 hours as need for HTN take 1 tab by mouth as needed if SBP>180 AND/OR DBP>100 May repeat dose 2 hours after if needed famotidine (PEPCID) 40 mg tablet Take 40 mg by mouth once daily as needed (Acid Reflux). sodium phosphate-sodium bisphosphate (FLEET) enema 1 Enema by RECTAL route as needed for constipation. FLUoxetine (PROZAC) 40 mg capsule Take 40 mg by mouth once daily. loperamide (IMODIUM) 2 mg cap(s) Take 2 capsules by mouth every 4 hours as needed for diarrhea. meloxicam (MOBIC) 7.5 mg tablet Take 15 mg by mouth once daily. magnesium hydroxide (MILK OF MAGNESIA ORAL) Take 30 mL by mouth every 24 hours. mirtazapine (REMERON) 15 mg tablet Take 1 tablet by mouth daily at bedtime. oxybutynin (DITROPAN) 5 mg tablet Take 5 mg by mouth two times a day. Polysaccharide Iron Complex 150 mg iron tab Take 1 tablet by mouth once daily. vit A/vit C/vit E/zinc/copper (PRESERVISION AREDS ORAL) Take 1 capsule by mouth two times a day. propranolol ER (INDERAL LA) 60 mg 24 hr capsule Take 60 mg by mouth once daily. Senna 8.6 mg tab Take 2 tablets by mouth two times a day. traMADol (ULTRAM) 100 mg tablet Take 100 mg by mouth every 6 hours as needed for pain. cyanocobalamin, vitamin B-12, (VITAMIN B-12 ORAL) Take 1,000 mcg by mouth once daily. No current facility-administered medications for this visit. Past Medical and Surgical History: has a past medical history of Age-related macular degeneration, BPPV (benign paroxysmal positional vertigo), Essential tremor, GERD (gastroesophageal reflux (more content not included)... Normal [facility] Vital Signs Date Time Vital Sign Value Performing Clinician Memo juan 04-28-2023 10:00-0500 Body height 167.6 cm Rebel De León MD Work Phone: [facility] 04-28-2023 10:00-0500 Body weight 88.45 kg Rebel De León MD Work Phone: [facility] Encounters Encounter Date Encounter Type Care Provider Facility Start: 06-03-2023 Telephone encounter Faizan Wynn MD Work Phone: General Surgery Comment on above: Orders Start: 04-28-2023 End: 04-28-2023 Refill Adalberto De León MD Work Phone: [facility] Comment on above: Refill Request Start: 04-28-2023 End: 04-28-2023 Office outpatient new 60 minutes Adalberto De León MD Work Phone: Neurology Comment on above: 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 (HCC) (Primary Dx); OAB (overactive bladder); History of dry mouth; Essential tremor Plan of Treatment Date Care Activity Detail Author Start: 02-15-2026 Diabetes Screening Diabetes Screenin g [facility] Start: 10-30-2023 Influenza vaccination Influenz a Vaccine (Season Ended) [facility] Start: 02-28-2023 Advance Directive Discussion Advance Directive Discussion [facility] Start: 10-29-2022 Covid-19 Vaccine ( season) Covid-19 Vaccine ( season) [facility] Start: 10-29-2022 Influenza vaccination Influenza Vacc ine (#1) [facility] Start: 2004 Pneumococcal Vaccine : 65+ (1 of 1 - PCV) Pneumococcal Vaccine: 65+ (1 of 1 - PCV) [facility] Start: 2004 Screening for osteoporosis Bone Density Screening [facility] Start: 1999 RSV Vaccine (1 - 1-d ose 60+ series) RSV Vaccine (1 - 1-dose 60+ series) [facility] Start: 1989 Shingrix Vaccine (1 of 2) Shingrix V accine (1 of 2) [facility] Start: 1958 Urine microalbumin profile DTaP,Tdap,Td Vaccine (1 - Tdap) [facility] Start: 1940 Covid-19 Vaccine (#1) Covid-19 Vacci ne (#1) [facility] Payers Date Payer Category Payer Medicare AETNA MEDICARE A ETNA MEDICARE PPO [id number] 2023-Present [phone] [address] [place] [address] PPO [id number] 2023 Medicare [id number] Social History Date Type Detail Facility Tobacco smoking stat [facility] Tobacco smoking consumption unknown [facility] Start: 04-28-2023 History of Social function [facility] Start: 04-28-2023 Patient Health Questionnaire 2 item (PHQ-2) [Reported] [facility] Adult Depression Scr eening Assessment 1 [facility] Start: 1940 Sex Assigned At Not on file [facility] Start: 1940 Sex Assigned At Female [facility] Start: 05-04-2023 Gender identity Identifies as female gender (finding) [facility] Note 06-07-2023 Telephone Encounter - Gabrielle Nichole RN - 06/07/2023 9:55 AM EDTTelephone Encounter - Amber Winslow LPN - 06/03/2023 11:27 AM EDT Note Date & Type Note Facility 06-07-2023 Miscellaneous Notes Formattin g of this note might be different from the original. Reviewed chart, the patient has never been evaluated by the general surgery office or had a procedure performed by our office. Called and spoke with Raquel, advised that I do not have any medical records for Cordelia. She voiced understanding. Gabrielle Nichole RN SERVANDO García at [facility] called. Raquel is asking that orders for upcoming surgery be faxed to [phone]. She states that their normal fax is down and perhaps missed orders to it. Amber Winslow LPN documented in this encounter [facility] Note 04-28-2023 Telephone Encounter - Lakeshia Price - 04/28/2023 1:08 PM EST Note Date & Type Note Facility 04-28-2023 Miscellaneous Notes Formattin g of this note is different from the original. Son called stating recently approved meds need to be re-sent to assisted living pharmacy. [facility] pharmacy fax [phone]. Pharmacy updated. Requested Prescriptions Pending Prescriptions Disp Refills donepezil (ARICEPT) 5 mg tablet 30 tablet 11 Sig: Take 1 tablet by mouth daily at bedtime. mirabegron (MYRBETRIQ) 25 mg Tb24 30 tablet 11 Sig: Take 1 tablet by mouth once daily. documented in this encounter [facility] Progress note 04-28-2023 Note Date & Type Note Facility 04-28-2023 Note HNO ID: [id number] Author: ADALBERTO DE LEÓN MD Service: ? Author Type: Physician Type: Progress Notes Filed: 04/28/2023 12:52 Note Text: [facility] - NEW PATIENT EVALUATION Primary Care Provider: Manuel Zhao MD [address] [place], [place] [id number] Dear Manuel Zhao MD: I had the pleasure of evaluating Ms. Gonsalez in our clinic today. As you know she is a 83 year old left-handed female who presents for evaluation of tremor since 2019. Subjective HISTORY OF PRESENT ILLNESS: Initial HPI She has had tremors for a few years and was diagnosed with essential tremor and this has been helped with propranolol. She has been having problems with her speech. She was seen by a neurologist in the [place] by a Dr. Shabazz who was concerned with Parkinson's disease. She has a history of seizures and was on Oxycarbazine in the past and it was stopped. She has not had more seizures. She appears to have been on Olanzapine for depression after her passed 04/27/2021. Movement Disorders Medications Schedule - as of the start of the visit: Medications None Questionnaires In addition, the following areas that may be affected by abnormal involuntary movements were evaluated: Daily activities Difficulties with eating: Yes (mild) Difficulties in dressing: Yes (mild) Difficulties with hygiene activities: Yes (mild) Difficulties with handwriting: Yes (severe) Difficulties with doing hobbies and other activities: Yes (severe) Difficulties turning in bed: Yes (severe) Difficulties getting out of bed, car or chair: Yes (mild) Tremors/Gait/Balance Shaking or tremors: Yes (mild) Walking and balance problems: Yes (severe) Number of falls in the Last Month: 0 Gait freezing: Yes (severe) Autonomic/Pain Lightheadeness on standing: Yes (mild) Urinary problems: Yes (mild) Constipation problems: Yes (moderate) Pain and other sensations: Yes (mild) Speech/Swallowing Speech problems: Yes (mild) Droolin (none) Chewing and swallowing problems: 0 (none) Sleep/Fatigue Sleep problems: Yes (slight) Daytime sleepiness: Yes (mild) Fatigue: Yes (mild) Mood/Behavior Depression: PHQ-9 Score: 4 usually representing no significant (0-4) depression. Anxiety: VAUGHN-7 Total Score: 0 usually representing no significant (0-4) anxiety. Finally, the following table shows the patient's overall global physical and mental health using the PROMIS scale: PROMIS-10 Flowsheet Row Office Visit from 04/28/2023 in Neurology Global Physical Health T Score 37.4 Global Mental Health T Score 45.8 0-10 Standard Pain Scale 4 *PROMIS-10 scoring scale: mean = 50, over 50 is above average, under 50 is below average ALLERGIES No Known Allergies Current Outpatient Medications Medication Sig acetaminophen (TYLENOL) 325 mg tablet Take 2 tablets by mouth every 4 hours as needed for pain. amLODIPine (NORVASC) 5 mg tablet Take 1 tablet by mouth once daily. BISACODYL RECTAL 10 mg by RECTAL route every 24 hours. as needed for constipation. cloNIDine HCl (CATAPRES) 0.1 mg tablet Take 0.1 mg by mouth. Give 1 tablet by mouth every 2 hours as need for HTN take 1 tab by mouth as needed if SBP>180 AND/OR DBP>100 May repeat dose 2 hours after if needed famotidine (PEPCID) 40 mg tablet Take 40 mg by mouth once daily as needed (Acid Reflux). sodium phosphate-sodium bisphosphate (FLEET) enema 1 Enema by RECTAL route as needed for constipation. FLUoxetine (PROZAC) 40 mg capsule Take 40 mg by mouth once daily. loperamide (IMODIUM) 2 mg cap(s) Take 2 capsules by mouth every 4 hours as needed for diarrhea. meloxicam (MOBIC) 7.5 mg tablet Take 15 mg by mouth once daily. magnesium hydroxide (MILK OF MAGNESIA ORAL) Take 30 mL by mouth every 24 hours. mirtazapine (REMERON) 15 mg tablet Take 1 tablet by mouth daily at bedtime. oxybutynin (DITROPAN) 5 mg tablet Take 5 mg by mouth two times a day. Polysaccharide Iron Complex 150 mg iron tab Take 1 tablet by mouth once daily. vit A/vit C/vit E/zinc/copper (PRESERVISION AREDS ORAL) Take 1 capsule by mouth two times a day. propranolol ER (INDERAL LA) 60 mg 24 hr capsule Take 60 mg by mouth once daily. Senna 8.6 mg tab Take 2 tablets by mouth two times a day. traMADol (ULTRAM) 100 mg tablet Take 100 mg by mouth every 6 hours as needed for pain. cyanocobalamin, vitamin B-12, (VITAMIN B-12 ORAL) Take 1,000 mcg by mouth once daily. No current facility-administered medications for this visit. Past Medical and Surgical History: has a past medical history of Age-related macular degeneration, BPPV (benign paroxysmal positional vertigo), Essential tremor, GERD (gastroesophageal reflux disease), Hiatal hernia, Hypercholesteremia, and Overactive bladder. has a past surgical history that includes salpingectomy or oopherectomy-ectopic; removal gallbladder; repair rotator cuff,acute (Right); part remv bladder,simple (2016); an (more content not included)... [facility] Instructions 04-28-2023 Patient Instructions Note Date & Type Note Facility 04-28-2023 Instructions Adalberto De León MD - 04/28/2023 11:07 AM EST It was a pleasure to see you today. 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 I don't see Parkinson's disease. In the past you may have been on Olanzapine (Zyprexa) which can cause Parkinson's disease like symptoms, so this may have been seen before. I would avoid this class of medication. Overactive bladder - You may want to see a urologist to see if your bladder stimulator is still working. I believe Oxybutynin is a bad choice for this because it may be effecting your memory. Myrbertriq or Vesicare would be a better choice. Since you have dry mouth the Myrbetriq may be a better choice. Dementia - I would recommend donepezil 5 mg at bedtime for this. Macular Degeneration - I agree with your son that you should get a eye exam and establish with ophthalmology and should not drive. Return if symptoms worsen or fail to improve. If there are any concerns before your next visit, please call or you can send a message through [employer]. You can also now schedule and select appointments through [employer]. Adalberto De León MD documented in this encounter [facility] History of Present illness Narrative 04-28-2023 Adalberto De León MD - 04/28/2023 10:20 AM EST Note Date & Type Note Facility 04-28-2023 History of Presen t illness Narrative [facility] - NEW PATIENT EVALUATION Primary Care Provider: Manuel Zhao MD [address] [place] [address] [address] [facility] [address] Dear Manuel Zhao MD: I had the pleasure of evaluating Ms. Gonsalez in our clinic today. As you know she is a 83 year old left-handed female who presents for evaluation of tremor since 2019. Subjective HISTORY OF PRESENT ILLNESS: Initial HPI She has had tremors for a few years and was diagnosed with essential tremor and this has been helped with propranolol. She has been having problems with her speech. She was seen by a neurologist in the [place], [place] by a Dr. Shabazz who was concerned with Parkinson's disease. She has a history of seizures and was on Oxycarbazine in the past and it was stopped. She has not had more seizures. She appears to have been on Olanzapine for depression after her passed 04/27/2021. Movement Disorders Medications Schedule - as of the start of the visit: Medications None Questionnaires In addition, the following areas that may be affected by abnormal involuntary movements were evaluated: Daily activities Difficulties with eating: Yes (mild) Difficulties in dressing: Yes (mild) Difficulties with hygiene activities: Yes (mild) Difficulties with handwriting: Yes (severe) Difficulties with doing hobbies and other activities: Yes (severe) Difficulties turning in bed: Yes (severe) Difficulties getting out of bed, car or chair: Yes (mild) Tremors/Gait/Balance Shaking or tremors: Yes (mild) Walking and balance problems: Yes (severe) Number of falls in the Last Month: 0 Gait freezing: Yes (severe) Autonomic/Pain Lightheadeness on standing: Yes (mild) Urinary problems: Yes (mild) Constipation problems: Yes (moderate) Pain and other sensations: Yes (mild) Speech/Swallowing Speech problems: Yes (mild) Droolin (none) Chewing and swallowing problems: 0 (none) Sleep/Fatigue Sleep problems: Yes (slight) Daytime sleepiness: Yes (mild) Fatigue: Yes (mild) Mood/Behavior Depression: PHQ-9 Score: 4 usually representing no significant (0-4) depression. Anxiety: VAUGHN-7 Total Score: 0 usually representing no significant (0-4) anxiety. Finally, the following table shows the patient's overall global physical and mental health using the PROMIS scale: PROMIS-10 Flowsheet Row Office Visit from 04/28/2023 in Neurology Global Physical Health T Score 37.4 Global Mental Health T Score 45.8 0-10 Standard Pain Scale 4 *PROMIS-10 scoring scale: mean = 50, over 50 is above average, under 50 is below average ALLERGIES No Known Allergies Current Outpatient Medications Medication Sig acetaminophen (TYLENOL) 325 mg tablet Take 2 tablets by mouth every 4 hours as needed for pain. amLODIPine (NORVASC) 5 mg tablet Take 1 tablet by mouth once daily. BISACODYL RECTAL 10 mg by RECTAL route every 24 hours. as needed for constipation. cloNIDine HCl (CATAPRES) 0.1 mg tablet Take 0.1 mg by mouth. Give 1 tablet by mouth every 2 hours as need for HTN take 1 tab by mouth as needed if SBP>180 AND/OR DBP>100 May repeat dose 2 hours after if needed famotidine (PEPCID) 40 mg tablet Take 40 mg by mouth once daily as needed (Acid Reflux). sodium phosphate-sodium bisphosphate (FLEET) enema 1 Enema by RECTAL route as needed for constipation. FLUoxetine (PROZAC) 40 mg capsule Take 40 mg by mouth once daily. loperamide (IMODIUM) 2 mg cap(s) Take 2 capsules by mouth every 4 hours as needed for diarrhea. meloxicam (MOBIC) 7.5 mg tablet Take 15 mg by mouth once daily. magnesium hydroxide (MILK OF MAGNESIA ORAL) Take 30 mL by mouth every 24 hours. mirtazapine (REMERON) 15 mg tablet Take 1 tablet by mouth daily at bedtime. oxybutynin (DITROPAN) 5 mg tablet Take 5 mg by mouth two times a day. Polysaccharide Iron Complex 150 mg iron tab Take 1 tablet by mouth once daily. vit A/vit C/vit E/zinc/copper (PRESERVISION AREDS ORAL) Take 1 capsule by mouth two times a day. propranolol ER (INDERAL LA) 60 mg 24 hr capsule Take 60 mg by mouth once daily. Senna 8.6 mg tab Take 2 tablets by mouth two times a day. traMADol (ULTRAM) 100 mg tablet Take 100 mg by mouth every 6 hours as needed for pain. cyanocobalamin, vitamin B-12, (VITAMIN B-12 ORAL) Take 1,000 mcg by mouth once daily. No current facility-administered medications for this visit. Past Medical and Surgical History: has a past medical history of Age-related macular degeneration, BPPV (benign paroxysmal positional vertigo), Essential tremor, GERD (gastroesophageal reflux disease), Hiatal hernia, Hypercholesteremia, and Overactive bladder. has a past surgical history that includes salpingectomy or oopherectomy-ectopic; removal gallbladder; repair rotator cuff,acute (Right); part remv bladder,simple (2016); and arthroplasty hemiarthroplasty (Right). Family History: family history is not on file. Objective Vital Signs: Ht 167.6 cm (5' 6 ) Wt 88.5 kg (195 lb) BMI 31.47 kg/m Orthostatic Vitals: Sitting: BP 148/72 Pulse 80 Standing: BP 131/82 Pulse 98 Weight: 88.5 kg (195 lb) Height: 167.6 cm (5' 6 ) No LMP recorded. Body mass index is 31.47 kg/m . General Physical Examination: General Exam General Neurological Examination: Neurological Exam Mental Status Oriented only to person. Thinks date is January 23, 2023. Speech is normal. Language is fluent with no aphasia. Cranial Nerves CN II-XII grossly intact, except as otherwise noted. Motor Normal muscle bulk throughout. Normal muscle tone. The following abnormal movements were seen: Strength is 5/5 throughout all four extremities. No rigidity. No resting tremor or bradykinesia. Minimal action tremor with left hand. Has left shoulder limitations. . Sensory Light touch is normal in upper and lower extremities. Reflexes Right Left Brachioradialis 2+ 2+ Biceps 2+ 2+ Patellar 1+ 1+ Achilles 1+ 1+ Coordination [id number], rapid alternating movements and vhit-[id number] normal bilaterally without dysmetria. Gait Casual gait: Wide stance. Hesitant and antalgic gait. Assessment and Plan: Assessment Ms. Gonsalez is a left-handed 83 year old year old female with dementia and mild action tremor. I don't see Parkinson's disease. She could be optimized from a cognitive and geriatric health perspective. The following are the current problems noted and addressed during this visit: Dementia due to medical condition without behavioral disturbance (hcc) (primary encounter diagnosis) Oab (overactive bladder) History of dry mouth Essential tremor Plan 04/28/2023 Visit: Tremor - This appears to be a mild essential tremor. I don't see Parkinson's disease. In the past you may have been on Olanzapine (Zyprexa) which can cause Parkinson's disease like symptoms, so this may have been seen before. I would avoid this class of medication. Overactive bladder - You may want to see a urologist to see if your bladder stimulator is still working. I believe Oxybutynin is a bad choice for this because it may be effecting your memory. Myrbertriq or Vesicare would be a better choice. Since you have dry mouth the Myrbetriq may be a better choice. Dementia - I would recommend donepezil 5 mg at bedtime for this. Macular Degeneration - I agree with your son that you should get a eye exam and establish with ophthalmology and should not drive. Patient's perception of importance for healthcare provider to let them know of research trials for which they may be eligible? Very Important Thank you for allowing me to be part of the clinical care of this patient! I look forward to continued participation in the patient s care with you. Please do not hesitate to call with any questions. Sincerely, Adalberto De León MD documented in this encounter [facility] Evaluation note Note Date & Type Note Facility Evaluation note Diagnosis Dementia due to medical condition without behavioral disturbance (HCC)- Primary Other persistent mental disorders due to conditions classified elsewhere OAB (overactive bladder) Hypertonicity of bladder History of dry mouth Disturbance of salivary secretion Essential tremor Essential and other specified forms of tremor documented in this encounter [facility] Summary Purpose Family History No Family History Records Found Advance Directives No Advanced Directives Records Found Additional Source Comments Source Comments (unrecognize d section and content) In the event this informatio n is protected by the Federal Confidentiality of Alcohol and Drug Abuse Patient Records regulations: The Federal rules restrict any use of the information to criminally investigate or prosecute any alcohol or drug abuse patient.[facility] event this information is protected by the Federal Confidentiality of Alcohol and Drug Abuse Patient Records regulations: The Federal rules restrict any use of the information to criminally investigate or prosecute any alcohol or drug abuse patient.[facility] event this information is protected by the Federal Confidentiality of Alcohol and Drug Abuse Patient Records regulations: The Federal rules restrict any use of the information to criminally investigate or prosecute any alcohol or drug abuse patient.[facility] Reason for Visit (unrecogniz ed section and content) Reason Comments Discuss Parkinson's Reason Onset Date Comments Refill Request 04/28/2023 Reason Comments Orders Care Teams (unrecognized sec tion and content) Corrections Identification Technician Relationship Specialty Start Date End Date Manuel Zhao MD [address] [facility] [address] [place], [place] [id number] PCP - General Family Medicine 04/28/23 Sun Deleon APRN.[employer]OV[employer] SUPERVISOR [address] [facility] [address] [place], [place] [id number] 04/26/23 Corrections Identification Technician Relationship Specialty Start Date End Date Mnauel Zhao MD [address] [facility] [address] [place], [place] [id number] PCP - General Family Medicine 04/28/23 Sun Deleon APRN.[employer]OV[employer] SUPERVISOR [address] [facility] [address] [place] [address] 04/26/23 Corrections Identification Technician Relationship Specialty Start Date End Date Manuel Zhao MD [address] [facility] [address] [place] [address] PCP - General Family Medicine 04/28/23 Sun Deleon APRN.[employer] REMOVAL SUPERVISOR [address] [facility] [address] [place] [address] 04/26/23 INFORMATION SOURCE (unrecogn ized section and content) DATE CREATED AUTHOR 06/08/2023 [facility] FOR RECORDS PERTAINING TO PATIENTS WHO ARE OR HAVE BEEN ENROLLED IN A CHEMICAL DEPENDENCY/SUBSTANCEABUSE PROGRAM, SOME INFORMATION MAY BE OMITTED. This clinical summary was aggregated from multiple sources. Caution should be exercised in using it in the provision of clinical care. This summary normalizes information from multiple sources, and as a consequence, information in this document may materially change the coding, format and clinical context of patient data. In addition, data may be omitted in some cases. CLINICAL DECISIONS SHOULD BE BASED ON THE PRIMARY CLINICAL RECORDS. [employer] [facility]. provides no warranty or guarantee of the accuracy or completeness of information in this document.
== END | disposition home or self-care (01) ==
LOC: LABSPEC 15:19
PROVIDERS: PCP Family Medicine; Referring Provider Nurse Practitioner Family; Visit Provider Nurse Practitioner Family
DX: R19.7 Diarrhea, unspecified (principal)
CPT/HCPCS: 87493

== ENCOUNTER → 2024-07-02 | Outpatient (CLI) | payer MEDICARE, SELFPAY ==
--- NOTE | 2024-07-02 15:43 | VDLE_ITS ---
Reason For Study Reason For Study: RLE Swelling RIGHT LEFT GSV is normal. FV is compressible, spontaneous, phasic, competent CFV is compressible, spontaneous, phasic, competent and demonstrates normal augmentation. and demonstrates normal augmentation. FV is compressible, spontaneous, phasic, competent and demonstrates normal augmentation. POP V is compressible, spontaneous, phasic, competent and demonstrates normal augmentation. T/P Trunk is compressible. PTV is compressible. RT PerV is compressible. Nonvascularized area of mixed echoes measuring approximately 4.67cm x 1.46cm noted at Rt Medial Knee. Procedure This is a venous duplex using B-mode, color flow and spectral Doppler. Exam performed in department. The exam was diagnostic. A preliminary report was called and/or faxed to [facility]. VL/Venous Duplex US, Unilateral Interpretation Summary Deep veins of the right lower extremity are patent and compressible segmentally . There is no evidence of right lower extremity deep vein thrombosis. The right great saphenous vein appears patent a nd compressible segmentally. Nonvascularized area of mixed echoes measuring approximately 4.67cm x 1.46cm no grace at right medial knee. Ordering Physician: Xiomara Shields Referring Physician: Manuel Zhao Performed By: Niko King RVT
== END | disposition home or self-care (01) ==
LOC: CVS 15:31
PROVIDERS: PCP Family Medicine
DX: M79.89 Other specified soft tissue disorders (principal)
CPT/HCPCS: 93971